=== PATIENT | male | born 1960 | race Caucasian/White ===

== ENCOUNTER → 2016-09-23 | Outpatient (CLI) | payer BC ==
[~2016-09-23] MED LIST: ATOR-26 PO; MULTTAB58 PO; TPRSR/50 PO; WARF-246 PO
[2016-09-23 09:32] LABS: BASO % 0.2 %; BASO ABS # 0.02 K/uL (0-0.2); COMPLETE YES; EOS % 1.5 %; HEMATOCRIT 44.9 % (42-52); IG% 0.1 %; LYMPH % 29.1 %; LYMPH ABS # 2.67 K/uL (1.2-3.4); MEAN CELL VOLUME 90.9 fL (80-100); MEAN CORPUSCULAR HEMOGLOBIN 31.6 pg (25-34); MEAN CORPUSCULAR HGB CONC 34.7 g/dl (32-36); MEAN PLATELET VOLUME 12.5 fL (7.4-10.4); MONO % 5.3 %; NEUT % 63.8 %; PLATELET COUNT 195 K/uL (130-400); RED BLOOD COUNT 4.94 M/uL (4.7-6.1); WHITE BLOOD COUNT 9.17 K/uL (4.8-10.8)
[2016-09-23 09:48] LABS: INR 1.2 (0.9-1.1); PROTHROMBIN TIME (PATIENT) 13.2 SECONDS (9.0-12.0)
== END | disposition home or self-care (01) ==
LOC: C.LAB 07:04
PROVIDERS: ATTEND Internal Medicine Cardiovascular Disease
DX: N40.1 Benign prostatic hyperplasia with lower urinary tract symptoms (principal); I35.9 Nonrheumatic aortic valve disorder, unspecified; I25.10 Atherosclerotic heart disease of native coronary artery without angina pectoris

== ENCOUNTER → 2016-10-04 | Outpatient (CLI) | payer BC ==
[2016-10-04 09:40] LABS: INR 2.5 (0.9-1.1); PROTHROMBIN TIME (PATIENT) 27.8 SECONDS (9.0-12.0)
== END | disposition home or self-care (01) ==
LOC: C.LAB 07:15
PROVIDERS: ATTEND Internal Medicine Cardiovascular Disease
DX: I35.9 Nonrheumatic aortic valve disorder, unspecified (principal)

== ENCOUNTER → 2017-07-03 | Outpatient (CLI) | payer BC | END | disposition home or self-care (01) | LOC: C.LAB 08:50 | PROVIDERS: ATTEND Physician Assistant | DX: E78.5 Hyperlipidemia, unspecified (principal) ==

== ENCOUNTER 2017-12-16 14:09 | Inpatient (IN) | payer BC ==
[2017-12-16] VITALS (9 sets, daily range): BP systolic 131–165; BP diastolic 79–180; PULSE 79–90; TEMP 36.3–36.8; O2SAT 16–98; Ht 177.8 cm; Wt 93.5 kg
[~2017-12-16] VITALS: Ht 177.8 cm; Wt 93.5 kg
[~2017-12-16 14:09] MED LIST changes: -ATOR-26 PO; -WARF-246 PO
[2017-12-16] MEDS ORDERED: SODIUM CHLORIDE 0.9% 1000ML 1,000 ML IV STA (14:14)
[2017-12-16] MEDS ORDERED: ONDANSETRON INJ 2 MG/ML 2 ML VIAL IV STA (14:14)
[2017-12-16] MEDS ORDERED: OPTIRAY 320 IV PRN (14:45)
[2017-12-16] MEDS ORDERED: PROMETHAZINE HCL INJ 12.5 MG in SODIUM CHLORIDE 0.9% 50ML 50 ML IV STA (14:48)
[2017-12-16] MEDS ORDERED: PROMETHAZINE HCL INJ 25 MG/ML 1 ML VIAL ONE (14:58)
--- NOTE | 2017-12-16 14:58 | EMERGENCY ROOM VISIT NOTE ---
History Report prepared by Alondra: Ashlyn Zuniga Under the Supervision of: Dr. Keo Capellan D.O. First contact with patient: 14:10 Stated Complaint: ILLNESS History of Present Illness The patient is a 57 year old male who presents to the Emergency Room with complaints of an episode of an illness starting 30 minutes ago. 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 He states that he went over to [place] for lunch with his coworkers. He states that 20 minutes after returning to work he started to feel nauseous. He reports he then had abdominal pain, diaphoresis, and vomiting. He states that none of his coworkers became sick, but he thinks it is food poisoning. The patient states that he felt like on the way here he was going to lose control of his bowels. The patient notes that he has not drank anything all day. The patient notes that she takes Warfarin and Metoprolol. The patient denies chest pain, shortness of breath, current abdominal pain, headache, fever , chills, confusion, ever having this happen before, working with chemicals today, a history of abdominal surgeries, a history of cancer, and a history of diabetes. Source of History: patient Onset: 30 minutes ago Position: abdomen Quality: other (illness) Timing: other (episode) Associated Symptoms: + diaphoresis, + nausea, + vomiting, No fevers, No chills, No headache, No chest pain, No SOB, No abdominal pain Note: The patient complains of feeling like he is going to lose his bowels. The patient denies confusion. Review of Systems See HPI for pertinent positives & negatives. A total of 10 systems reviewed and were otherwise negative. Past Medical & Surgical Medical Problems: (1) AORTOCORONARY BYPASS (2) ATRIAL FIBRILLATION (3) CALCULUS OF URETER (4) CORON ATHEROSCLER NOS TYPE VESSEL, [place] OR GRAFT (5) DEPRESSIVE DISORDER NEC (6) ENDOCARDITIS NOS (7) HYPERTENSION NOS (8) PURE HYPERCHOLESTEROLEM Surgical Problems: (1) H/O aortic valve replacement Family History Cancer Heart disease Hypertension Kidney disease or stones Social History Smoking Status: Never Smoker Alcohol Use: none Drug Use: none Marital Status: Housing Status: lives with significant other Occupation Status: retired Current/Historical Medications Scheduled Atorvastatin (Lipitor), 80 MG PO QAM Metoprolol Succinate (Toprol Xl), 50 MG PO DAILY Multiple Vitamin (Multivitamin), 1 TAB PO DAILY Warfarin Sodium (Warfarin Sodium), 15 MG PO 5XWK Warfarin Sodium (Warfarin Sodium), 10 MG PO 2XWK Allergies Coded Allergies: Itraconazole (Verified Allergy, Unknown, headache, 11/05/13) pt Sertraline (Verified Allergy, Unknown, feels nutty, 11/05/13) pt Physical Exam Vital Signs Date Time Temp Pulse Resp B/P (MAP) Pulse Ox O2 Delivery O2 Flow Rate FiO2 12/16/17 18:20 74 12 153/80 95 Room Air 12/16/17 18:05 74 16 162/82 94 Room Air 12/16/17 18:00 77 12 154/78 95 Room Air 12/16/17 17:47 80 20 168/87 99 Room Air 12/16/17 17:30 70 12 186/96 94 Room Air 12/16/17 17:16 70 22 179/99 97 Room Air 12/16/17 17:10 72 23 185/92 97 Room Air 12/16/17 17:02 70 14 181/97 98 Room Air 12/16/17 16:40 69 14 151/83 98 Room Air 12/16/17 15:53 74 18 145/77 93 Room Air 12/16/17 14:40 99 Room Air 12/16/17 14:39 69 18 146/74 100 Room Air 12/16/17 14:27 78 12/16/17 14:15 36.7 69 18 138/74 99 Room Air Physical Exam GENERAL: Patient is listless and slow to respond to questions. Very diaphoretic. EYES: The conjunctivae are clear. The pupils are round and reactive. EARS, NOSE, MOUTH AND THROAT: The nose is without any evidence of any deformity. Mucous membranes are dry. Tongue is midline NECK: The neck is nontender and supple. RESPIRATORY: Normal respiratory effort is noted. There is no evidence of wheezing rhonchi or rales to auscultation. CARDIOVASCULAR: Regular rate and rhythm. There was a metallic click noted. GASTROINTESTINAL: The abdomen is mildly distended, but soft. No tenderness, guarding, or rigidity. Bowel sounds are present in all quadrants. MUSCULOSKELETAL/EXTREMITIES: There is no evidence of gross deformity. Full range of motion is noted in the hips and shoulders. SKIN: Trace pedal edema bilaterally. Skin is cool and diaphoretic. There is no obvious evidence of any rash. There are no petechiae, pallor or cyanosis noted. NEUROLOGIC: Patient is oriented x3. Strength is symmetric. No facial droop or drift appreciated. Pressured speech, but understandable. Medical Decision & Procedures ER Provider Diagnostic Interpretation: Radiology results as stated below per my review and radiologist interpretation: CHEST ONE VIEW PORTABLE HISTORY: 57 years-old Male EVALUATE ALTERED MENTAL STATUS/WEAKNESS acute weakness with altered mental status COMPARISON: Chest radiograph 07/08/2012 TECHNIQUE: Portable AP view of the chest FINDINGS: Cardiac silhouette is enlarged, increased in size from comparison. Prior median sternotomy with cardiac valvular prosthesis. Surgical clips project over the left heart border. Prominence of the mediastinum. No pneumothorax, pleural effusion, focal airspace consolidation or overt pulmonary edema. The bones of the chest appear grossly intact. IMPRESSION: Cardiomegaly without acute process. The above report was generated using voice recognition software. It may contain grammatical, syntax or spelling errors. Electronically signed by: Juan Bhatia M.D. 12/16/2017 3:54 PM Dictated Date/Time: 12/16/2017 3:53 PM HEAD WITHOUT CONTRAST (CT) CLINICAL HISTORY: 57 years-old Male with vomiting, letargic. Acute vomiting with dizziness and weakness TECHNIQUE: Multiple axial CT images of the head were obtained without contrast. A dose lowering technique was utilized adhering to the principles of ALARA. CT DOSE: 614.27 mGy.cm COMPARISON: None. FINDINGS: No acute intracranial hemorrhage, midline shift, intracranial mass, hydrocephalus, territorial ischemia or abnormal extra-axial collection. 2.1 x 1.3 cm area of low-attenuation involving the peripheral aspect of the mid right cerebellar hemisphere suggests encephalomalacia from remote infarction. There is an area of ill-defined low-attenuation involving the right occipital lobe on image 13 series 2 with possible blurring of the espinal-white interface within this distribution. Cerebral vascular calcifications are noted. The calvarium is intact. The paranasal sinuses, mastoid air cells, and middle ear cavities are clear. IMPRESSION: 1. No acute intracranial hemorrhage, midline shift or territorial infarct. 2. Ill-defined area of low-attenuation involving the right occipital lobe may reflect an area of developing acute ischemic infarction within the appropriate clinical setting or alternatively may reflect sulcal averaging with adjacent encephalomalacia. These findings could be correlated with MRI of the brain if clinically indicated. 3. Encephalomalacia of the right cerebellar hemisphere from remote infarct. The above report was generated using voice recognition software. It may contain grammatical, syntax or spelling errors. Electronically signed by: Juan Bhatia M.D. 12/16/2017 3:23 PM Dictated Date/Time: 12/16/2017 3:16 PM ABDOMEN AND PELVIS CT WITH IV CONTRAST CT DOSE: 509.26 mGy.cm HISTORY: Acute vomiting vomiting TECHNIQUE: Multiaxial CT images of the abdomen and pelvis were performed following the use of intravenous contrast. A dose lowering technique was utilized adhering to the principles of ALARA. COMPARISON STUDY: CT abdomen and pelvis 03/31/2015. FINDINGS: Bibasilar groundglass densities suggest atelectasis. No pneumatosis or pneumoperitoneum identified. Imaged inferior cardiac chambers are mildly enlarged with coronary arterial calcifications noted. Gallbladder, liver, spleen, pancreas and adrenal glands are unremarkable. 3 mm nonobstructing calculus of the interpolar right kidney with nonobstructing calculi of the inferior pole left kidney also noted measuring up to 3 mm. No ureteral calculi or obstructive uropathy identified. The ureters appear unremarkable. Prostamegaly. Bladder is partially decompressed. Moderate mixed plaquing of the aorta without aneurysm. IVC appears unremarkable. No pathologically enlarged lymph nodes identified. Small sliding-type hiatal hernia. No bowel obstruction. Moderate stool volume about the sigmoid colon and rectum with stool ball within the rectal vault. Colonic diverticulosis without definite CT evidence of acute diverticulitis. Mild wall thickening about the mid sigmoid colon suggests hypertrophy from chronic diverticular disease. The terminal ileum and appendix appear unremarkable. No ascites or mesenteric inflammatory changes. The soft tissues are within normal limits. Degenerative changes of the hips and spine are noted. IMPRESSION: 1. Probable mild constipation without bowel obstruction or focal bowel wall thickening. 2. Colonic diverticulosis without diverticulitis. 3. Bilateral nephrolithiasis without ureteral calculi or obstructive uropathy. 4. Prostamegaly. 5. Small sliding-type hiatal hernia. Electronically signed by: Juan Bhatia M.D. 12/16/2017 3:28 PM Dictated Date/Time: 12/16/2017 3:21 PM Laboratory Results 12/16/17 14:15 Red Blood Count 5.07, Mean Corpuscular Volume 89.2, Mean Corpuscular Hemoglobin 31.6, Mean Corpuscular Hemoglobin Concent 35.4, Mean Platelet Volume 12.1, Neutrophils (%) (Auto) 58.8, Lymphocytes (%) (Auto) 33.2, Monocytes (%) (Auto) 7.2, Eosinophils (%) (Auto) 0.4, Basophils (%) (Auto) 0.2, Neutrophils # (Auto) 7.51, Lymphocytes # (Auto) 4.24, Monocytes # (Auto) 0.92, Eosinophils # (Auto) 0.05, Basophils # (Auto) 0.02 12/16/17 14:15 Test 12/16/17 14:15 12/16/17 15:09 12/16/17 15:43 White Blood Count 12.77 K/uL (4.8-10.8) Red Blood Count 5.07 M/uL (4.7-6.1) Hemoglobin 16.0 g/dL (14.0-18.0) Hematocrit 45.2 % (42-52) Mean Corpuscular Volume 89.2 fL (80-100) Mean Corpuscular Hemoglobin 31.6 pg (25-34) Mean Corpuscular Hemoglobin Concent 35.4 g/dl (32-36) Platelet Count 199 K/uL (130-400) Mean Platelet Volume 12.1 fL (7.4-10.4) Neutrophils (%) (Auto) 58.8 % Lymphocytes (%) (Auto) 33.2 % Monocytes (%) (Auto) 7.2 % Eosinophils (%) (Auto) 0.4 % Basophils (%) (Auto) 0.2 % Neutrophils # (Auto) 7.51 K/uL (1.4-6.5) Lymphocytes # (Auto) 4.24 K/uL (1.2-3.4) Monocytes # (Auto) 0.92 K/uL (0.11-0.59) Eosinophils # (Auto) 0.05 K/uL (0-0.5) Basophils # (Auto) 0.02 K/uL (0-0.2) RDW Standard Deviation 42.5 fL (36.4-46.3) RDW Coefficient of Variation 13.1 % (11.5-14.5) Immature Granulocyte % (Auto) 0.2 % Immature Granulocyte # (Auto) 0.03 K/uL (0.00-0.02) Prothrombin Time 12.7 SECONDS (9.0-12.0) Prothromb Time International Ratio 1.2 (0.9-1.1) Activated Partial Thromboplast Time 24.0 SECONDS (21.0-31.0) Partial Thromboplastin Ratio 0.9 Est Creatinine Clear Calc Drug Dose 94.2 ml/min Estimated GFR () 93.0 Estimated GFR (Non- 80.3 BUN/Creatinine Ratio 21.6 (10-20) Calcium Level 9.5 mg/dl (8.5-10.1) Magnesium Level 2.4 mg/dl (1.8-2.4) Total Bilirubin 1.0 mg/dl (0.2-1) Direct Bilirubin 0.2 mg/dl (0-0.2) Aspartate Amino Transf (AST/SGOT) 23 U/L (15-37) Alanine Aminotransferase (ALT/SGPT) 28 U/L (12-78) Alkaline Phosphatase 81 U/L (45-117) Total Creatine Kinase 247 U/L (39-308) Creatine Kinase MB 2.6 ng/ml (0.5-3.6) Creatine Kinase MB Ratio 1.1 (0-3.0) Troponin I < 0.015 ng/ml (0-0.045) Total Protein 8.1 gm/dl (6.4-8.2) Albumin 4.6 gm/dl (3.4-5.0) Lipase 129 U/L (73-393) Thyroid Stimulating Hormone (TSH) 1.990 uIu/ml (0.300-4.500) Bedside Hemoglobin 14.3 g/dl (14.0-18.0) Bedside Hematocrit 42 % (42-52) Bedside Sodium 144 mEq/L (135-144) Bedside Potassium 3.6 mEq/L (3.3-5.0) Bedside Chloride 108 mEq/L (101-112) Bedside Total CO2 23 mEq/l (24-31) Anion Gap 17.0 mmol/L (16-25) Bedside Blood Urea Nitrogen 24 mg/dl (7-18) Bedside Creatinine 0.8 mg/dl (0.6-1.3) Bedside Glucose (other) 153 mg/dl (70-99) Bedside Ionized Calcium (Karyn) 1.09 mmol/l (1.12-1.32) Urine Color YELLOW Urine Appearance CLEAR (CLEAR) Urine pH 7.5 (4.5-7.5) Urine Specific [place] 1.042 (1.000-1.030) Urine Protein NEG (NEG) Urine Glucose (UA) NEG (NEG) Urine Ketones 1+ (NEG) Urine Occult Blood NEG (NEG) Urine Nitrite NEG (NEG) Urine Bilirubin NEG (NEG) Urine Urobilinogen NEG (NEG) Urine Leukocyte Esterase TRACE (NEG) Urine WBC (Auto) 1-5 /hpf (0-5) Urine RBC (Auto) 0-4 /hpf (0-4) Urine Hyaline Casts (Auto) 1-5 /lpf (0-5) Urine Epithelial Cells (Auto) 5-10 /lpf (0-5) Urine Bacteria (Auto) NEG (NEG) Laboratory results per my review. Medications Administered Medications (Trade) Dose Ordered Sig/Jesus Route Start Time Stop Time Status Last Admin Dose Admin Ondansetron HCl (Zofran Inj) 4 mg NOW STAT IV 12/16/17 14:14 12/16/17 14:16 DC 12/16/17 14:32 4 MG Sodium Chloride 1,000 ml @ 999 mls/hr Q1H1M STAT IV 12/16/17 14:14 12/16/17 15:14 DC 12/16/17 14:14 999 MLS/HR Promethazine HCl 12.5 mg/Sodium Chloride 50.5 ml @ 204 mls/hr NOW STAT IV 12/16/17 14:48 12/16/17 15:02 DC 12/16/17 15:01 204 MLS/HR Alteplase, Recombinant 81 mg/ Empty Bag 81 ml @ 81 mls/hr TODAY@1706 IV 12/16/17 17:06 12/16/17 18:05 DC 12/16/17 17:06 81 MLS/HR Alteplase, Recombinant 9 mg/ Syringe 9 ml @ 9 mls/min TODAY@1705 IV 12/16/17 17:05 12/16/17 17:06 DC 12/16/17 17:05 9 MLS/MIN ECG Per My Interpretation Indication: abdominal pain Rate (beats per minute): 61 Rhythm: sinus rhythm Findings: 1st degree AV block, Q waves (Anterior), other (LVH noted by voltage criteria) Comparison ECG Date: 11/05/2013 Change: no significant change ED Course 1411: The patient was evaluated in room C6. A complete history and physical examination were performed. 1414: Ordered NSS 1000 ml @ 999 mls/hr IV, Zofran Inj 4 mg IV. 1448: Ordered Promethazine HCL 12.5 mg/Sodium Chloride 50.5 ml @ 204 mls/hr IV. 1511: I reevaluated the patient and he is not looking well. He is still vomiting. 1537: I reevaluated the patient and I asked that they perform a stroke score on the patient. 1546: The patient had a stroke score of 5 according the nursing staff. A stroke alert was called at this time. 1610: I discussed the patient with Dr. Perico Lynch. They will evaluate the patient through the tele-stroke. 1642: Dr. Remi Lynch called me back and recommended discussing the CT with the radiologist. She recommends TPA if the stroke is confirmed that it is very early on and is less than 1/3 of the territory. 1645: I spoke to our radiologist here. They report that it is very small and is definitely smaller than 1/3 of the territory. They state that it is believed to be acute as well. 1652: I discussed the patient's case and what the radiologist said with Dr. Remi Lynch. It is agreed that the patient should receive TPA. 1653: I reevaluated the patient at this time and discussed the risks and benefits of TPA with him. He states that he would like the medication. 1705: Ordered Alteplase Recombinant 9 mg/Syringe 9 ml @ 9 mls/min IV. 1706: Ordered Alteplase Recombinant 81 mg/Empty Bag 81 ml @ 81 mls/hr Protocol IV. 1707: [facility]'s [facility]. The patient will be evaluated for further management. Medical Decision Differential diagnosis: Etiologies such as gastroenteritis, food borne illness, infections, appendicitis , diverticulitis, inflammatory bowel disease, obstruction, GI bleed, biliary pathology, as well as others were entertained. Nursing notes reviewed. Additional history was obtained from the prehospital personnel. The patient is a 57-year-old male who presented to the emergency department for an evaluation of nausea and vomiting. The patient's condition was rather complicated at first. His only complaint was nausea vomiting. He denies any headache. He did not have any facial droop or unilateral weakness. The patient 's speech was understandable but somewhat pressured. He does have a history of aortic valve replacement with Coumadin use but his INR was found to be subtherapeutic. The patient was reevaluated multiple times. CT the abdomen and pelvis did not reveal any acute intra-abdominal pathology. CT the head showed an area of previous infarct as well as a possible early infarct. The patient was then made a stroke alert and I discussed his case with the [facility] stroke neurologist. They recommended that we consider using TPA and the patient given his age and comorbidities. I discussed this with the patient and he was agreeable to TPA. The patient was given TPA in the emergency department. He was reevaluated multiple times. I discussed his case with the on-call [facility] hospitalist. It is possible that the patient's overall condition could be consistent with a posterior circulation stroke. The patient was admitted to the hospital by the [facility] hospitalist group. Further workup is still pending. Medication Reconcilliation Current Medication List: was personally reviewed by me Blood Pressure Screening Patient's blood pressure: Elevated blood pressure Will be further monitored by the hospitalist. Consults Time Called: 1559 Consulting Physician: Dr. Perico Lynch Returned Call: 1610 I discussed the patient with Dr. Perico Lynch. They will evaluate the patient through the tele-stroke. Additional Consults: Time Called: 1648 Consulted Physician: Dr. Remi [facility] Returned Call: 1652 Additional Comments: I discussed the patient's case and what the radiologist said with Dr. Remi Lynch. It is agreed that the patient should receive TPA. Time Called: 1703 Consulted Physician: Dr. Arechiga Hospitalist Returned Call: 1704 Additional Comments: I notified Dr. Arechiga Hospitalist of the patient's case. The patient will be evaluated for further management. Impression Primary Impression: Intractable vomiting Additional Impressions: CVA (cerebral vascular accident) Vertebral-basilar artery occlusive syndrome Critical Care I have personally spent greater than 60 minutes of critical care time in the direct management of this patient. This includes bedside care, interpretation of diagnostic studies, and testing, discussion with consultants, patient, and family members, and other required patient management activities. This 60 minutes is in excess of all separately billable procedures. Scribe Attestation The scribe's documentation has been prepared under my direction and personally reviewed by me in its entirety. I confirm that the note above accurately reflects all work, treatment, procedures, and medical decision making performed by me. Departure Information Dispostion Being Evaluated By Hospitalist Referrals No Doctor, Assigned (PCP) Stroke History Time Last Known Well 1340 Stroke t-PA Criteria Reviewed Meets criteria for t-PA Reason t-PA Not Given Treatment provided - N/A Problem Qualifiers Primary Impression: Intractable vomiting Vomiting type: unspecified Nausea presence: with nausea Qualified Codes: R11.2 - Nausea with vomiting, unspecified Additional Impressions: CVA (cerebral vascular accident) CVA mechanism: unspecified Qualified Codes: I63.9 - Cerebral infarction, unspecified
[2017-12-16 15:05] LABS: BASO % 0.2 %; BASO ABS # 0.02 K/uL (0-0.2); EOS % 0.4 %; EOS ABS # 0.05 K/uL (0-0.5); HEMATOCRIT 45.2 % (42-52); IG# 0.03 K/uL (0.00-0.02); LYMPH % 33.2 %; LYMPH ABS # 4.24 K/uL (1.2-3.4); MEAN CELL VOLUME 89.2 fL (80-100); MEAN CORPUSCULAR HEMOGLOBIN 31.6 pg (25-34); MEAN CORPUSCULAR HGB CONC 35.4 g/dl (32-36); MEAN PLATELET VOLUME 12.1 fL (7.4-10.4); MONO % 7.2 %; MONO ABS # 0.92 K/uL (0.11-0.59); NEUT % 58.8 %; NEUT ABS # 7.51 K/uL (1.4-6.5); PLATELET COUNT 199 K/uL (130-400); RED CELL DISTRIBUTION WIDTH CV 13.1 % (11.5-14.5); RED CELL DISTRIBUTION WIDTH SD 42.5 fL (36.4-46.3); WHITE BLOOD COUNT 12.77 K/uL (4.8-10.8)
[2017-12-16 15:15] LABS: INR 1.2 (0.9-1.1)
[2017-12-16 15:18] LABS: ISTAT CREATININE 0.8 mg/dl (0.6-1.3); ISTAT IONIZED CALCIUM 1.09 mmol/l (1.12-1.32); ISTAT POTASSIUM 3.6 mEq/L (3.3-5.0)
--- NOTE | 2017-12-16 15:24 | DIAGNOSTIC IMAGING REPORT ---
HEAD WITHOUT CONTRAST (CT) CLINICAL HISTORY: 57 years-old Male with vomiting, letargic. Acute vomiting with dizziness and weakness TECHNIQUE: Multiple axial CT images of the head were obtained without contrast. A dose lowering technique was utilized adhering to the principles of ALARA. CT DOSE: 614.27 mGy.cm COMPARISON: None. FINDINGS: No acute intracranial hemorrhage, midline shift, intracranial mass, hydrocephalus, territorial ischemia or abnormal extra-axial collection. 2.1 x 1.3 cm area of low-attenuation involving the peripheral aspect of the mid right cerebellar hemisphere suggests encephalomalacia from remote infarction. There is an area of ill-defined low-attenuation involving the right occipital lobe on image 13 series 2 with possible blurring of the espinal-white interface within this distribution. Cerebral vascular calcifications are noted. The calvarium is intact. The paranasal sinuses, mastoid air cells, and middle ear cavities are clear. IMPRESSION: 1. No acute intracranial hemorrhage, midline shift or territorial infarct. 2. Ill-defined area of low-attenuation involving the right occipital lobe may reflect an area of developing acute ischemic infarction within the appropriate clinical setting or alternatively may reflect sulcal averaging with adjacent encephalomalacia. These findings could be correlated with MRI of the brain if clinically indicated. 3. Encephalomalacia of the right cerebellar hemisphere from remote infarct. The above report was generated using voice recognition software. It may contain grammatical, syntax or spelling errors. Electronically signed by: Juan Bhatia M.D. 12/16/2017 3:23 PM Dictated Date/Time: 12/16/2017 3:16 PM
--- NOTE | 2017-12-16 15:29 | DIAGNOSTIC IMAGING REPORT ---
ABDOMEN AND PELVIS CT WITH IV CONTRAST CT DOSE: 509.26 mGy.cm HISTORY: Acute vomiting vomiting TECHNIQUE: Multiaxial CT images of the abdomen and pelvis were performed following the use of intravenous contrast. A dose lowering technique was utilized adhering to the principles of ALARA. COMPARISON STUDY: CT abdomen and pelvis 03/31/2015. FINDINGS: Bibasilar groundglass densities suggest atelectasis. No pneumatosis or pneumoperitoneum identified. Imaged inferior cardiac chambers are mildly enlarged with coronary arterial calcifications noted. Gallbladder, liver, spleen, pancreas and adrenal glands are unremarkable. 3 mm nonobstructing calculus of the interpolar right kidney with nonobstructing calculi of the inferior pole left kidney also noted measuring up to 3 mm. No ureteral calculi or obstructive uropathy identified. The ureters appear unremarkable. Prostamegaly. Bladder is partially decompressed. Moderate mixed plaquing of the aorta without aneurysm. IVC appears unremarkable. No pathologically enlarged lymph nodes identified. Small sliding-type hiatal hernia. No bowel obstruction. Moderate stool volume about the sigmoid colon and rectum with stool ball within the rectal vault. Colonic diverticulosis without definite CT evidence of acute diverticulitis. Mild wall thickening about the mid sigmoid colon suggests hypertrophy from chronic diverticular disease. The terminal ileum and appendix appear unremarkable. No ascites or mesenteric inflammatory changes. The soft tissues are within normal limits. Degenerative changes of the hips and spine are noted. IMPRESSION: 1. Probable mild constipation without bowel obstruction or focal bowel wall thickening. 2. Colonic diverticulosis without diverticulitis. 3. Bilateral nephrolithiasis without ureteral calculi or obstructive uropathy. 4. Prostamegaly. 5. Small sliding-type hiatal hernia. Electronically signed by: Juan Bhatia M.D. 12/16/2017 3:28 PM Dictated Date/Time: 12/16/2017 3:21 PM
[2017-12-16 15:32] LABS: ALBUMIN 4.6 gm/dl (3.4-5.0); ALKALINE PHOSPHATASE 81 U/L (45-117); ALT/SGPT 28 U/L (12-78); AST/SGOT 23 U/L (15-37); BLOOD UREA NITROGEN 22 mg/dl (7-18); CALCIUM 9.5 mg/dl (8.5-10.1); CARBON DIOXIDE 22 mmol/L (21-32); CKMB 2.6 ng/ml (0.5-3.6); CREATININE 1.03 mg/dl (0.60-1.40); GLUCOSE 148 mg/dl (70-99); LIPASE 129 U/L (73-393); POTASSIUM 3.5 mmol/L (3.5-5.1); SODIUM 142 mmol/L (136-145); TOTAL PROTEIN 8.1 gm/dl (6.4-8.2)
--- NOTE | 2017-12-16 15:55 | DIAGNOSTIC IMAGING REPORT ---
CHEST ONE VIEW PORTABLE HISTORY: 57 years-old Male EVALUATE ALTERED MENTAL STATUS/WEAKNESS acute weakness with altered mental status COMPARISON: Chest radiograph 07/08/2012 TECHNIQUE: Portable AP view of the chest FINDINGS: Cardiac silhouette is enlarged, increased in size from comparison. Prior median sternotomy with cardiac valvular prosthesis. Surgical clips project over the left heart border. Prominence of the mediastinum. No pneumothorax, pleural effusion, focal airspace consolidation or overt pulmonary edema. The bones of the chest appear grossly intact. IMPRESSION: Cardiomegaly without acute process. The above report was generated using voice recognition software. It may contain grammatical, syntax or spelling errors. Electronically signed by: Juan Bhatia M.D. 12/16/2017 3:54 PM Dictated Date/Time: 12/16/2017 3:53 PM
[2017-12-16] MEDS ORDERED: METO-217 PO (16:17)
[2017-12-16] MEDS ORDERED: ATOR-26 PO (16:43)
[2017-12-16] MEDS ORDERED: ALTEPLASE, RECOMBINANT INJ 9 MG in SYRINGE 0 ML IV SCH (17:05)
[2017-12-16] MEDS ORDERED: SET 2260-0500 IV ONE (17:06)
[2017-12-16] MEDS ORDERED: ALTEPLASE, RECOMBINANT INJ 81 MG in EMPTY BAG 0 ML IV SCH (17:06)
[2017-12-16] MEDS ORDERED: ICU PROTOCOL FOR HYPERGLYCEMIA PRN (18:00)
[2017-12-16] MEDS ORDERED: ACETAMINOPHEN 325 MG TAB PO PRN (18:00)
[2017-12-16] MEDS ORDERED: PHARMACIST DISCHARGE MED REC CONSULT PRN ×3 (18:00→23:00)
--- NOTE | 2017-12-16 18:31 | History and Physical ---
History & Physical Date & Time of Service: Dec 16, 2017 at 17:26 Chief Complaint: Illness Primary Care Physician: No Doctor, Assigned History of Present Illness Source: patient, clinic records Mr. Ríos was at work today when he began to feel a strange feeling in his left arm as well as lack of balance. However, he began vomiting and upon arriving to the ED that initially appeared to be his main problem as he was not communicating his symptoms. He was sent for a CT and an acute infarct was found in the right occiput. His NIHSS was initially 5 - he had slurred speech, left arm drift, not oriented to date. At this time he continues to have slurred speech but per nursing his other symptoms have resolved. He was a stroke alert and TPA was initiated at 1705. He does take Coumadin for a prosthetic aortic valve however he was not therapeutic, INR was 1.2, when asked if he was taking it he states that he was, but might have missed a few doses. ROS Constitutional: no chills, aches, sweats or fever Respiratory: no sob,cough, sputum, or wheezing Cardiac: no chest pain, palpitations, edema, orthopnea or lightheadedness GI: no abdominal pain, nausea, vomiting, diarrhea or constipation : no dysuria or hesitancy Extremities: see HPI Skin: no rash All other systems reviewed and negative Past Medical/Surgical History Medical Problems: (1) AORTOCORONARY BYPASS (2) ATRIAL FIBRILLATION (3) CALCULUS OF URETER (4) CORON ATHEROSCLER NOS TYPE VESSEL, SHISHMAREF IRA OR GRAFT (5) DEPRESSIVE DISORDER NEC (6) Diverticulitis (7) ENDOCARDITIS NOS (8) HYPERTENSION NOS (9) Laceration of finger of left hand (10) Neck pain (11) PURE HYPERCHOLESTEROLEM (12) Sigmoid diverticulitis Surgical Problems: (1) H/O aortic valve replacement Family History Cancer Heart disease Hypertension Kidney disease or stones Father in his sleep, unsure of any other history Mother has had strokes, still living Social History Smoking Status: Never Smoker Smokeless Tobacco Use: No Alcohol Use: occasionally Drug Use: none Marital Status: single Housing status: lives alone Occupational Status: employed Immunizations History of Influenza Vaccine: No History of Tetanus Vaccine?: Yes History of Pneumococcal: No History of Hepatitis B Vaccine: No Allergies Coded Allergies: Itraconazole (Verified Allergy, Unknown, headache, 11/05/13) pt Sertraline (Verified Allergy, Unknown, feels nutty, 11/05/13) pt Home Medications Scheduled Atorvastatin (Lipitor), 80 MG PO QAM Metoprolol Succinate (Toprol Xl), 50 MG PO DAILY Multiple Vitamin (Multivitamin), 1 TAB PO DAILY Warfarin Sodium (Warfarin Sodium), 15 MG PO 5XWK Warfarin Sodium (Warfarin Sodium), 10 MG PO 2XWK Physical Exam Vital Signs Date Time Temp Pulse Resp B/P (MAP) Pulse Ox O2 Delivery O2 Flow Rate FiO2 12/16/17 17:16 70 22 179/99 97 Room Air 12/16/17 17:10 72 23 185/92 97 Room Air 12/16/17 17:02 70 14 181/97 98 Room Air 12/16/17 16:40 69 14 151/83 98 Room Air 12/16/17 15:53 74 18 145/77 93 Room Air 12/16/17 14:40 99 Room Air 12/16/17 14:39 69 18 146/74 100 Room Air 12/16/17 14:27 78 12/16/17 14:15 36.7 69 18 138/74 99 Room Air General: no distress Eyes: normal inspection, PERLL Respiratory: chest non tender, clear to auscultation, normal breath sounds, no respiratory distress, no accessory muscle use Cardiac: regular rate and rhythm, no rub or gallop, no murmur, no edema, no jvd GI/: active bowel sounds, no abd pain or tenderness, soft, non distended Extremities: normal range of motion, normal strength, non tender Neuro/Psych: drowsy and oriented x 3, speech is slurred, mild aphasia, mild right pronator drift. Skin: normal color, dry Diagnostics Laboratory Results Results Past 24 Hours Test 12/16/17 14:15 12/16/17 15:09 12/16/17 15:43 Range/Units White Blood Count 12.77 4.8-10.8 K/uL Red Blood Count 5.07 4.7-6.1 M/uL Hemoglobin 16.0 14.0-18.0 g/dL Hematocrit 45.2 42-52 % Mean Corpuscular Volume 89.2 80-100 fL Mean Corpuscular Hemoglobin 31.6 25-34 pg Mean Corpuscular Hemoglobin Concent 35.4 32-36 g/dl Platelet Count 199 130-400 K/uL Mean Platelet Volume 12.1 7.4-10.4 fL Neutrophils (%) (Auto) 58.8 % Lymphocytes (%) (Auto) 33.2 % Monocytes (%) (Auto) 7.2 % Eosinophils (%) (Auto) 0.4 % Basophils (%) (Auto) 0.2 % Neutrophils # (Auto) 7.51 1.4-6.5 K/uL Lymphocytes # (Auto) 4.24 1.2-3.4 K/uL Monocytes # (Auto) 0.92 0.11-0.59 K/uL Eosinophils # (Auto) 0.05 0-0.5 K/uL Basophils # (Auto) 0.02 0-0.2 K/uL RDW Standard Deviation 42.5 36.4-46.3 fL RDW Coefficient of Variation 13.1 11.5-14.5 % Immature Granulocyte % (Auto) 0.2 % Immature Granulocyte # (Auto) 0.03 0.00-0.02 K/uL Prothrombin Time 12.7 9.0-12.0 SECONDS Prothromb Time International Ratio 1.2 0.9-1.1 Activated Partial Thromboplast Time 24.0 21.0-31.0 SECONDS Partial Thromboplastin Ratio 0.9 Sodium Level 142 136-145 mmol/L Potassium Level 3.5 3.5-5.1 mmol/L Chloride Level 108 98-107 mmol/L Carbon Dioxide Level 22 21-32 mmol/L Anion Gap 12.0 17.0 16-25 mmol/L Blood Urea Nitrogen 22 7-18 mg/dl Creatinine 1.03 0.60-1.40 mg/dl Est Creatinine Clear Calc Drug Dose 94.2 ml/min Estimated GFR () 93.0 Estimated GFR (Non- 80.3 BUN/Creatinine Ratio 21.6 10-20 Random Glucose 148 70-99 mg/dl Calcium Level 9.5 8.5-10.1 mg/dl Magnesium Level 2.4 1.8-2.4 mg/dl Total Bilirubin 1.0 0.2-1 mg/dl Direct Bilirubin 0.2 0-0.2 mg/dl Aspartate Amino Transf (AST/SGOT) 23 15-37 U/L Alanine Aminotransferase (ALT/SGPT) 28 12-78 U/L Alkaline Phosphatase 81 45-117 U/L Total Creatine Kinase 247 39-308 U/L Creatine Kinase MB 2.6 0.5-3.6 ng/ml Creatine Kinase MB Ratio 1.1 0-3.0 Troponin I < 0.015 0-0.045 ng/ml Total Protein 8.1 6.4-8.2 gm/dl Albumin 4.6 3.4-5.0 gm/dl Lipase 129 73-393 U/L Thyroid Stimulating Hormone (TSH) 1.990 0.300-4.500 uIu/ml Bedside Hemoglobin 14.3 14.0-18.0 g/dl Bedside Hematocrit 42 42-52 % Bedside Sodium 144 135-144 mEq/L Bedside Potassium 3.6 3.3-5.0 mEq/L Bedside Chloride 108 101-112 mEq/L Bedside Total CO2 23 24-31 mEq/l Bedside Blood Urea Nitrogen 24 7-18 mg/dl Bedside Creatinine 0.8 0.6-1.3 mg/dl Bedside Glucose (other) 153 70-99 mg/dl Bedside Ionized Calcium (Karyn) 1.09 1.12-1.32 mmol/l Urine Color YELLOW Urine Appearance CLEAR CLEAR Urine pH 7.5 4.5-7.5 Urine Specific [place] 1.042 1.000-1.030 Urine Protein NEG NEG Urine Glucose (UA) NEG NEG Urine Ketones 1+ NEG Urine Occult Blood NEG NEG Urine Nitrite NEG NEG Urine Bilirubin NEG NEG Urine Urobilinogen NEG NEG Urine Leukocyte Esterase TRACE NEG Urine WBC (Auto) 1-5 0-5 /hpf Urine RBC (Auto) 0-4 0-4 /hpf Urine Hyaline Casts (Auto) 1-5 0-5 /lpf Urine Epithelial Cells (Auto) 5-10 0-5 /lpf Urine Bacteria (Auto) NEG NEG Diagnostic Radiology ABDOMEN AND PELVIS CT WITH IV CONTRAST CT DOSE: 509.26 mGy.cm HISTORY: Acute vomiting vomiting TECHNIQUE: Multiaxial CT images of the abdomen and pelvis were performed following the use of intravenous contrast. A dose lowering technique was utilized adhering to the principles of ALARA. COMPARISON STUDY: CT abdomen and pelvis 03/31/2015. FINDINGS: Bibasilar groundglass densities suggest atelectasis. No pneumatosis or pneumoperitoneum identified. Imaged inferior cardiac chambers are mildly enlarged with coronary arterial calcifications noted. Gallbladder, liver, spleen, pancreas and adrenal glands are unremarkable. 3 mm nonobstructing calculus of the interpolar right kidney with nonobstructing calculi of the inferior pole left kidney also noted measuring up to 3 mm. No ureteral calculi or obstructive uropathy identified. The ureters appear unremarkable. Prostamegaly. Bladder is partially decompressed. Moderate mixed plaquing of the aorta without aneurysm. IVC appears unremarkable. No pathologically enlarged lymph nodes identified. Small sliding-type hiatal hernia. No bowel obstruction. Moderate stool volume about the sigmoid colon and rectum with stool ball within the rectal vault. Colonic diverticulosis without definite CT evidence of acute diverticulitis. Mild wall thickening about the mid sigmoid colon suggests hypertrophy from chronic diverticular disease. The terminal ileum and appendix appear unremarkable. No ascites or mesenteric inflammatory changes. The soft tissues are within normal limits. Degenerative changes of the hips and spine are noted. IMPRESSION: 1. Probable mild constipation without bowel obstruction or focal bowel wall thickening. 2. Colonic diverticulosis without diverticulitis. 3. Bilateral nephrolithiasis without ureteral calculi or obstructive uropathy. 4. Prostamegaly. 5. Small sliding-type hiatal hernia. Electronically signed by: Juan Bhatia M.D. 12/16/2017 3:28 PM HEAD WITHOUT CONTRAST (CT) CLINICAL HISTORY: 57 years-old Male with vomiting, letargic. Acute vomiting with dizziness and weakness TECHNIQUE: Multiple axial CT images of the head were obtained without contrast. A dose lowering technique was utilized adhering to the principles of ALARA. CT DOSE: 614.27 mGy.cm COMPARISON: None. FINDINGS: No acute intracranial hemorrhage, midline shift, intracranial mass, hydrocephalus, territorial ischemia or abnormal extra-axial collection. 2.1 x 1.3 cm area of low-attenuation involving the peripheral aspect of the mid right cerebellar hemisphere suggests encephalomalacia from remote infarction. There is an area of ill-defined low-attenuation involving the right occipital lobe on image 13 series 2 with possible blurring of the espinal-white interface within this distribution. Cerebral vascular calcifications are noted. The calvarium is intact. The paranasal sinuses, mastoid air cells, and middle ear cavities are clear. IMPRESSION: 1. No acute intracranial hemorrhage, midline shift or territorial infarct. 2. Ill-defined area of low-attenuation involving the right occipital lobe may reflect an area of developing acute ischemic infarction within the appropriate clinical setting or alternatively may reflect sulcal averaging with adjacent encephalomalacia. These findings could be correlated with MRI of the brain if clinically indicated. 3. Encephalomalacia of the right cerebellar hemisphere from remote infarct. CHEST ONE VIEW PORTABLE HISTORY: 57 years-old Male EVALUATE ALTERED MENTAL STATUS/WEAKNESS acute weakness with altered mental status COMPARISON: Chest radiograph 07/08/2012 TECHNIQUE: Portable AP view of the chest FINDINGS: Cardiac silhouette is enlarged, increased in size from comparison. Prior median sternotomy with cardiac valvular prosthesis. Surgical clips project over the left heart border. Prominence of the mediastinum. No pneumothorax, pleural effusion, focal airspace consolidation or overt pulmonary edema. The bones of the chest appear grossly intact. IMPRESSION: Cardiomegaly without acute process. Electronically signed by: Juan Bhatia M.D. 12/16/2017 3:54 PM EKG Sinus rhythm with 1st degree A-V block Possible Left atrial enlargement Left axis deviation Left ventricular hypertrophy with QRS widening and repolarization abnormality Abnormal ECG When compared with ECG of 05-NOV-2013 12:33, QRS duration has increased Confirmed by JUANCARLOS STEVENS ([id number]) on 12/16/2017 4:19:23 PM Impression Assessment and Plan Mr. Ríos is a 57 year old man here for CVA CVA requiring TPA - admit ICU, consult pharmacy specialist - Tpa protocol - CT head showed evolving stroke in the right occiput - MRI, MRA head, carotid ultrasound - continue home 80 mg atorvastatin - start asa tomorrow after 24 hour period - PT/OT/speech - NPO for now, complete bedrest until 24 hour tPA period is over - consult neurology - EKG with prolonged QT - permissive htn - reduced home metoprolol to 25 from 50 mg for tomorrow - Echo - NIHSS qS and per tPA protocol Afib, mechanical aortic valve, CAD, dyslipidemia - hold coumadin for now - can restart tomorrow after 24 hours, INR subtherapeutic at 1.2 on admission - continue metoprolol as above, statin - consult cardiology, patient sees Dr. Valles Full code No DVT prophylaxis until tPA 24 hour period is over, SCDs [employer] Physician Supervision Note: I interviewed and examined the patient. Discussed with Angela Pinzon NP and agree with findings and plan as documented in the note. Any exceptions or clarifications are listed here: None 57-year-old male with a mechanical aortic valve who presents with likely embolic CVA and a subtherapeutic INR. Initially patient presented with gastrointestinal symptoms of nausea and vomiting a CT scan however did reveal a subacute infarct he did have some speech issues and some mild right arm weakness. He was able to communicate when I evaluated him and relate to me a person of contact that he wished to be notified. I was able to reach this person and informed him of Mr. Ríos his condition and he voiced understanding and willingness to come in the hospital to visit In the ER his vital signs are relatively stable his cardiac exam is heard a typical mechanical valve heart sound his lungs were clear his abdomen was normal active bowel sounds and soft his extremities without edema he did have some dysmetria to his arm movements I did not visibly see any gross facial drooping but he did have some word finding issues Patient did qualify for TPA administration will be admitted to the intensive care unit on day 1 of TPA allowing permissive hypertension by reducing his metoprolol holding and anticoagulation for 24 hours and then resuming full anticoagulation for his mechanical aortic valve Documented By: Emmanuel Alicia Advanced Directives Existing Advance Directive: No Existing Living Will: No Existing Power of Hand Paint Mixer: No Existing Health Care Proxy: No Resuscitation Status full code VTE Prophylaxis Will order VTE Prophylaxis: Yes
[2017-12-16] MEDS ORDERED: ONDANSETRON INJ 2 MG/ML 2 ML VIAL ONE (19:26)
[2017-12-16] MEDS ORDERED: ONDANSETRON INJ 6 MG in DEXTROSE 5% 50ML 50 ML IV PRN (19:30)
--- NOTE | 2017-12-16 19:57 | Critical Care Consultation ---
Critical Care Consultation Date of Consultation: Dec 16, 2017. Attending Physician: Emmanuel Alicia M.D. Reason for Consultation: 57-year-old male with acute onset of slurred speech with focal findings appreciated in the emergency department and associated RIGHT occipital CVA noted on CT. Patient underwent administration of of TPA. Currently requiring close hemodynamic monitoring, multiple neurological checks, and adherence to strict protocol status post TPA administration. History of Present Illness Patient is a 57-year-old male with a significant past medical history of atrial fibrillation he was anticoagulated on Coumadin as well as coronary atherosclerosis status post bypass grafting as well as LEFT-sided CEA. The patient was working in [employer] today and had lunch at a local [employer] restaurant. Shortly after his meal, he reports that he felt overcome with nausea as well as a flushed sensation and lightheadedness. He was adamant that his symptoms were related to his meal. He reports having severe nausea and vomiting as well. He subsequently presented to the emergency department where he underwent evaluation. He initially was treated with IV fluids as well as Zofran and Phenergan. CT of the abdomen and pelvis was obtained which was otherwise unremarkable. He had a slight leukocytosis which is likely related to the stress of vomiting. He is not anemic. His INR was subtherapeutic at 1.2. He had no significant electrolyte abnormalities. At some point during his stay, the patient had appeared generally worse and was now having slurred speech. Stroke scale was performed and the patient was subsequently sent for CT scan of the brain which was concerning for an acute RIGHT sided occipital infarct. In consultation with [facility] tele-stroke, it was agreed that the patient would benefit from TPA administration. The patient received TPA at 1705. The patient was subsequently directed to the ICU for continued monitoring. Upon arrival in the ICU, the patient had multiple episodes of emesis after transferring from the letter to the bed. Per nursing signout, the patient had been vomiting profusely throughout his entire stay in the emergency department. Patient was noted to have pinkish colored vomit in his emesis basin. After vomiting subsided, the patient complains of lightheadedness and vomiting with changes of position of his head as well as with opening his eyes. He denies any current headaches, double vision, facial droop, tinnitus, unilateral weakness/numbness, chest pain, palpitations, shortness of breath, pleuritic pain , hematuria, or dysuria. Patient does complain of some mild abdominal discomfort which he attributes to persistent vomiting. Past Medical/Surgical History Medical Problems: (1) AORTOCORONARY BYPASS (2) ATRIAL FIBRILLATION (3) CALCULUS OF URETER (4) CORON ATHEROSCLER NOS TYPE VESSEL, SITKA OR GRAFT (5) DEPRESSIVE DISORDER NEC (6) ENDOCARDITIS NOS (7) HYPERTENSION NOS (8) PURE HYPERCHOLESTEROLEM Surgical Problems: (1) H/O aortic valve replacement Family History Cancer Heart disease Hypertension Kidney disease or stones Social History Smoking Status: Never Smoker Smokeless Tobacco Use: No Alcohol Use: occasionally Drug Use: none Marital Status: single Housing Status: lives with significant other Occupation Status: employed Allergies Coded Allergies: Itraconazole (Verified Allergy, Unknown, headache, 11/05/13) pt Sertraline (Verified Allergy, Unknown, feels nutty, 11/05/13) pt Home Medications Scheduled Atorvastatin (Lipitor), 80 MG PO QAM Metoprolol Succinate (Toprol Xl), 50 MG PO DAILY Multiple Vitamin (Multivitamin), 1 TAB PO DAILY Warfarin Sodium (Warfarin Sodium), 15 MG PO [id number] Warfarin Sodium (Warfarin Sodium), 10 MG PO 2XWK Current Inpatient Medications Current Inpatient Medications Medications (Trade) Dose Ordered Sig/Jesus Route Start Time Stop Time Status Last Admin Dose Admin Ioversol (Optiray 320) 100 ml UD PRN IV 12/16/17 14:45 12/20/17 14:44 Miscellaneous Information (Pharmacist Discharge Med Rec Consult) 1 ea UD PRN N/A 12/16/17 18:00 01/15/18 17:59 Miscellaneous Information (Icu Protocol For Hyperglycemia) 1 ea PRN PRN N/A 12/16/17 18:00 12/18/17 17:59 Atorvastatin Calcium (Lipitor Tab) 80 mg QAM PO 12/17/17 09:00 01/16/18 08:59 Multivitamins (Multivitamin Tab) 1 tab DAILY PO 12/17/17 09:00 01/16/18 08:59 Metoprolol Succinate (Toprol Xl Tab) 25 mg DAILY PO 12/17/17 09:00 01/16/18 08:59 Pantoprazole Sodium 40 mg/ Syringe 10 ml @ 5 mls/min DAILY IV 12/17/17 09:00 12/20/17 09:01 Acetaminophen 650 mg/Empty Bag 65 ml @ 260 mls/hr Q6H PRN IV 12/16/17 19:30 01/15/18 19:29 Ondansetron HCl 6 mg/Dextrose 53 ml @ 200 mls/hr Q6H PRN IV 12/16/17 19:30 01/15/18 19:29 Metoclopramide HCl (Reglan Inj) 10 mg Q6H IV. 12/16/17 20:00 01/15/18 19:59 Review of Systems A complete 10-point Review of Systems was discussed with the patient, with pertinent positives and negatives listed in the History of Present Illness. All remaining Review of Systems questions can be considered negative unless otherwise specified. Physical Exam Date Time Temp Pulse Resp B/P (MAP) Pulse Ox O2 Delivery O2 Flow Rate FiO2 12/16/17 19:05 76 12 150/87 96 Room Air 12/16/17 18:50 73 18 178/84 94 Room Air 12/16/17 18:35 80 16 153/87 97 Room Air 12/16/17 18:20 74 12 153/80 95 Room Air 12/16/17 18:05 74 16 162/82 94 Room Air 12/16/17 18:00 77 12 154/78 95 Room Air 12/16/17 17:47 80 20 168/87 99 Room Air 12/16/17 17:30 70 12 186/96 94 Room Air 12/16/17 17:16 70 22 179/99 97 Room Air 12/16/17 17:10 72 23 185/92 97 Room Air 12/16/17 17:02 70 14 181/97 98 Room Air 12/16/17 16:40 69 14 151/83 98 Room Air 12/16/17 15:53 74 18 145/77 93 Room Air 12/16/17 14:40 99 Room Air 12/16/17 14:39 69 18 146/74 100 Room Air 12/16/17 14:27 78 12/16/17 14:15 36.7 69 18 138/74 99 Room Air VITAL SIGNS - Vital signs and nursing notes were reviewed. GENERAL - 57-year-old male appearing his stated age who is in no acute distress. Communicates well with provider and answers questions appropriately. Appears drowsy. SKIN - Without rashes. HEAD - NC/AT. EYES - PERRL with EOMI bilaterally. Sclera anicteric. Palpebral conjunctiva pink and moist with no injection noted. No nystagmus. Nausea with ROM of the eyes. EARS - No deformities of external structures noted on gross examination bilaterally. No pain elicited with palpation of the tragus bilaterally. External auditory canals without discharge or otorrhea. Tympanic membranes pearly espinal without retraction or bulging. NOSE - Midline and without cyanosis. No epistaxis or purulent drainage noted. MOUTH/OROPHARYNX - Without perioral cyanosis. Buccal mucosa pink and moist and without leukoplakia. Tongue midline with equal elevation of palate bilaterally. No tonsillar hypertrophy, erythema, or exudates noted. Good dentition noted. No blood noted in the oropharynx. NECK - Neck with FROM. Supple to palpation. No lymphadenopathy noted. No nuchal rigidity. LUNGS - Chest wall symmetric without accessory muscle use, intercostals retractions, or central cyanosis. Normal vesicular breath sounds CTA B/L. No wheezes, rales, or rhonchi appreciated. CARDIAC - RRR with S1/S2. No murmur, rubs, or gallops appreciated. ABDOMEN - Abdominal contour flat without pulsations or visible masses. BS normoactive all four quadrants. No tenderness, palpable masses, hepatosplenomegaly, or ascites noted. EXTREMITIES - No clubbing or peripheral cyanosis. No pretibial edema present. +3 /5 radial and dorsalis pedis pulses palpated throughout. +5/5 strength noted in UE/LE bilaterally. NEUROLOGIC - Cranial nerves II through XII grossly intact. Sensory intact to light touch throughout. Patellar reflexes +2/4. Negative Pronator Drift bilaterally. PSYCH - A&Ox4 and cooperates fully with examiner. Drowsy. Pt is very pleasant and interacts well with examiner. Laboratory Results Last 24 Hours Test 12/16/17 14:15 12/16/17 15:09 12/16/17 15:43 12/16/17 19:46 White Blood Count 12.77 K/uL Red Blood Count 5.07 M/uL Hemoglobin 16.0 g/dL Hematocrit 45.2 % Mean Corpuscular Volume 89.2 fL Mean Corpuscular Hemoglobin 31.6 pg Mean Corpuscular Hemoglobin Concent 35.4 g/dl Platelet Count 199 K/uL Mean Platelet Volume 12.1 fL Neutrophils (%) (Auto) 58.8 % Lymphocytes (%) (Auto) 33.2 % Monocytes (%) (Auto) 7.2 % Eosinophils (%) (Auto) 0.4 % Basophils (%) (Auto) 0.2 % Neutrophils # (Auto) 7.51 K/uL Lymphocytes # (Auto) 4.24 K/uL Monocytes # (Auto) 0.92 K/uL Eosinophils # (Auto) 0.05 K/uL Basophils # (Auto) 0.02 K/uL RDW Standard Deviation 42.5 fL RDW Coefficient of Variation 13.1 % Immature Granulocyte % (Auto) 0.2 % Immature Granulocyte # (Auto) 0.03 K/uL Prothrombin Time 12.7 SECONDS Prothromb Time International Ratio 1.2 Activated Partial Thromboplast Time 24.0 SECONDS Partial Thromboplastin Ratio 0.9 Sodium Level 142 mmol/L Potassium Level 3.5 mmol/L Chloride Level 108 mmol/L Carbon Dioxide Level 22 mmol/L Anion Gap 12.0 mmol/L 17.0 mmol/L Blood Urea Nitrogen 22 mg/dl Creatinine 1.03 mg/dl Est Creatinine Clear Calc Drug Dose 94.2 ml/min Estimated GFR () 93.0 Estimated GFR (Non- 80.3 BUN/Creatinine Ratio 21.6 Random Glucose 148 mg/dl Calcium Level 9.5 mg/dl Magnesium Level 2.4 mg/dl Total Bilirubin 1.0 mg/dl Direct Bilirubin 0.2 mg/dl Aspartate Amino Transf (AST/SGOT) 23 U/L Alanine Aminotransferase (ALT/SGPT) 28 U/L Alkaline Phosphatase 81 U/L Total Creatine Kinase 247 U/L Creatine Kinase MB 2.6 ng/ml Creatine Kinase MB Ratio 1.1 Troponin I < 0.015 ng/ml Total Protein 8.1 gm/dl Albumin 4.6 gm/dl Lipase 129 U/L Thyroid Stimulating Hormone (TSH) 1.990 uIu/ml Bedside Hemoglobin 14.3 g/dl Bedside Hematocrit 42 % Bedside Sodium 144 mEq/L Bedside Potassium 3.6 mEq/L Bedside Chloride 108 mEq/L Bedside Total CO2 23 mEq/l Bedside Blood Urea Nitrogen 24 mg/dl Bedside Creatinine 0.8 mg/dl Bedside Glucose (other) 153 mg/dl Bedside Ionized Calcium (Karyn) 1.09 mmol/l Urine Color YELLOW Urine Appearance CLEAR Urine pH 7.5 Urine Specific Miles 1.042 Urine Protein NEG Urine Glucose (UA) NEG Urine Ketones 1+ Urine Occult Blood NEG Urine Nitrite NEG Urine Bilirubin NEG Urine Urobilinogen NEG Urine Leukocyte Esterase TRACE Urine WBC (Auto) 1-5 /hpf Urine RBC (Auto) 0-4 /hpf Urine Hyaline Casts (Auto) 1-5 /lpf Urine Epithelial Cells (Auto) 5-10 /lpf Urine Bacteria (Auto) NEG Diagnostic Results Radiological imaging and reports were reviewed by myself. Radiologist's Interpretation as follows: CHEST ONE VIEW PORTABLE HISTORY: 57 years-old Male EVALUATE ALTERED MENTAL STATUS/WEAKNESS acute weakness with altered mental status COMPARISON: Chest radiograph 07/08/2012 TECHNIQUE: Portable AP view of the chest FINDINGS: Cardiac silhouette is enlarged, increased in size from comparison. Prior median sternotomy with cardiac valvular prosthesis. Surgical clips project over the left heart border. Prominence of the mediastinum. No pneumothorax, pleural effusion, focal airspace consolidation or overt pulmonary edema. The bones of the chest appear grossly intact. IMPRESSION: Cardiomegaly without acute process. HEAD WITHOUT CONTRAST (CT) CLINICAL HISTORY: 57 years-old Male with vomiting, letargic. Acute vomiting with dizziness and weakness TECHNIQUE: Multiple axial CT images of the head were obtained without contrast. A dose lowering technique was utilized adhering to the principles of ALARA. CT DOSE: 614.27 mGy.cm COMPARISON: None. FINDINGS: No acute intracranial hemorrhage, midline shift, intracranial mass, hydrocephalus, territorial ischemia or abnormal extra-axial collection. 2.1 x 1.3 cm area of low-attenuation involving the peripheral aspect of the mid right cerebellar hemisphere suggests encephalomalacia from remote infarction. There is an area of ill-defined low-attenuation involving the right occipital lobe on image 13 series 2 with possible blurring of the espinal-white interface within this distribution. Cerebral vascular calcifications are noted. The calvarium is intact. The paranasal sinuses, mastoid air cells, and middle ear cavities are clear. IMPRESSION: 1. No acute intracranial hemorrhage, midline shift or territorial infarct. 2. Ill-defined area of low-attenuation involving the right occipital lobe may reflect an area of developing acute ischemic infarction within the appropriate clinical setting or alternatively may reflect sulcal averaging with adjacent encephalomalacia. These findings could be correlated with MRI of the brain if clinically indicated. 3. Encephalomalacia of the right cerebellar hemisphere from remote infarct. ABDOMEN AND PELVIS CT WITH IV CONTRAST CT DOSE: 509.26 mGy.cm HISTORY: Acute vomiting vomiting TECHNIQUE: Multiaxial CT images of the abdomen and pelvis were performed following the use of intravenous contrast. A dose lowering technique was utilized adhering to the principles of ALARA. COMPARISON STUDY: CT abdomen and pelvis 03/31/2015. FINDINGS: Bibasilar groundglass densities suggest atelectasis. No pneumatosis or pneumoperitoneum identified. Imaged inferior cardiac chambers are mildly enlarged with coronary arterial calcifications noted. Gallbladder, liver, spleen, pancreas and adrenal glands are unremarkable. 3 mm nonobstructing calculus of the interpolar right kidney with nonobstructing calculi of the inferior pole left kidney also noted measuring up to 3 mm. No ureteral calculi or obstructive uropathy identified. The ureters appear unremarkable. Prostamegaly. Bladder is partially decompressed. Moderate mixed plaquing of the aorta without aneurysm. IVC appears unremarkable. No pathologically enlarged lymph nodes identified. Small sliding-type hiatal hernia. No bowel obstruction. Moderate stool volume about the sigmoid colon and rectum with stool ball within the rectal vault. Colonic diverticulosis without definite CT evidence of acute diverticulitis. Mild wall thickening about the mid sigmoid colon suggests hypertrophy from chronic diverticular disease. The terminal ileum and appendix appear unremarkable. No ascites or mesenteric inflammatory changes. The soft tissues are within normal limits. Degenerative changes of the hips and spine are noted. IMPRESSION: 1. Probable mild constipation without bowel obstruction or focal bowel wall thickening. 2. Colonic diverticulosis without diverticulitis. 3. Bilateral nephrolithiasis without ureteral calculi or obstructive uropathy. 4. Prostamegaly. 5. Small sliding-type hiatal hernia. Assessment & Plan (1) Received intravenous tissue plasminogen activator (tPA) in emergency department (2) CVA (cerebral vascular accident) (3) Intractable vomiting (4) ATRIAL FIBRILLATION (5) CORON ATHEROSCLER NOS TYPE VESSEL, SITKA OR GRAFT (6) HYPERTENSION NOS (7) PURE HYPERCHOLESTEROLEM (8) AORTOCORONARY BYPASS Reason Critically Ill: 57-year-old male with acute onset of slurred speech with focal findings appreciated in the emergency department and associated RIGHT occipital CVA noted on CT. Patient underwent administration of of TPA. Currently requiring close hemodynamic monitoring, multiple neurological checks, and adherence to strict protocol status post TPA administration. Neuro - * CAM ICU: NEGATIVE * CVA s/p TPA administration: * CT Head w/o hemorrhage. Concerns for acute ischemia in the RIGHT occipital lobe. * Location could explain the patient's ongoing vertiginous-like symptoms. * MRI/MRA ordered per primary service. * Strict adherence to post-TPA guidelines. * Neuro checks per protocol. * CT for any acute changes. * AM Echo/Carotid US * Appreciate Neuro consultation. Cardiac - * HTN/CAD/A-fib/HLD: * Continue with home Rx as tolerated. * Monitor on telemetry. * EKG for any c/o CP. * Will allow for permissive HTN in the setting of ischemic event. * Patient takes Metoprolol daily. Will continue with dosing unless something were to profoundly change. * AM Echo Ordered * EKG: SR w/ 1' AV @ 61bpm, no acute ST/T-wave changes. QTc 527ms,. * QTc Prolongation - will continue to monitor. * Avoid any further QTc Prolonging medications. Respiratory - * No h/o Pulmonary Disease. * Continuous Pulse Ox * NC O2 PRN GI - * Intractable Nausea and Vomiting: * Received Zofran/Phenergan in the ED. * Persistent N/V upon arrival in the ICU. Received Zofran. * Contents of emesis bag sent for Gastroccult testing. * Positive Gastroccult noted. * Likely small mucosal tear 2/2 retching. Will monitor for changes in consistency in the setting of recent TPA administration. * Will place the patient on Protonix BID dosing for now. * Will add Reglan PRN N/V in the setting of prolonged QTc. * CT of the abdomen/pelvis w/o acute findings. N/V likely more CVA related. * Will make the patient NPO except meds at this point. RENAL/LYTES - * No acute electrolyte disturbances. * Will monitor. * Will add maintenance fluids while NPO. Anticipate this can be d/c once able to eat/drink. * IVF: NSS@80mL/hr - * Prostatomegaly noted on CT. * No acute issues at this time. * Voiding w/o issue at this point. * Would avoid catheterization at this point s/p TPA. ENDO - * No h/o DM or Thyroid Dz * BSGs per protocol w/ ISS/gtt as needed. HEME - * Status post TPA administration: * Monitor closely for any s/s of bleeding. * Subtherapeutic INR on Coumadin for A-fib. * Recheck in the AM. * These numbers can lag based on daily dosing regime. ID - * No c/o infection at this time. * Monitor fever curve. LINES/IV ACCESS - * PIVs x2 * Avoid blood draws for the first 24 hours s/p TPA. DVT PROPHYLAXIS - * Hold on chemoprophylaxis s/p TPA administration. * SCDs. I have personally spent 45 minutes of critical care time in the direct management of this patient. This is a life/limb threatening event. This includes time spent evaluating patient, direct bedside care, chart review, placing orders, interpretation of diagnostic studies, discussion with consultants, patient, and family members, as well as other required patient management activities. This time is exclusive of all separately billable procedures, and teaching time and separate from and in addition to any other critical care service time. Thank you for allowing us to participate in the care of this patient. Please refer to my attending physician's documentation for any further recommendations. Addendum At 2340, was approached by nursing staff that patient was now complaining of a RIGHT-sided posterior headache. On evaluation, the patient clinically appears well when compared to earlier assessment. He has no focal neurological findings noted on brief neuro assessment. Patient complaining of 4/10 "pressure" to the RIGHT sided posterior occiput. He localized the pain this area. At this point, a repeat CT of the head without contrast was ordered to evaluate for possible hemorrhagic conversion. Did speak directly to CT. Patient sent immediately to CT for evaluation. Patient provided with IV acetaminophen upon return from CT. Radiological imaging and reports were reviewed by myself. Radiologist's Interpretation per [facility] as follows: CT HEAD: Impression: No intracranial hemorrhage. Right cerebellar hemisphere infarction without evidence of hemorrhagic transformation. Ventricles are normal in size and configuration. No mass lesion or mass effect. Skull base and calvarium appear normal. I have personally spent 30 minutes of critical care time in the direct management of this patient. This is a life/limb threatening event. This includes time spent evaluating patient, direct bedside care, chart review, placing orders, interpretation of diagnostic studies, discussion with consultants, patient, and family members, as well as other required patient management activities. This time is exclusive of all separately billable procedures, and teaching time and separate from and in addition to any other critical care service time. Attending addendum, The patient was seen, examined independently, agree with assessment and plan of my colleague Joshua Figueroa. The patient was admitted to the hospital with right cerebellar infarct which resulted in persistent nystagmus, vertigo, nausea. He did not have any motor or sensory deficit in the periphery. The patient had the TPA started at 5 PM on 12/16/2017 to complete first day of post TPA treatment at 5 PM 12/17/2017. The patient denies any headache at the moment. His blood pressure has been well maintained. No neurologic progression deficit noted. His physical exam revealed minimal nystagmus that was noted, the patient has photophobia, his cranial nerves appeared intact. Motor sensory is 5/5 bilaterally and he has no sensory deficit. Babinski is bilateral downgoing toes. The rest of his exam showed S1-S2 with metallic S2. Distant breath sounds bilaterally, abdomen is benign, no edema in the periphery. Imaging has been reviewed with the team and personally. Appreciate the assessment and plan of Dr. Lowry from neurology. The patient will continue to be monitored with NIH score in the ICU. After completion of 24 hours and due to the presence of metallic aortic valve, we will start the heparin without a bolus. I discussed the issue with Dr. Lowry and appreciate his input, he is in agreement. Cardiology consult also was obtained. It was noted that the patient was subtherapeutic on INR as he was supposed to be on Coumadin. It raises a question of compliance. We have added Compazine as well as Reglan for nausea and comfort only. The patient nystagmus appear to be settled as well. His medications has been reviewed and reconciled. Case discussed with the staff on rounds and details, critical care time spent with the patient was 60 minutes. Problem Qualifiers (1) CVA (cerebral vascular accident): CVA mechanism: unspecified Qualified Codes: I63.9 - Cerebral infarction, unspecified (2) Intractable vomiting: Vomiting type: unspecified Nausea presence: with nausea Qualified Codes: R11.2 - Nausea with vomiting, unspecified
[2017-12-16] MEDS ORDERED: METOCLOPRAMIDE HCL INJ 5 MG/ML 2 ML VIAL IV. SCH (20:00)
[2017-12-16] MEDS ORDERED: METOCLOPRAMIDE HCL INJ 5 MG/ML 2 ML VIAL IV. PRN (21:00)
[2017-12-16] MEDS ORDERED: GADAVIST IV PRN (22:10)
[2017-12-16] MEDS ORDERED: WARF-246 PO ×2 (22:27)
[2017-12-16] MEDS: PANTOprazole INJ 40 MG in SYRINGE 0 ML IV SCH (22:37)
[2017-12-16] MEDS: SODIUM CHLORIDE 0.9% 1000ML 1,000 ML IV SCH (22:45)
--- NOTE | 2017-12-16 22:52 | DIAGNOSTIC IMAGING REPORT ---
MRI OF THE BRAIN COMBO CLINICAL HISTORY: Strokelike symptoms. COMPARISON STUDY: CT of the brain dated 12/16/2017. TECHNIQUE: MRI of the brain was performed utilizing various T1 and T2-weighted sequences in the axial, sagittal, and coronal planes. Contrast-enhanced sequences were acquired following the administration of 10 cc of Gadavist. FINDINGS: Brain parenchyma: There is a large region of restricted diffusion identified within the right cerebellar hemisphere consistent with acute to subacute ischemia. No additional foci of acute ischemia are identified. There is no hemorrhage or mass effect. A chronic lacunar infarct is also identified in the right cerebellar hemisphere. A small focus of right occipital encephalomalacia is consistent with a remote infarct. There is minimal periventricular microangiopathic disease. No enhancing mass lesion is identified on the postcontrast images. Carmona-white matter differentiation is preserved. No extra-axial fluid collection is seen. The cerebellar tonsils are normal in configuration. Ventricles, sulci, and cisterns: Normal in configuration. Pituitary and sella: Unremarkable. Intracranial vasculature: Normal flow voids are maintained at the skull base. Orbits: The bony orbits are grossly intact. Orbital contents are normal in appearance. Sinuses and mastoids: Clear. Calvarium: Unremarkable. Cervical cord: Partially visualized cervical spinal cord is normal in morphology and signal intensity. IMPRESSION: 1. There is a large acute to subacute infarct involving the right cerebellar hemisphere. 2. No additional foci of acute ischemia are identified. There is no hemorrhage or mass effect. 3. Additional chronic infarcts are seen in the right cerebellar hemisphere and the right occipital lobe. Electronically signed by: Neo Thomas M.D. 12/16/2017 10:50 PM Dictated Date/Time: 12/16/2017 10:45 PM
--- NOTE | 2017-12-16 22:54 | DIAGNOSTIC IMAGING REPORT ---
MR ANGIOGRAM OF THE BRAIN CLINICAL HISTORY: Stroke. COMPARISON STUDY: MRI of the brain performed concurrently on 12/16/2017. TECHNIQUE: 3-D [id number] MR angiography of the intracranial circulation is performed. 3-D tumble views are created and assessed. IV contrast was not administered for this examination. FINDINGS: There is a left posterior communicating artery. The internal carotid arteries are widely patent bilaterally, as are the anterior and middle cerebral arteries. The vertebrobasilar system and posterior cerebral arteries are widely patent. The vertebral arteries are codominant. There is no aneurysm, high-grade stenosis, or focal vessel cutoff seen throughout the intracranial circulation. IMPRESSION: Unremarkable MR angiogram of the brain. Electronically signed by: Neo Thomas M.D. 12/16/2017 10:53 PM Dictated Date/Time: 12/16/2017 10:51 PM
[2017-12-17] VITALS (25 sets, daily range): BP systolic 111–164; BP diastolic 49–93; PULSE 77–97; TEMP 36.1–37.4; O2SAT 93–97
[2017-12-17] MEDS: ACETAMINOPHEN IV 650 MG in EMPTY BAG 0 ML IV PRN (00:02)
[2017-12-17] MEDS ORDERED: ONDANSETRON INJ 2 MG/ML 2 ML VIAL IV. PRN (02:30)
[2017-12-17 05:04] LABS: INR 1.3 (0.9-1.1); PTT PATIENT 26.9 SECONDS (21.0-31.0)
[2017-12-17 05:26] LABS: BASO ABS # 0.01 K/uL (0-0.2); HEMATOCRIT 42.5 % (42-52); HEMOGLOBIN 14.9 g/dL (14.0-18.0); IG# 0.07 K/uL (0.00-0.02); LYMPH % 3.1 %; LYMPH ABS # 0.64 K/uL (1.2-3.4); MEAN CELL VOLUME 89.5 fL (80-100); MEAN CORPUSCULAR HEMOGLOBIN 31.4 pg (25-34); MEAN CORPUSCULAR HGB CONC 35.1 g/dl (32-36); MEAN PLATELET VOLUME 12.1 fL (7.4-10.4); MONO % 3.8 %; MONO ABS # 0.78 K/uL (0.11-0.59); NEUT % 92.8 %; NEUT ABS # 19.22 K/uL (1.4-6.5); PLATELET COUNT 168 K/uL (130-400); RED CELL DISTRIBUTION WIDTH CV 13.1 % (11.5-14.5); RED CELL DISTRIBUTION WIDTH SD 43.2 fL (36.4-46.3); WHITE BLOOD COUNT 20.72 K/uL (4.8-10.8)
[2017-12-17 05:28] LABS: ALBUMIN 4.1 gm/dl (3.4-5.0); CALCIUM 8.2 mg/dl (8.5-10.1); CREATININE 0.75 mg/dl (0.60-1.40); PHOSPHORUS 3.1 mg/dl (2.5-4.9); POTASSIUM 3.3 mmol/L (3.5-5.1); TOTAL PROTEIN 7.4 gm/dl (6.4-8.2)
--- NOTE | 2017-12-17 06:22 | DIAGNOSTIC IMAGING REPORT ---
HEAD WITHOUT CONTRAST (CT) CT DOSE: 614.27 mGy.cm HISTORY: Infarct. Stroke. RIGHT posterior SERRANO w/ new CVA s/p TPA @1705 TECHNIQUE: Multiaxial CT images of the head were performed without the use of intravenous contrast. A dose lowering technique was utilized adhering to the principles of ALARA. Comparison: 12/16/2017 Findings: The paranasal sinuses and mastoid air cells are clear. Evidence for a developing infarct involving the bulk of the mid to superior right cerebellar hemisphere. Very slight midline shift to the left. No evidence for acute intracranial hemorrhage. The right occipital infarct again appears to be suboptimally identified. Impression: 1. Progression and/or interval development of a relatively large geographic right cerebellar infarct. 2. Small pre-existing right occipital infarct. 3. No acute intracranial hemorrhage. The above report was generated using voice recognition software. It may contain grammatical, syntax or spelling errors. Electronically signed by: Enrique Bhandari M.D. 12/17/2017 6:21 AM Dictated Date/Time: 12/17/2017 6:13 AM
[2017-12-17 06:27] LABS: HEMOGLOBIN A1C 5.4 % (4.5-5.6)
--- NOTE | 2017-12-17 06:45 | DIAGNOSTIC IMAGING REPORT ---
CAROTID DOPPLER NECK ART HISTORY: Mental status change Stroke COMPARISON: None. TECHNIQUE: Real-time, grayscale, and color Doppler sonography of the carotid arteries was performed. Imaging reviewed in the transverse and longitudinal planes. All measurements were calculated based on NASCET criteria. FINDINGS: Antegrade flow is seen in the bilateral vertebral arteries. The brachial pressures are hemodynamically similar. Mild plaque formation bilaterally The peak systolic velocity within the right ICA is 46. The right systolic ratio is 0.7. The peak systolic velocity within the left ICA is 54. The left systolic ratio is 0.7. IMPRESSION: No hemodynamically significant stenosis seen within the carotid arteries. Minimal plaque formation bilaterally The above report was generated using voice recognition software. It may contain grammatical, syntax or spelling errors. Electronically signed by: Enrique Bhandari M.D. 12/17/2017 6:44 AM Dictated Date/Time: 12/17/2017 6:39 AM
--- NOTE | 2017-12-17 07:13 | DIAGNOSTIC IMAGING REPORT ---
CHEST ONE VIEW PORTABLE HISTORY: 57 years-old Male Stroke acute strokelike symptoms COMPARISON: Chest radiograph 12/16/2017 TECHNIQUE: Portable AP view of the chest FINDINGS: Cardiac silhouette is enlarged. Prior median sternotomy. Surgical clips project of the left heart border signifying probable post CABG changes. No pneumothorax, pleural effusion, focal airspace consolidation or overt pulmonary edema. The bones of the chest appear grossly intact. Degenerative changes of the shoulders and spine are noted. IMPRESSION: No acute process. The above report was generated using voice recognition software. It may contain grammatical, syntax or spelling errors. Electronically signed by: Juan Bhatia M.D. 12/17/2017 7:12 AM Dictated Date/Time: 12/17/2017 7:11 AM
[2017-12-17] MEDS: MULTIVITAMIN TAB PO SCH (09:00)
[2017-12-17] MEDS ORDERED: PANTOprazole INJ 40 MG in SYRINGE 0 ML IV SCH (09:00)
[2017-12-17] MEDS ORDERED: PROCHLORPERAZINE INJ 5 MG in SYRINGE 4 ML IV PRN ×2 (09:00→10:45)
[2017-12-17] MEDS ORDERED: METOPROLOL SUCC 25MG EXT REL TAB PO SCH (09:00)
[2017-12-17] MEDS ORDERED: METOPROLOL SUCC 50MG EXT REL TAB PO SCH (09:00)
--- NOTE | 2017-12-17 09:06 | ECHOCARDIOGRAM REPORT ---
*NOTICE TO RECEIVING CONSTITUTION PARTY AGENCY This information is strictly Confidential and protected under [place] law. [place] law prohibits you from making any further disclosure of this information unless further disclosure is expressly permitted by the written consent of the person to whom it pertains or is authorized by law. A general authorization for the release of medical or other information is not sufficient for this purpose. Hospital accepts no responsibility if the information is made available to any other person, INCLUDING THE PATIENT. Interpretation Summary * Name: JENNA HERMAN Study Date: 12/17/2017 06:21 AM BP: 137/74 mmHg * Patient Location: .[facility]\S\E108\S\1 HR: 95 * : 1960 (M/d/yyyy) Gender: Male Height: 70 in * Age: 57 yrs Ethnicity: CA Weight: 222 lb * Ordering Physician: Angela Pinzon * Referring Physician: Self, Referred * Performed By: Krissy Brown RDCS * * Reason For Study: Cerebral Ischemia/Embolus * BSA: 2.2 m2 * -- Conclusions -- * 1. Mildly dilated left ventricle with moderately to severely reduced systolic function. Estimated EF 30-35%. Akinesis of the distal septum, distal anterior wall, distal inferior wall, and apical segments. There is hypokinesis to akinesis involving the basal inferior and mid inferolateral wall segments. Otherwise, global hypokinesis. Mild concentric left ventricular hypertrophy. * 2. The left atrium is mildly dilated. * 3. Mechanical aortic valve with acceptable transvalvular gradient/velocity. * 4. There is mild mitral regurgitation. * 5. Top-normal right ventricular systolic pressure; 36mmHg. * 6. Compared to prior study on 09/07/2007, LV systolic function is now reduced with wall motion abnormalities as described. Mechanical aortic valve is now present. Procedure Details * A complete two-dimensional transthoracic echocardiogram was performed (2D, M-mode, Doppler and color flow Doppler). * A saline contrast injection was performed to assess for cardiac shunting. * The injection was performed through an intravenous line in the left arm. * The attending nurse who injected the saline contrast was Fabiana Blackwood RN. * A total of 20 cc of agitated saline was given. * A contrast injection of Definity was performed to improve assessment of LV function. * A contrast injection of Definity was performed to improve assessment for apical thrombus. * Contrast was injected into an intravenous site in the left arm. * One vial of Definity ultrasound contrast was diluted in normal saline to a total volume of 10 ml. A total of '2' ml of solution was administered during imaging. * Lot # [id number] of Definity utilized for procedure. * Expiration date 1May19. * The attending nurse who injected the contrast agent was Fabiana Blackwood RN. Left Ventricle * Mildly dilated left ventricle with moderately to severely reduced systolic function. Estimated EF 30-35%. Akinesis of the distal septum, distal anterior wall, distal inferior wall, and apical segments. There is hypokinesis to akinesis involving the basal inferior and mid inferolateral wall segments. Otherwise, global hypokinesis. Mild concentric left ventricular hypertrophy. Right Ventricle * The right ventricle is normal in size and function. * The right ventricular systolic function is normal as assessed by tricuspid annular plane systolic excursion (TAPSE) (normal >1.5 cm). Atria * The left atrium is mildly dilated. * Right atrial size is normal. * There is no obvious right to left inter atrial shunt following agitated saline injection, however image quality was suboptimal. Mitral Valve * There is mild mitral annular calcification. * There is no mitral valve stenosis. * Elevated transvalvular gradient however valve leaflets appear to have appropriate excursion. * There is mild mitral regurgitation. Tricuspid Valve * The tricuspid valve is not well visualized, but is grossly normal. * There is no tricuspid stenosis. * There is trace tricuspid regurgitation. Aortic Valve * Mechanical aortic valve with acceptable transvalvular gradient/velocity. * There is no significant aortic regurgitation. Pulmonic Valve * The pulmonary valve is inadequately visualized, but the Doppler data is adequate for interpretation. * There is no pulmonic valvular stenosis. * There is no significant pulmonary regurgitation. Great Vessels * Aortic arch of normal dimension. * The aortic root is normal size. Pericardium/Pleural * There is no pericardial effusion. Great Vessels * Mildly dilated IVC with reduced inspiratory collapse. MMode 2D Measurements and Calculations IVSd 1.2 cm IVSs 1.2 cm LVIDd 5.5 cm LVIDs 4.8 cm LVPWd 1.2 cm LVPWs 1.8 cm IVS/LVPW 0.98 FS 13.5 % EDV(Teich) 149.5 ml ESV(Teich) 106.8 ml EF(Teich) 28.6 % EDV(cubed) 169.4 ml ESV(cubed) 109.6 ml EF(cubed) 35.3 % % IVS thick 5.6 % % LVPW thick 51.7 % LV mass(C)d 271.0 grams LV mass(C)dI 124.2 grams/m\S\2 LV mass(C)s 311.4 grams LV mass(C)sI 142.7 grams/m\S\2 SV(Teich) 42.7 ml SI(Teich) 19.6 ml/m\S\2 SV(cubed) 59.8 ml SI(cubed) 27.4 ml/m\S\2 EPSS 2.8 cm Ao root diam 4.0 cm Ao root area 12.5 cm\S\2 ACS 2.1 cm LA dimension 3.3 cm LA/Ao 0.83 LVAd ap4 54.3 cm\S\2 LVLd ap4 10.8 cm EDV(MOD-sp4) 225.6 ml EDV(sp4-el) 231.8 ml LVAs ap4 40.3 cm\S\2 LVLs ap4 9.9 cm ESV(MOD-sp4) 136.9 ml ESV(sp4-el) 139.1 ml EF(MOD-sp4) 39.3 % EF(sp4-el) 40.0 % LVAd ap2 53.2 cm\S\2 LVLd ap2 10.9 cm EDV(MOD-sp2) 220.7 ml EDV(sp2-el) 221.6 ml LVAs ap2 43.8 cm\S\2 LVLs ap2 10.3 cm ESV(MOD-sp2) 154.1 ml ESV(sp2-el) 157.6 ml EF(MOD-sp2) 30.2 % EF(sp2-el) 28.9 % LVLd %diff 3.1 % EDV(MOD-bp) 261.7 ml LVLs %diff 3.9 % ESV(MOD-bp) 147.9 ml EF(MOD-bp) 43.5 % SV(MOD-sp4) 88.7 ml SI(MOD-sp4) 40.6 ml/m\S\2 SV(MOD-sp2) 66.6 ml SI(MOD-sp2) 30.5 ml/m\S\2 SV(MOD-bp) 113.8 ml SI(MOD-bp) 52.1 ml/m\S\2 SV(sp4-el) 92.7 ml SI(sp4-el) 42.5 ml/m\S\2 SV(sp2-el) 64.0 ml SI(sp2-el) 29.3 ml/m\S\2 Doppler Measurements and Calculations MV E max karena 154.3 cm/sec MV V2 max 207.1 cm/sec MV max PG 17.2 mmHg MV V2 mean 118.9 cm/sec MV mean PG 6.7 mmHg MV V2 VTI 36.9 cm MV P1/2t max karena 206.2 cm/sec MV P1/2t 77.1 msec MVA(P1/2t) 2.9 cm\S\2 MV dec slope 783.8 cm/sec\S\2 MV dec time 0.18 sec Ao V2 max 255.0 cm/sec Ao max PG 26.2 mmHg Ao max PG (full) 18.0 mmHg Ao V2 mean 171.2 cm/sec Ao mean PG 14.0 mmHg Ao mean PG (full) 10.5 mmHg Ao V2 VTI 42.8 cm LV V1 max PG 8.2 mmHg LV V1 mean PG 3.6 mmHg LV V1 max 143.5 cm/sec LV V1 mean 84.5 cm/sec LV V1 VTI 24.6 cm SV(Ao) 534.3 ml SI(Ao) 244.9 ml/m\S\2 PA V2 max 111.7 cm/sec PA max PG 5.0 mmHg TR max karena 226.9 cm/sec RVSP(TR) 35.6 mmHg RAP systole 15.0 mmHg
[2017-12-17] MEDS: ATORVASTATIN 40 MG TAB PO SCH (09:34)
--- NOTE | 2017-12-17 10:09 | Neurology Consultation ---
Neurology Consultation Date of Consultation: Dec 17, 2017. Attending Physician: Emmanuel Alicia M.D. Primary Care Physician: No Doctor, Assigned Reason for Consultation: Patient is a 57-year-old was asked to see the request of FABIÁN Moise, for neurologic consultation regarding stroke History of Present Illness Source: patient, caregiver, clinic records, hospital records Patient has a history of coronary artery disease and severe aortic stenosis resulting in coronary artery bypass graft procedure and aortic valve replacement ([place] mechanical valve) in 2007. He was known to have atrial fibrillation at that time as well. Patient tells me he goes "in and out" of atrial fibrillation since. He has been on Coumadin ever since and has had a fluctuating INR over time because of compliance problems. About 3 years ago, the patient had an episode of blurry vision, nausea, vomiting , and balance problems and thinks he may have had a stroke then, but there was no testing done at that time a head no stroke was identified or proven. He has a history of hypertension and dyslipidemia but no diabetes. In November of this year his INR was 2.[address] Valles for follow-up who felt he was stable. 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 On the morning of December 16, he was feeling well and went to work as usual. He was warm that morning and was not apparently drinking much in the way of liquids. He had lunch around noon time at [facility]. Around 130 in the afternoon, about 20-30 minutes after he had finished lunch, he had the sudden onset of nausea and vomiting, abdominal pain, diaphoresis, speech problems, balance issues, and a swimming feeling in his head. He arrived to the emergency room December 16 at 1415 hours with a temperature of 36.7, pulse is 69, respiratory rate 18, blood pressure 130/74, and O2 saturation of 99 percent. In the ER he was described as listless and slow to respond with some pressured speech and diaphoresis. They did not notice any focal findings initially. After being in the emergency room for some time, it was noted that the patient was having slurred speech and right upper extremity control problems with some orientation issues. A stroke alert was called at 1546 hours and NIH stroke scale was 5 INR was 1.2 (the patient admits to missing some doses). CT scan of the head showed a probable new right cerebellar stroke. There was an old right cerebellar stroke as well. There was no hemorrhage. Chest x-ray showed cardiomegaly CT of the abdomen and pelvis showed diverticulosis, nephrolithiasis, and prostate medically. There was a small hiatal hernia. MRI of the brain showed a large right cerebellar stroke. There was old right occipital/cerebellar stroke as well. MR angiography of the head was unremarkable. Carotid ultrasound was unremarkable. White count was 20 this morning Glucose was in the 140-150 range and hemoglobin A1c was 5.4. Cholesterol this morning was 122. Chem profile was otherwise unremarkable except for a mildly low calcium and potassium. Echocardiogram is pending. Patient has no new events overnight. A repeat CT scan last night showed no hemorrhage. This morning, the patient has some nausea but it is less than yesterday. He still has a swimming feeling in his head particular when he opens his eyes and feels better with his head still and eyes closed. He is a little bit sleepy and has a few hiccups. His right arm feels clumsy. 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 He only rarely has a drink of alcohol. 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 Smoking Status: Never smoker Smokeless Tobacco Use: No Alcohol Use: socially Drug Use: none Marital Status: single Housing Status: lives with significant other Occupation Status: employed Allergies Coded Allergies: Itraconazole (Verified Allergy, Unknown, headache, 11/05/13) pt Sertraline (Verified Allergy, Unknown, feels nutty, 11/05/13) pt Current Inpatient Medications Current Inpatient Medications Medications (Trade) Dose Ordered Sig/Jesus Route Start Time Stop Time Status Last Admin Dose Admin Ioversol (Optiray 320) 100 ml UD PRN IV 12/16/17 14:45 12/20/17 14:44 Miscellaneous Information (Pharmacist Discharge Med Rec Consult) 1 ea UD PRN N/A 12/16/17 18:00 01/15/18 17:59 Miscellaneous Information (Icu Protocol For Hyperglycemia) 1 ea PRN PRN N/A 12/16/17 18:00 12/18/17 17:59 Atorvastatin Calcium (Lipitor Tab) 80 mg QAM PO 12/17/17 09:00 01/16/18 08:59 Multivitamins (Multivitamin Tab) 1 tab DAILY PO 12/17/17 09:00 01/16/18 08:59 Metoprolol Succinate (Toprol Xl Tab) 25 mg DAILY PO 12/17/17 09:00 01/16/18 08:59 Acetaminophen 650 mg/Empty Bag 65 ml @ 260 mls/hr Q6H PRN IV 12/16/17 19:30 01/15/18 19:29 12/17/17 00:02 260 MLS/HR Pantoprazole Sodium 40 mg/ Syringe 10 ml @ 5 mls/min DAILY@,21 IV 12/16/17 21:00 01/15/18 20:59 12/16/17 22:37 5 MLS/MIN Sodium Chloride 1,000 ml @ 80 mls/hr [id number] IV 12/16/17 22:45 01/15/18 22:44 12/16/17 22:45 80 MLS/HR Gadobutrol (Gadavist) 10 mmol UD PRN IV 12/16/17 22:10 12/20/17 22:09 Ondansetron HCl (Zofran Inj) 4 mg Q6H PRN IV. 12/17/17 02:30 01/16/18 02:29 Metoclopramide HCl (Reglan Tab) 10 mg ACHS PO 12/17/17 11:00 01/16/18 10:59 UNV Prochlorperazine Edisylate 5 mg/ Syringe 5 ml @ 5 mls/min Q6 PRN IV 12/17/17 09:00 01/16/18 08:59 UNV Aspirin (Aspirin Chew) 81 mg DAILY PO 12/17/17 18:00 01/16/18 17:59 UNV Review of Systems Constitutional: + weakness, + fatigue Eyes: + worsening of vision, No diplopia ENT: No hearing loss, No tinnitus, No trouble swallowing Respiratory: No cough, No shortness of breath Cardiovascular: + palpitations, No chest pain Abdomen: + nausea, + vomiting, No pain Musculoskeletal: No joint pain, No muscle pain Genitourinary - Male: No dysuria, No urinary incontinence Neurologic: + weakness, + vertigo, + balance problems, No memory loss, No numbness/tingling Psychiatric: No depression symptoms, No anxiety Endocrine: + fatigue Hematologic / Lymphatic: No abnormal bleeding/bruising Integumentary: No rash Allergic / Immunologic: No hives Physical Exam Vital Signs (Past 24 Hrs): Date Time Temp Pulse Resp B/P (MAP) Pulse Ox O2 Delivery O2 Flow Rate FiO2 12/17/17 08:00 36.6 90 24 148/82 (104) 95 Room Air 12/17/17 07:00 36.8 91 23 143/76 (98) 94 Room Air 12/17/17 06:00 36.4 91 26 138/77 (97) 95 Room Air 12/17/17 05:00 36.5 95 21 137/74 (95) 95 Room Air 12/17/17 04:00 36.7 88 18 146/80 (102) 95 Room Air 12/17/17 03:00 36.5 86 14 142/87 (105) 95 Room Air 12/17/17 02:00 36.1 92 16 164/87 (112) 95 Room Air 12/17/17 01:00 36.4 96 15 155/93 (113) 96 Room Air 12/17/17 00:30 36.4 90 18 144/80 (101) 95 Room Air 12/17/17 00:01 Room Air 12/17/17 00:00 36.1 93 15 153/76 (101) 93 Room Air 12/16/17 23:30 36.3 90 17 134/94 (107) 98 Room Air 12/16/17 23:00 36.5 87 23 141/98 (112) 96 Room Air 12/16/17 22:56 Room Air 12/16/17 22:30 36.8 89 17 150/80 (103) 93 Room Air 12/16/17 22:00 83 135/89 (104) 16 Room Air 12/16/17 21:30 86 16 161/91 (114) 97 Room Air 12/16/17 21:00 36.5 85 14 145/85 (105) 97 Room Air 12/16/17 20:30 36.6 82 21 131/79 (96) 98 Room Air 12/16/17 20:30 36.6 82 21 131/79 (96) 98 Room Air 12/16/17 20:00 36.4 83 23 142/87 (105) 97 Room Air 12/16/17 19:30 36.6 79 15 165/94 (117) 98 Room Air 12/16/17 19:05 76 12 150/87 96 Room Air 12/16/17 18:50 73 18 178/84 94 Room Air 12/16/17 18:35 80 16 153/87 97 Room Air 12/16/17 18:20 74 12 153/80 95 Room Air 12/16/17 18:05 74 16 162/82 94 Room Air 12/16/17 18:00 77 12 154/78 95 Room Air 12/16/17 17:47 80 20 168/87 99 Room Air 12/16/17 17:30 70 12 186/96 94 Room Air 12/16/17 17:16 70 22 179/99 97 Room Air 12/16/17 17:10 72 23 185/92 97 Room Air 12/16/17 17:02 70 14 181/97 98 Room Air 12/16/17 16:40 69 14 151/83 98 Room Air 12/16/17 15:53 74 18 145/77 93 Room Air 12/16/17 14:40 99 Room Air 12/16/17 14:39 69 18 146/74 100 Room Air 12/16/17 14:27 78 12/16/17 14:15 36.7 69 18 138/74 99 Room Air Patient is right-handed. The patient is awake and alert. Speech has no receptive or expressive aphasia. He does have mild dysarthria. Mentation and thought processes are intact with full orientation and normal fund of knowledge. Mood and affect are normal and appropriate. Appearance and grooming are normal. Long and short-term memory are intact. The discs are sharp with positive venous pulsations. There are no exudates, hemorrhages, or blood vessel changes seen. Pupils are 4mm bilaterally and reactive to light. Extraocular eye muscles are intact however there is significant nystagmus horizontal gaze greater than vertical gaze in all directions, with fast component in the direction of gaze. Visual acuity otherwise seems reasonable. There are no visual field defects to confrontation. There are no deficits to sensation of the face bilaterally. Corneal reflexes are positive bilaterally. Facial strength and symmetry is normal bilaterally. Hearing seems intact grossly to voice and finger rub. Palate moves well without asymmetry. There is normal sternocleidomastoid and trapezius strength bilaterally. Tongue is midline with good strength bilaterally. Neck is with full range of motion without discomfort. There are no cervical bruits. There are no cranial or ocular bruits. Heart is without murmur. Cervical, thoracic, and lumbar spine are nontender to palpation. Gait is not tested but he has trouble sitting up and feels very vertiginous With outstretched arms there is no drift. There are no resting, postural, or action tremors. There is mild ataxia with [id number] testing on the right but not the left. There is mild ataxia with [id number] testing on the right but not the left. There is decreased rapid alternating movements in the right hand compared to the left which is normal. There are no abnormal involuntary movements noted. Motor strength is 5/5 diffusely in the arms bilaterally including deltoids, biceps, brachioradialis, wrist flexors and extensors, miner, and intrinsic hand muscles. Motor strength is 5/5 diffusely in the legs bilaterally including hip flexors, quadriceps, hamstring, gastrocnemius, tibialis anterior, tibialis posterior, and peroneii muscles bilaterally. Toe extensors are normal and there is good bulk in the extensor digitorum brevis muscle bilaterally. The limbs have good tone without rigidity or spasticity, and there is no atrophy noted. Muscle bulk is normal, there is no tenderness, no myotonia noted to percussion, and no fasciculations seen. Sensory examination is intact to pin and touch throughout all four limbs. Reflexes are 1/4 in the biceps, triceps, brachioradialis, quadriceps, and Achilles tendons bilaterally. Toes are downgoing with plantar stimulation bilaterally. Peripheral pulses are present and of normal quality distally in all four limbs. There is no peripheral edema noted. Laboratory Results Past 24 Hours: 12/17/17 04:29 Red Blood Count 4.75, Mean Corpuscular Volume 89.5, Mean Corpuscular Hemoglobin 31.4, Mean Corpuscular Hemoglobin Concent 35.1, Mean Platelet Volume 12.1, Neutrophils (%) (Auto) 92.8, Lymphocytes (%) (Auto) 3.1, Monocytes (%) (Auto) 3.8, Eosinophils (%) (Auto) 0.0, Basophils (%) (Auto) 0.0, Neutrophils # (Auto) 19.22, Lymphocytes # (Auto) 0.64, Monocytes # (Auto) 0.78, Eosinophils # (Auto) 0.00, Basophils # (Auto) 0.01 12/17/17 04:29 Test 12/16/17 14:15 12/16/17 15:09 12/16/17 15:43 12/16/17 19:46 Estimated Average Glucose 108 mg/dl Hemoglobin A1c 5.4 % (4.5-5.6) Total Creatine Kinase 247 U/L (39-308) Creatine Kinase MB 2.6 ng/ml (0.5-3.6) Creatine Kinase MB Ratio 1.1 (0-3.0) Troponin I < 0.015 ng/ml (0-0.045) Lipase 129 U/L (73-393) Thyroid Stimulating Hormone (TSH) 1.990 uIu/ml (0.300-4.500) Bedside Hemoglobin 14.3 g/dl (14.0-18.0) Bedside Hematocrit 42 % (42-52) Bedside Sodium 144 mEq/L (135-144) Bedside Potassium 3.6 mEq/L (3.3-5.0) Bedside Chloride 108 mEq/L (101-112) Bedside Total CO2 23 mEq/l (24-31) Bedside Blood Urea Nitrogen 24 mg/dl (7-18) Bedside Creatinine 0.8 mg/dl (0.6-1.3) Bedside Glucose (other) 153 mg/dl (70-99) Bedside Ionized Calcium (Karyn) 1.09 mmol/l (1.12-1.32) Urine Color YELLOW Urine Appearance CLEAR (CLEAR) Urine pH 7.5 (4.5-7.5) Urine Specific [place] 1.042 (1.000-1.030) Urine Protein NEG (NEG) Urine Glucose (UA) NEG (NEG) Urine Ketones 1+ (NEG) Urine Occult Blood NEG (NEG) Urine Nitrite NEG (NEG) Urine Bilirubin NEG (NEG) Urine Urobilinogen NEG (NEG) Urine Leukocyte Esterase TRACE (NEG) Urine WBC (Auto) 1-5 /hpf (0-5) Urine RBC (Auto) 0-4 /hpf (0-4) Urine Hyaline Casts (Auto) 1-5 /lpf (0-5) Urine Epithelial Cells (Auto) 5-10 /lpf (0-5) Urine Bacteria (Auto) NEG (NEG) Gastric Fluid pH 5-7 Gastric Fluid Occult Blood POS (NEG) Test 12/17/17 04:29 12/17/17 04:37 White Blood Count 20.72 K/uL (4.8-10.8) Red Blood Count 4.75 M/uL (4.7-6.1) Hemoglobin 14.9 g/dL (14.0-18.0) Hematocrit 42.5 % (42-52) Mean Corpuscular Volume 89.5 fL (80-100) Mean Corpuscular Hemoglobin 31.4 pg (25-34) Mean Corpuscular Hemoglobin Concent 35.1 g/dl (32-36) Platelet Count 168 K/uL (130-400) Mean Platelet Volume 12.1 fL (7.4-10.4) Neutrophils (%) (Auto) 92.8 % Lymphocytes (%) (Auto) 3.1 % Monocytes (%) (Auto) 3.8 % Eosinophils (%) (Auto) 0.0 % Basophils (%) (Auto) 0.0 % Neutrophils # (Auto) 19.22 K/uL (1.4-6.5) Lymphocytes # (Auto) 0.64 K/uL (1.2-3.4) Monocytes # (Auto) 0.78 K/uL (0.11-0.59) Eosinophils # (Auto) 0.00 K/uL (0-0.5) Basophils # (Auto) 0.01 K/uL (0-0.2) RDW Standard Deviation 43.2 fL (36.4-46.3) RDW Coefficient of Variation 13.1 % (11.5-14.5) Immature Granulocyte % (Auto) 0.3 % Immature Granulocyte # (Auto) 0.07 K/uL (0.00-0.02) Platelet Estimate NORMAL Red Blood Cell Morphology Unremarkable Prothrombin Time 13.7 SECONDS (9.0-12.0) Prothromb Time International Ratio 1.3 (0.9-1.1) Activated Partial Thromboplast Time 26.9 SECONDS (21.0-31.0) Partial Thromboplastin Ratio 1.0 Anion Gap 8.0 mmol/L (3-11) Est Creatinine Clear Calc Drug Dose 126.5 ml/min Estimated GFR () 118.0 Estimated GFR (Non- 101.8 BUN/Creatinine Ratio 23.5 (10-20) Calcium Level 8.2 mg/dl (8.5-10.1) Phosphorus Level 3.1 mg/dl (2.5-4.9) Magnesium Level 2.3 mg/dl (1.8-2.4) Total Bilirubin 0.9 mg/dl (0.2-1) Direct Bilirubin 0.2 mg/dl (0-0.2) Aspartate Amino Transf (AST/SGOT) 22 U/L (15-37) Alanine Aminotransferase (ALT/SGPT) 26 U/L (12-78) Alkaline Phosphatase 74 U/L (45-117) Total Protein 7.4 gm/dl (6.4-8.2) Albumin 4.1 gm/dl (3.4-5.0) Triglycerides Level 33 mg/dl (0-150) Cholesterol Level 122 mg/dl (0-200) HDL Cholesterol 45 mg/dl LDL Cholesterol, Calculated 70 mg/dl VLDL Cholesterol, Calculated 7 mg/dl Cholesterol/HDL Ratio 2.7 Bedside Glucose 148 mg/dl (70-99) Date/Time Source Procedure Growth Status 12/16/17 19:46 Nasal MRSA DNA Surveillance Screen - Final Specimen Negative for MRSA by DNA Probe Complete Imaging MRI OF THE BRAIN COMBO CLINICAL HISTORY: Strokelike symptoms. COMPARISON STUDY: CT of the brain dated 12/16/2017. TECHNIQUE: MRI of the brain was performed utilizing various T1 and T2-weighted sequences in the axial, sagittal, and coronal planes. Contrast-enhanced sequences were acquired following the administration of 10 cc of Gadavist. FINDINGS: Brain parenchyma: There is a large region of restricted diffusion identified within the right cerebellar hemisphere consistent with acute to subacute ischemia. No additional foci of acute ischemia are identified. There is no hemorrhage or mass effect. A chronic lacunar infarct is also identified in the right cerebellar hemisphere. A small focus of right occipital encephalomalacia is consistent with a remote infarct. There is minimal periventricular microangiopathic disease. No enhancing mass lesion is identified on the postcontrast images. [place]-white matter differentiation is preserved. No extra-axial fluid collection is seen. The cerebellar tonsils are normal in configuration. Ventricles, sulci, and cisterns: Normal in configuration. Pituitary and sella: Unremarkable. Intracranial vasculature: Normal flow voids are maintained at the skull base. Orbits: The bony orbits are grossly intact. Orbital contents are normal in appearance. Sinuses and mastoids: Clear. Calvarium: Unremarkable. Cervical cord: Partially visualized cervical spinal cord is normal in morphology and signal intensity. IMPRESSION: 1. There is a large acute to subacute infarct involving the right cerebellar hemisphere. 2. No additional foci of acute ischemia are identified. There is no hemorrhage or mass effect. 3. Additional chronic infarcts are seen in the right cerebellar hemisphere and the right occipital lobe. Electronically signed by: Neo Thomas M.D. 12/16/2017 10:50 PM Impression 1. Acute right cerebellar stroke December 16, post tPA Currently, the patient has an NIH stroke scale of 3 (dysarthria, right arm ataxia, right leg ataxia). He does not have any significant weakness or sensory changes. He does not have neglect, confusion, or aphasia (expressive or receptive). He has no visual field cuts but he has blurry vision from significant nystagmus and vertiginous symptoms. This was likely embolic from the heart although an ischemic event cannot entirely be excluded. MR angiography of the [place] was unremarkable with no posterior fossa vessel clots. Carotid ultrasound showed no significant stenoses either. Atrial fibrillation is his biggest risk factor for stroke. The patient had a low INR of 1.2 on admission, likely from noncompliance. This put him at great risk for stroke, with his atrial fibrillation, particularly if he is going in and out of atrial fibrillation. The patient has other risk factors for stroke including hypertension and dyslipidemia. He does not have diabetes or tobacco smoking risk factors. 2. History of aortic valve replacement on anticoagulation with subtherapeutic INR. He should be heparinized when able and the ProTime can be brought up slowly until he reaches full/proper anticoagulation. Unfortunately, since we have given tPA, he should not be given any anticoagulants for 24 hours post infusion. Because of the size of his stroke and risk of hemorrhagic conversion, when we are able to heparinize him, I would not give him a bolus but would just start a drip and adjust accordingly. 3. Elevated white count I cannot exclude infection or sepsis, but he is afebrile and there is no obvious source so far. Plan 1. Following acute stroke, post tPA protocol for now. Use the post tPA day 2 order set starting tonight into tomorrow. 2. Heparinize when able (24 hours post tPA). Starting heparin prior to 24 hour protocol post tPA would clearly put him at higher risk for intercerebral bleed at the site of the stroke. Also, avoid a heparin bolus for the same reasons (he is at high risk given his large size stroke for a posterior fossa hemorrhage). Rather, select a proper weight based dose and start the drip, adjusting, per protocol, from there. 3. Restart Coumadin after heparin drip initiated. 4. Physical, occupational, and speech therapy consult. 5. Treating nausea with Zofran. 6. The vertiginous symptoms may respond better to Antivert. If this does not help we could consider small doses of benzodiazepines for his vertigo. 7. Awaiting echocardiogram results. 8. Evaluate for infection given elevated white count. 9. Control blood pressure as you are doing, trying for a mean arterial pressure of approximately 100. 10. Glucose control is reasonable for now. Hemoglobin A1c was 5.4 11. Continue Lipitor for now. His cholesterol is 122 and this in conjunction with his entire case, he is not necessarily a high-dose statin candidate. I will follow Overall, I spent a total of 140 minutes with this case including records review and review of MRI and CT films, direct evaluation the patient at bedside, discussion of the case with Dr. Alicia, Angela Pinzon, Dr. Guillen, clinical staff on the case and the patient himself at bedside including differential diagnosis and treatment options.
[2017-12-17] MEDS: PANTOprazole INJ 40 MG in SYRINGE 0 ML IV SCH ×2 (10:14→22:20)
[2017-12-17] MEDS: POTASSIUM CHLR 10 MEQ / WTR 100 ML IV SCH ×4 (11:20→14:00)
[2017-12-17] MEDS: SODIUM CHLORIDE 0.9% 1000ML 1,000 ML IV SCH ×2 (11:22→23:29)
[2017-12-17] MEDS: METOCLOPRAMIDE HCL 10 MG TAB PO SCH ×3 (11:33→22:20)
--- NOTE | 2017-12-17 12:46 | CARDIOLOGY CONSULTATION REPORT ---
DATE OF CONSULTATION: 12/17/2017 REASON FOR CONSULTATION: CVA. HISTORY OF PRESENT ILLNESS: Mr. Ríos is a 57-year-old white male with a history of Bicuspid Aortic Valve with Severe Aortic Stenosis s/p St. Robert 27 mm mechanical aortic valve replacement, 09/29/2007, CAD s/p CABG x 2 Vessels 09/29/2007 (QUINN to LAD, SVG to PDA), Dyslipidemia, Paroxysmal Atrial Fibrillation, Depression, PTSD, and a history of Medical Noncompliance -- who presented acutely to [facility] Room yesterday afternoon complaining of profound nausea, vomiting, flushing sensation, and dizziness. He developed these symptoms after eating a lunch at a local [employer] restaurant. In the Emergency Room, he underwent evaluation including CT scan of abdomen and pelvis showed bilateral nephrolithiasis but no evidence of ureteral or urinary obstruction and no acute processes occurring in the abdomen or pelvis. He had an elevated white blood cell count - likely demarginalization of white cells secondary to vomiting. He was noted to have an INR that was subtherapeutic at 1.2 but admits to missing doses of Coumadin last week. During his stay in the ER, the patient had worsening of his condition overall and developed slurred speech. He underwent CT scan of the brain, which was suggestive of an acute right sided occipital infarct. Subsequent MRI of the brain confirmed that diagnosis. A stroke alert was called, and the patient underwent tPA administration at 1706 which he tolerated that without complications. The patient was subsequently admitted to the ICU. The patient is currently being seen in room 108. He continues to complain of nausea and dizziness (described more as a vertigo than lightheadedness), and he continues to have slurred speech. He is able to move his arms and legs at will, but he has not tried walking. The patient does admit to intermittent palpitations from time to time, but he did not have any yesterday prior to the onset of his symptoms. On telemetry monitoring, he is noted to have brief episodes of atrial fibrillation and atrial tachycardia. He denies any recent angina pectoris and specifically denies any exertional chest pain, heaviness, tightness, or pressure. The patient denies any recent shortness of breath, unusual dyspnea on exertion, or any recent changes in his exertional tolerance. He denies any orthopnea or PND. He has not had any syncopal episodes. The patient missed several doses of Coumadin recently, although he does not give any specific reason for missing these doses. The patient offers no other complaints or concerns. MEDICATIONS: 1. Toprol-XL 25 mg daily. 2. Aspirin 81 mg daily. 3. Reglan 10 mg p.o. before meal and at bedtime. 4. Lipitor 80 mg daily. 5. Multivitamin daily. 6. Prochlorperazine 5 mg IV q.6 h. p.r.n. for nausea. 7. Zofran 4 mg IV q.6 h. p.r.n. for nausea or vomiting. 8. Normal saline at 80 mL/h. 9. Protonix 40 mg IV b.i.d. 10. Acetaminophen 650 mg IV q.6 h. p.r.n. for pain or fever. 11. He did receive alteplase yesterday beginning at 1706. ALLERGIES: 1. SERTRALINE. 2. ITRACONAZOLE. PAST MEDICAL HISTORY: 1. History of bicuspid aortic valve with severe aortic stenosis, status post St. Robert 27 mm mechanical AVR, 09/29/2007. 2. CAD, status post CABG x2 vessels, 09/29/2007, including QUINN to LAD, SVG to PDA. 3. Dyslipidemia. 4. PTSD. 5. Depression. 6. History of diverticulosis with diverticulitis. 7. History of nephrolithiasis. 8. BPH. 9. History of spermatocele. 10. Osteoarthritis. 11. Status post ankle surgery. 12. History of knee arthroplasty. 13. Paroxysmal atrial fibrillation. 14. Newly diagnosed cardiomyopathy with current LVEF of 30%-35%. SOCIAL HISTORY: The patient is a nonsmoker. He does not drink alcohol. FAMILY HISTORY: Significant for CAD, diabetes mellitus, and nephrolithiasis. PHYSICAL EXAMINATION: VITAL SIGNS: Temperature is 36.6 degrees Celsius, pulse is 94 and regular, respiratory rate is 22 and unlabored, blood pressure is 145/76, SpO2 is 95% on room air. GENERAL: The patient is in no acute distress. HEENT: Head is atraumatic and normocephalic. EOMs intact. Sclerae are anicteric. Face is symmetric. No perioral cyanosis. NECK: Without JVD. Carotid upstroke is +2 bilaterally, without obvious bruits. JVP is not elevated. RESPIRATORY: Chest and lungs are clear to auscultation throughout all lung mcadams. No wheezes, rales, or rhonchi. CARDIOVASCULAR SYSTEM: S1 and S2 are regular, with occasional ectopy, crisp aortic valve closure sound. There is a grade 1/6 basal systolic murmur, which radiates to the upper chest. No diastolic murmur is appreciated. No obvious gallops or rubs. PMI is nondisplaced. No lifts, heaves, or thrills. No abdominal, aortic, or renal bruits. ABDOMEN: Bowel sounds present. No masses, organomegaly, or tenderness. EXTREMITIES: Without clubbing, cyanosis, or edema. NEUROLOGIC: The patient is awake and interactive. Answers questions appropriately, but his speech is very thick, slurred speech at times. Able to move arms and legs at will. Gait pattern not assessed. Telemetry monitoring reveals predominantly normal sinus rhythm with occasional PVCs/PACs, brief runs of paroxysmal atrial fibrillation, and brief runs of atrial tachycardia. Echocardiogram performed on 12/17/2017 shows the following: - Mildly dilated LV with moderately to severely reduced LV systolic function. - LVEF 30%-35%, with regional wall motion abnormalities as specified below. - Akinesis of distal septum, distal anterior wall, distal inferior wall, and apex. - Hypokinesis to akinesis involving the basal inferior and mid inferior lateral wall. - Otherwise global hypokinesis. - Mild concentric LVH. - Mildly dilated left atrium. - Mechanical aortic valve with acceptable transvalvular gradient and velocity. - Mild MR. - Top normal RVSP at 36 mmHg. LABORATORY DATA: White blood cell count 20.72, hemoglobin 14.9 g/dL, hematocrit 42.5%, platelet count 168,000. INR is subtherapeutic on admission at 1.2. Current INR is 1.3. Sodium 139 mmol/L, potassium 3.3 mmol/L, BUN is 18 mg/dL, with creatinine of 0.75 mg/dL, random glucose 148 mg/dL. Serum magnesium level is 2.3 mg/dL. Total CK 247 units/L, with a CK-MB of 2.6 ng/mL. Troponin I level less than 0.015 ng/mL. Total cholesterol is 122, with an HDL cholesterol of 45, and an LDL cholesterol of 70 mg/dL. TSH is normal at 1.990 uIUs/mL. IMAGING: MRA of the brain unremarkable. MRI of the brain shows large acute/subacute infarct involving the right cerebellar hemisphere. No hemorrhage or mass effect. Additional chronic infarcts are seen in the right cerebellar hemisphere and the right occipital lobe. ASSESSMENT: 1. Acute right cerebellar CVA in a patient with a mechanical aortic valve, cardiomyopathy, paroxysmal atrial fibrillation, and a subtherapeutic INR. 2. CAD s/p CABG x 2 Vessels in 2007. 3. Cardiomyopathy, possibly ischemic, currently compensated. 4. History of bicuspid aortic valve with severe s/p St. Robert mechanical AVR in 2007. 5. Paroxysmal Atrial Fibrillation. 6. Dyslipidemia. 7. History of Medication Noncompliance. 8. Diagnoses as mentioned above. PLAN: 1. The patient was in the ER yesterday when he developed acute CVA symptoms and MRI of the brain confirmed that. He subsequently underwent thrombolytic therapy with alteplase. His INR was and remains subtherapeutic at this time. 2. He is at very high risk for embolic CVA considering that he has a mechanical aortic valve, paroxysmal atrial fibrillation, newly diagnosed cardiomyopathy, and has been noncompliant with Coumadin. 3. I discussed at length the importance of being anticoagulated to reduce the risk of stroke and other embolic phenomenon in the future. 4. The patient will need to be restarted on anticoagulation when appropriate after receiving thrombolytics. Recommend beginning heparin and restarting Coumadin when he meets criteria to restart anticoagulation. Goal INR is 2.5 to 3.5. 5. As he is still having brief episodes of atrial fibrillation and atrial tachycardia, recommend titrating Toprol XL to 50 mg daily. 6. Continue Aspirin 81 mg daily. 7. Continue high dose Lipitor 80 mg daily. 8. Recommend physical therapy, occupational therapy, and speech therapy evaluations during this hospitalization. 9. Remained on telemetry monitoring in the meantime to further evaluate atrial fibrillation burden. 10. We will continue to follow closely while hospitalized. At some point, he will need further evaluation of his cardiomyopathy and its cause. Attending note: Agree with above. Howie OLVERA
--- NOTE | 2017-12-17 15:01 | DIAGNOSTIC IMAGING REPORT ---
CT SCAN OF THE BRAIN WITHOUT IV CONTRAST CLINICAL HISTORY: Follow-up stroke. COMPARISON STUDY: CT an MRI of the brain dated 12/16/2017. TECHNIQUE: Unenhanced axial CT scan of the brain is performed from the vertex to the skull base. A dose lowering technique was utilized adhering to the principles of ALARA. CT DOSE: 729.78 mGycm FINDINGS: Brain parenchyma: There is a large evolving infarct identified in the right cerebellar hemisphere. No hemorrhage is clearly identified. There is increasing edema as compared to yesterday's examinations with mild effacement of the fourth ventricle. There is also crowding of the cerebellar tonsils at the foramen magnum. A small chronic right occipital infarct is unchanged. There is no midline shift. No extra-axial fluid collection is seen. Ventricles, sulci, cisterns: See above. Intracranial vasculature: There is atherosclerotic calcification of the cavernous carotid and vertebral arteries. Calvarium: Unremarkable. Sinuses and mastoids: The visualized paranasal sinuses are clear. The mastoid air cells are well pneumatized. Orbits: The bony orbits are grossly intact. IMPRESSION: 1. There is a large evolving right cerebellar infarct as above. There is increasing edema in the posterior fossa as compared to yesterday with mild effacement of the fourth ventricle and crowding of the cerebellar tonsils at the foramen magnum. 2. There is no hydrocephalus. 3. No hemorrhage is identified. Electronically signed by: Neo Thomas M.D. 12/17/2017 3:00 PM Dictated Date/Time: 12/17/2017 2:54 PM
--- NOTE | 2017-12-17 16:28 | Hospitalist Progress Note ---
Hospitalist Progress Note Date of Service Dec 17, 2017. (Angela Pinzon CRNP) Subjective Pt evaluation today including: conversation w/ patient, physical exam, chart review, lab review, review of studies, conversation w/ e business consultant, review of inpatient medication list Voiding: no voiding problems Mr. Ríos continues to be nauseas with vertigo especially when eyes are open. He denies any pain. ROS Constitutional: no chills, aches, sweats or fever Respiratory: no sob,cough, sputum, or wheezing Cardiac: no chest pain, palpitations, edema, orthopnea or lightheadedness GI: no abdominal pain, diarrhea or constipation : no dysuria or hesitancy Extremities: no joint pain or weakness Skin: no rash All other systems reviewed and negative (Angela Pinzon CRNP) Medications Medications Administered Medications (Trade) Dose Ordered Sig/Jesus Route Start Time Stop Time Status Last Admin Dose Admin Ondansetron HCl (Zofran Inj) 4 mg NOW STAT IV 12/16/17 14:14 12/16/17 14:16 DC 12/16/17 14:32 4 MG Sodium Chloride 1,000 ml @ 999 mls/hr Q1H1M STAT IV 12/16/17 14:14 12/16/17 15:14 DC 12/16/17 14:14 999 MLS/HR Promethazine HCl 12.5 mg/Sodium Chloride 50.5 ml @ 204 mls/hr NOW STAT IV 12/16/17 14:48 12/16/17 15:02 DC 12/16/17 15:01 204 MLS/HR Alteplase, Recombinant 81 mg/ Empty Bag 81 ml @ 81 mls/hr TODAY@1706 IV 12/16/17 17:06 12/16/17 18:05 DC 12/16/17 17:06 81 MLS/HR Alteplase, Recombinant 9 mg/ Syringe 9 ml @ 9 mls/min TODAY@1705 IV 12/16/17 17:05 12/16/17 17:06 DC 12/16/17 17:05 9 MLS/MIN Atorvastatin Calcium (Lipitor Tab) 80 mg QAM PO 12/17/17 09:00 01/16/18 08:59 12/17/17 09:34 80 MG Metoprolol Succinate (Toprol Xl Tab) 25 mg DAILY PO 12/17/17 09:00 12/17/17 10:04 DC 12/17/17 09:33 25 MG Ondansetron HCl (Zofran Inj) 4 mg STK-MED ONCE .ROUTE 12/16/17 19:26 12/16/17 19:27 DC 12/16/17 19:56 4 MG Acetaminophen 650 mg/Empty Bag 65 ml @ 260 mls/hr Q6H PRN IV 12/16/17 19:30 01/15/18 19:29 12/17/17 00:02 260 MLS/HR Ondansetron HCl 6 mg/Dextrose 53 ml @ 200 mls/hr Q6H PRN IV 12/16/17 19:30 12/17/17 02:31 DC 12/17/17 01:34 200 MLS/HR Pantoprazole Sodium 40 mg/ Syringe 10 ml @ 5 mls/min DAILY@09,21 IV 12/16/17 21:00 01/15/18 20:59 12/17/17 10:14 5 MLS/MIN Metoclopramide HCl (Reglan Inj) 10 mg Q6H PRN IV. 12/16/17 21:00 12/17/17 08:57 DC 12/16/17 21:05 10 MG Sodium Chloride 1,000 ml @ 80 mls/hr [id number] IV 12/16/17 22:45 01/15/18 22:44 12/17/17 11:22 80 MLS/HR Metoclopramide HCl (Reglan Tab) 10 mg ACHS PO 12/17/17 11:00 01/16/18 10:59 12/17/17 11:33 10 MG Prochlorperazine Edisylate 5 mg/ Syringe 5 ml @ 5 mls/min Q6 PRN IV 12/17/17 09:00 01/16/18 08:59 12/17/17 10:14 5 MLS/MIN Potassium Chloride 100 ml @ 100 mls/hr TODAY@1100,1200,1300,1400 IV 12/17/17 11:00 12/17/17 14:59 DC 12/17/17 14:00 100 MLS/HR (Angela Pinzon, FABIÁN) Objective Vital Signs Date Time Temp Pulse Resp B/P (MAP) Pulse Ox O2 Delivery O2 Flow Rate FiO2 12/17/17 15:00 36.7 96 21 133/59 (83) 94 Room Air 12/17/17 14:00 36.7 97 23 139/68 (91) 94 Room Air 12/17/17 13:00 36.9 89 17 127/49 (75) 94 Room Air 12/17/17 12:00 36.9 90 17 133/60 (84) 94 Room Air 12/17/17 11:00 36.6 88 24 141/74 (96) 96 Room Air 12/17/17 10:00 36.6 94 22 127/77 (94) 95 Room Air 12/17/17 09:00 36.7 90 24 145/76 (99) 95 Room Air 12/17/17 08:00 Room Air 12/17/17 08:00 36.6 90 24 148/82 (104) 95 Room Air 12/17/17 08:00 95 Room Air 12/17/17 07:00 36.8 91 23 143/76 (98) 94 Room Air 12/17/17 06:00 36.4 91 26 138/77 (97) 95 Room Air 12/17/17 05:00 36.5 95 21 137/74 (95) 95 Room Air 12/17/17 04:00 36.7 88 18 146/80 (102) 95 Room Air 12/17/17 03:00 36.5 86 14 142/87 (105) 95 Room Air 12/17/17 02:00 36.1 92 16 164/87 (112) 95 Room Air 12/17/17 01:00 36.4 96 15 155/93 (113) 96 Room Air 12/17/17 00:30 36.4 90 18 144/80 (101) 95 Room Air 12/17/17 00:01 Room Air 12/17/17 00:00 36.1 93 15 153/76 (101) 93 Room Air 12/16/17 23:30 36.3 90 17 134/94 (107) 98 Room Air 12/16/17 23:00 36.5 87 23 141/98 (112) 96 Room Air 12/16/17 22:56 Room Air 12/16/17 22:30 36.8 89 17 150/80 (103) 93 Room Air 12/16/17 22:00 83 135/89 (104) 16 Room Air 12/16/17 21:30 86 16 161/91 (114) 97 Room Air 12/16/17 21:00 36.5 85 14 145/85 (105) 97 Room Air 12/16/17 20:30 36.6 82 21 131/79 (96) 98 Room Air 12/16/17 20:30 36.6 82 21 131/79 (96) 98 Room Air 12/16/17 20:00 36.4 83 23 142/87 (105) 97 Room Air 12/16/17 19:30 36.6 79 15 165/94 (117) 98 Room Air 12/16/17 19:05 76 12 150/87 96 Room Air 12/16/17 18:50 73 18 178/84 94 Room Air 12/16/17 18:35 80 16 153/87 97 Room Air 12/16/17 18:20 74 12 153/80 95 Room Air 12/16/17 18:05 74 16 162/82 94 Room Air 12/16/17 18:00 77 12 154/78 95 Room Air 12/16/17 17:47 80 20 168/87 99 Room Air 12/16/17 17:30 70 12 186/96 94 Room Air 12/16/17 17:16 70 22 179/99 97 Room Air 12/16/17 17:10 72 23 185/92 97 Room Air 12/16/17 17:02 70 14 181/97 98 Room Air 12/16/17 16:40 69 14 151/83 98 Room Air 12/16/17 15:53 74 18 145/77 93 Room Air (Angela Pinzon CRNP) Physical Exam Notes: General: no distress Eyes: normal inspection, PERLL Respiratory: chest non tender, clear to auscultation, normal breath sounds, no respiratory distress, no accessory muscle use Cardiac: regular rate and rhythm, no rub or gallop, systolic murmur, no edema, no jvd GI/: active bowel sounds, no abd pain or tenderness, soft, non distended Extremities: normal range of motion, normal strength, non tender Neuro/Psych: alert and oriented x 3, mild aphasia and dysarthria, no drift, bilateral lateral nystagmus and difficulty tracking, legal intern otherwise intact Skin: normal color, dry (Angela Pinzon CRNP) Laboratory Results Last 24 Hours Test 12/16/17 19:46 12/17/17 04:29 12/17/17 04:37 Gastric Fluid pH 5-7 Gastric Fluid Occult Blood POS White Blood Count 20.72 K/uL Red Blood Count 4.75 M/uL Hemoglobin 14.9 g/dL Hematocrit 42.5 % Mean Corpuscular Volume 89.5 fL Mean Corpuscular Hemoglobin 31.4 pg Mean Corpuscular Hemoglobin Concent 35.1 g/dl Platelet Count 168 K/uL Mean Platelet Volume 12.1 fL Neutrophils (%) (Auto) 92.8 % Lymphocytes (%) (Auto) 3.1 % Monocytes (%) (Auto) 3.8 % Eosinophils (%) (Auto) 0.0 % Basophils (%) (Auto) 0.0 % Neutrophils # (Auto) 19.22 K/uL Lymphocytes # (Auto) 0.64 K/uL Monocytes # (Auto) 0.78 K/uL Eosinophils # (Auto) 0.00 K/uL Basophils # (Auto) 0.01 K/uL RDW Standard Deviation 43.2 fL RDW Coefficient of Variation 13.1 % Immature Granulocyte % (Auto) 0.3 % Immature Granulocyte # (Auto) 0.07 K/uL Platelet Estimate NORMAL Red Blood Cell Morphology Unremarkable Prothrombin Time 13.7 SECONDS Prothromb Time International Ratio 1.3 Activated Partial Thromboplast Time 26.9 SECONDS Partial Thromboplastin Ratio 1.0 Sodium Level 139 mmol/L Potassium Level 3.3 mmol/L Chloride Level 108 mmol/L Carbon Dioxide Level 23 mmol/L Anion Gap 8.0 mmol/L Blood Urea Nitrogen 18 mg/dl Creatinine 0.75 mg/dl Est Creatinine Clear Calc Drug Dose 126.5 ml/min Estimated GFR () 118.0 Estimated GFR (Non- 101.8 BUN/Creatinine Ratio 23.5 Random Glucose 153 mg/dl Calcium Level 8.2 mg/dl Phosphorus Level 3.1 mg/dl Magnesium Level 2.3 mg/dl Total Bilirubin 0.9 mg/dl Direct Bilirubin 0.2 mg/dl Aspartate Amino Transf (AST/SGOT) 22 U/L Alanine Aminotransferase (ALT/SGPT) 26 U/L Alkaline Phosphatase 74 U/L Total Protein 7.4 gm/dl Albumin 4.1 gm/dl Triglycerides Level 33 mg/dl Cholesterol Level 122 mg/dl HDL Cholesterol 45 mg/dl LDL Cholesterol, Calculated 70 mg/dl VLDL Cholesterol, Calculated 7 mg/dl Cholesterol/HDL Ratio 2.7 Procalcitonin < 0.05 ng/ml Hepatitis C Antibody Screen NEG Bedside Glucose 148 mg/dl (Angela Pinzon CRNP) Assessment and Plan Mr. Ríos is a 57 year old man here for CVA CVA requiring TPA - consult dining car conductor, continue ICU monitoring - Tpa protocol - day 2 tPA orders placed - CT head showed evolving stroke in the right occiput, repeat CT head today showing large evolving right cerebellar infarct as above. There is increasing edema in the posterior fossa as compared to yesterday with mild effacement of the fourth ventricle and crowding of the cerebellar tonsils at the foramen magnum. No apparent bleed - MRI supports diagnosis of cerebellar infarct, MRA head and carotid ultrasound unremarkable - continue home 80 mg atorvastatin - ASA initiated today per ICU - PT/OT/speech - consult neurology - EKG with prolonged QT - permissive htn - metoprolol increased from 25 back to home dose of 50 mg to help control A.fib which was rapid at times - NIHSS qS and per tPA protocol Afib, mechanical aortic valve, CAD, dyslipidemia, new onset cardiomyopathy - hold coumadin for now - can restart after 24 hours, INR subtherapeutic at 1.2 on admission - continue metoprolol as above, statin - consult cardiology, patient sees Dr. Valles - Echo showing reduced EF 30%, WMA and hypokinesis - Patient at risk for thrombus with A.fib, mechanical valve and cardiomyopathy - anticoagulation discussed with neuro, dining car conductor, and cardiology. tPA protocol requires waiting 24 hours to initiate anticoagulation due to risk of hemorrhage. Neuro and ICU providers discussed and heparin will be started after 24 hour period per dining car conductor Full code No DVT prophylaxis until tPA 24 hour period is over, SCDs Prolonged visit of more than 60 minutes including assessing patient and discussing plan of care with specialist providers (Angela Pinzon CRNP) [employer] SYSTEM[employer] ARCHITECT Physician Supervision Note: I interviewed and examined the patient. Discussed with Angela Pinzon [employer] ARCHITECT and agree with findings and plan as documented in the note. Any exceptions or clarifications are listed here: None Patient is having difficulty with nystagmus he was somnolent he had a mild headache at the time I evaluated him he was sent out for repeat CT scan. Plans of starting anticoagulation 24 hours after initial TPA to mitigate his risk of further embolic stroke from his atrial fibrillation mechanical heart valve are undertaken otherwise he has been stable but will need rehab Documented By: Emmanuel Alicia (Emmanuel Alicia M.D.)
[2017-12-17] MEDS ORDERED: ASPIRIN 81 MG CHEW PO SCH (18:00)
[2017-12-17] MEDS: HEPARIN 25,000 UNIT/500ML D5W 500 ML IV SCH (18:48)
[2017-12-18] VITALS (19 sets, daily range): BP systolic 118–153; BP diastolic 63–86; PULSE 64–84; TEMP 36.6–37.1; O2SAT 92–98
[2017-12-18 01:32] LABS: PTT PATIENT 45.9 SECONDS (21.0-31.0)
[2017-12-18] MEDS ORDERED: HEPARIN IV BOLUS 3,000 UNIT in SYRINGE 0 ML IV ONE (02:00)
--- NOTE | 2017-12-18 07:02 | DIAGNOSTIC IMAGING REPORT ---
CHEST ONE VIEW PORTABLE CLINICAL HISTORY: Stroke mental status change COMPARISON STUDY: 12/17/2017 FINDINGS: Mild cardia megaly. Prior median sternotomy. Mild increase in pulmonary vasculature compared to the prior study. IMPRESSION: Mild congestive heart failure. The above report was generated using voice recognition software. It may contain grammatical, syntax or spelling errors. Electronically signed by: Enrique Bhandari M.D. 12/18/2017 7:00 AM Dictated Date/Time: 12/18/2017 6:59 AM
[2017-12-18] MEDS: METOCLOPRAMIDE HCL 10 MG TAB PO SCH ×3 (07:23→16:20)
[2017-12-18 07:48] LABS: BASO ABS # 0.01 K/uL (0-0.2); HEMATOCRIT 42.6 % (42-52); HEMOGLOBIN 14.7 g/dL (14.0-18.0); IG# 0.06 K/uL (0.00-0.02); LYMPH % 6.9 %; LYMPH ABS # 1.49 K/uL (1.2-3.4); MEAN CELL VOLUME 90.6 fL (80-100); MEAN CORPUSCULAR HEMOGLOBIN 31.3 pg (25-34); MEAN CORPUSCULAR HGB CONC 34.5 g/dl (32-36); MEAN PLATELET VOLUME 11.8 fL (7.4-10.4); MONO ABS # 1.29 K/uL (0.11-0.59); NEUT % 86.8 %; NEUT ABS # 18.64 K/uL (1.4-6.5); PLATELET COUNT 147 K/uL (130-400); RED CELL DISTRIBUTION WIDTH CV 13.4 % (11.5-14.5); RED CELL DISTRIBUTION WIDTH SD 44.9 fL (36.4-46.3); WHITE BLOOD COUNT 21.49 K/uL (4.8-10.8)
[2017-12-18] MEDS: ACETAMINOPHEN IV 650 MG in EMPTY BAG 0 ML IV PRN (07:49)
[2017-12-18 08:10] LABS: ALBUMIN 3.6 gm/dl (3.4-5.0); CALCIUM 8.2 mg/dl (8.5-10.1); CREATININE 0.73 mg/dl (0.60-1.40); PHOSPHORUS 2.1 mg/dl (2.5-4.9); POTASSIUM 3.2 mmol/L (3.5-5.1); TOTAL PROTEIN 6.7 gm/dl (6.4-8.2)
[2017-12-18] MEDS ORDERED: POTASSIUM PHOS 3 MMOL/1 ML INFUSION IV STA (08:25)
[2017-12-18] MEDS ORDERED: POTASSIUM CHLORIDE 10 MEQ TABCR PO ONE (08:30)
[2017-12-18 08:31] LABS: PTT PATIENT 156.4 SECONDS (21.0-31.0)
[2017-12-18] MEDS ORDERED: POTASSIUM PHOSPHATE INJ 30 MMOL in SODIUM CHLORIDE 0.9% 500ML 500 ML IV ONE (08:45)
[2017-12-18] MEDS ORDERED: PANTOprazole SOD 40 MG TAB PO SCH (09:00)
[2017-12-18] MEDS ORDERED: ASPIRIN 81 MG ECTAB PO SCH (09:00)
[2017-12-18] MEDS ORDERED: METOPROLOL SUCC 50MG EXT REL TAB PO SCH (09:00)
[2017-12-18 09:30] LABS: PTT PATIENT 154.3 SECONDS (21.0-31.0)
[2017-12-18] MEDS: ATORVASTATIN 40 MG TAB PO SCH (10:08)
[2017-12-18] MEDS: MULTIVITAMIN TAB PO SCH (10:08)
[2017-12-18 10:45] LABS: PTT PATIENT 74.9 SECONDS (21.0-31.0)
--- NOTE | 2017-12-18 10:48 | DIAGNOSTIC IMAGING REPORT ---
HEAD WITHOUT CONTRAST (CT) CT DOSE: 729.78 mGycm HISTORY: Mental status change stroke TECHNIQUE: Multiaxial CT images of the head were performed without the use of intravenous contrast. A dose lowering technique was utilized adhering to the principles of ALARA. Comparison: 12/17/2017 Findings: The paranasal sinuses and mastoid air cells are clear. The right cerebellar infarct is again noted. Transaxial image 9 suggests the possibility of minimal T healed type hemorrhagic component although a large hemorrhagic component is not seen. There continues to be mild mass effect upon the fourth ventricle with mild displacement of the left. This is unchanged and stable. The ventricular system is midline. No additional new or interval findings are present. Impression: 1. Large geographic right cerebellar infarct. This appears unchanged in terms of size compared to the prior exam. 2. Small band of slightly increased density transaxial image 9. 3. This potentially represents a minimal petechial hemorrhagic component although a significant or large hematoma is not appreciated. 4. Mild left lateral midline shift of the fourth ventricle unchanged from the prior study. The above report was generated using voice recognition software. It may contain grammatical, syntax or spelling errors. Electronically signed by: Enrique Bhandari M.D. 12/18/2017 10:47 AM Dictated Date/Time: 12/18/2017 10:43 AM
[2017-12-18] MEDS: HEPARIN 25,000 UNIT/500ML D5W 500 ML IV SCH (11:51)
[2017-12-18] MEDS: SODIUM CHLORIDE 0.9% 1000ML 1,000 ML IV SCH (11:54)
--- NOTE | 2017-12-18 12:10 | Hospitalist Progress Note ---
Hospitalist Progress Note Date of Service Dec 18, 2017. Subjective Pt evaluation today including: conversation w/ patient, physical exam, chart review, lab review, review of inpatient medication list Voiding: no voiding problems Mr. Ríos is frustrated with his slurred speech. He continues to have vertigo, less nauseas today. He denies any pain. ROS Constitutional: no chills, aches, sweats or fever Respiratory: no sob,cough, sputum, or wheezing Cardiac: no chest pain, palpitations, edema, orthopnea or lightheadedness GI: no abdominal pain, nausea, vomiting, diarrhea or constipation : no dysuria or hesitancy Extremities: no joint pain or weakness Skin: no rash All other systems reviewed and negative Medications Medications Administered Medications (Trade) Dose Ordered Sig/Jesus Route Start Time Stop Time Status Last Admin Dose Admin Ondansetron HCl (Zofran Inj) 4 mg NOW STAT IV 12/16/17 14:14 12/16/17 14:16 DC 12/16/17 14:32 4 MG Sodium Chloride 1,000 ml @ 999 mls/hr Q1H1M STAT IV 12/16/17 14:14 12/16/17 15:14 DC 12/16/17 14:14 999 MLS/HR Promethazine HCl 12.5 mg/Sodium Chloride 50.5 ml @ 204 mls/hr NOW STAT IV 12/16/17 14:48 12/16/17 15:02 DC 12/16/17 15:01 204 MLS/HR Alteplase, Recombinant 81 mg/ Empty Bag 81 ml @ 81 mls/hr TODAY@1706 IV 12/16/17 17:06 12/16/17 18:05 DC 12/16/17 17:06 81 MLS/HR Alteplase, Recombinant 9 mg/ Syringe 9 ml @ 9 mls/min TODAY@1705 IV 12/16/17 17:05 12/16/17 17:06 DC 12/16/17 17:05 9 MLS/MIN Atorvastatin Calcium (Lipitor Tab) 80 mg QAM PO 12/17/17 09:00 01/16/18 08:59 12/18/17 10:08 80 MG Multivitamins (Multivitamin Tab) 1 tab DAILY PO 12/17/17 09:00 01/16/18 08:59 12/18/17 10:08 1 TAB Metoprolol Succinate (Toprol Xl Tab) 25 mg DAILY PO 12/17/17 09:00 12/17/17 10:04 DC 12/17/17 09:33 25 MG Ondansetron HCl (Zofran Inj) 4 mg STK-MED ONCE .ROUTE 12/16/17 19:26 12/16/17 19:27 DC 12/16/17 19:56 4 MG Acetaminophen 650 mg/Empty Bag 65 ml @ 260 mls/hr Q6H PRN IV 12/16/17 19:30 01/15/18 19:29 12/18/17 07:49 260 MLS/HR Ondansetron HCl 6 mg/Dextrose 53 ml @ 200 mls/hr Q6H PRN IV 12/16/17 19:30 12/17/17 02:31 DC 12/17/17 01:34 200 MLS/HR Pantoprazole Sodium 40 mg/ Syringe 10 ml @ 5 mls/min DAILY@09,21 IV 12/16/17 21:00 12/18/17 08:34 DC 12/17/17 22:20 5 MLS/MIN Metoclopramide HCl (Reglan Inj) 10 mg Q6H PRN IV. 12/16/17 21:00 12/17/17 08:57 DC 12/16/17 21:05 10 MG Sodium Chloride 1,000 ml @ 80 mls/hr [id number] IV 12/16/17 22:45 01/15/18 22:44 12/17/17 23:29 80 MLS/HR Metoclopramide HCl (Reglan Tab) 10 mg ACHS PO 12/17/17 11:00 01/16/18 10:59 12/18/17 11:49 10 MG Prochlorperazine Edisylate 5 mg/ Syringe 5 ml @ 5 mls/min Q6 PRN IV 12/17/17 09:00 01/16/18 08:59 12/17/17 10:14 5 MLS/MIN Aspirin (Aspirin Chew) 81 mg DAILY PO 12/17/17 18:00 12/18/17 08:32 DC 12/17/17 18:10 81 MG Metoprolol Succinate (Toprol Xl Tab) 50 mg DAILY PO 12/18/17 09:00 01/16/18 08:59 12/18/17 10:08 50 MG Potassium Chloride 100 ml @ 100 mls/hr TODAY@1100,1200,1300,1400 IV 12/17/17 11:00 12/17/17 14:59 DC 12/17/17 14:00 100 MLS/HR Heparin Sodium/ Dextrose 500 ml @ 27 mls/hr [id number] IV 12/17/17 18:45 01/16/18 18:44 12/18/17 11:51 27 MLS/HR Heparin Sodium (Porcine) 3000 unit/Syringe 3 ml @ 10 mls/min NOW ONCE IV 12/18/17 02:00 12/18/17 02:01 DC 12/18/17 02:00 10 MLS/MIN Potassium Phosphate 30 mmol/ Sodium Chloride 510 ml @ 88 mls/hr ONE ONCE IV 12/18/17 08:45 12/18/17 14:32 12/18/17 10:07 88 MLS/HR Aspirin (Ecotrin Tab) 81 mg DAILY PO 12/18/17 09:00 01/17/18 08:59 12/18/17 10:07 81 MG Pantoprazole Sodium (Protonix Tab) 40 mg QAM PO 12/18/17 09:00 12/21/17 09:01 12/18/17 10:08 40 MG Objective Vital Signs Date Time Temp Pulse Resp B/P (MAP) Pulse Ox O2 Delivery O2 Flow Rate FiO2 12/18/17 11:00 70 26 145/81 (102) 98 Room Air 12/18/17 10:00 64 18 144/86 (105) 97 Room Air 12/18/17 09:00 70 19 142/78 (99) 97 Room Air 12/18/17 08:00 Room Air 12/18/17 08:00 36.8 64 20 144/80 (101) 95 Room Air 12/18/17 07:00 68 18 127/74 (91) 95 Room Air 12/18/17 06:00 73 18 119/68 (85) 95 Room Air 12/18/17 05:00 36.9 75 14 118/72 (87) 97 Room Air 12/18/17 04:00 36.9 70 16 119/70 (86) 95 Room Air 12/18/17 03:00 84 18 138/82 (100) 96 Room Air 12/18/17 02:00 81 18 130/66 (87) 94 Room Air 12/18/17 01:00 78 16 129/63 (85) 93 Room Air 12/18/17 00:01 37.1 75 18 126/63 (84) 96 Room Air 12/17/17 23:00 83 14 119/62 (81) 96 Room Air 12/17/17 22:00 87 14 112/64 (80) 96 Room Air 12/17/17 21:00 78 12 122/64 (83) 97 Room Air 12/17/17 20:00 93 Room Air 12/17/17 20:00 37.4 80 18 124/65 (84) 93 Room Air 12/17/17 19:00 80 16 111/74 (86) 96 Room Air 12/17/17 18:00 88 24 118/62 (80) 97 Room Air 12/17/17 17:00 36.7 77 18 117/60 (79) 94 Room Air 12/17/17 16:00 36.8 85 22 126/68 (87) 95 Room Air 12/17/17 15:00 36.7 96 21 133/59 (83) 94 Room Air 12/17/17 14:00 36.7 97 23 139/68 (91) 94 Room Air 12/17/17 13:00 36.9 89 17 127/49 (75) 94 Room Air 12/17/17 12:00 36.9 90 17 133/60 (84) 94 Room Air Physical Exam Notes: General: no distress Eyes: normal inspection, PERLL Respiratory: chest non tender, clear to auscultation, normal breath sounds, no respiratory distress, no accessory muscle use Cardiac: regular rate and rhythm, no rub or gallop, no murmur, no edema, no jvd GI/: active bowel sounds, no abd pain or tenderness, soft, non distended Extremities: normal range of motion, normal strength, non tender Neuro/Psych: alert and oriented x 3, normal mood and affect, nystagmus bilaterally, mild dysarthria, mild aphasia, 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 Skin: normal color, dry Laboratory Results Last 24 Hours Test 12/18/17 00:58 12/18/17 07:35 12/18/17 08:48 12/18/17 10:16 Activated Partial Thromboplast Time 45.9 SECONDS 156.4 SECONDS 154.3 SECONDS 74.9 SECONDS Partial Thromboplastin Ratio 1.8 6.0 5.9 2.9 White Blood Count 21.49 K/uL Red Blood Count 4.70 M/uL Hemoglobin 14.7 g/dL Hematocrit 42.6 % Mean Corpuscular Volume 90.6 fL Mean Corpuscular Hemoglobin 31.3 pg Mean Corpuscular Hemoglobin Concent 34.5 g/dl Platelet Count 147 K/uL Mean Platelet Volume 11.8 fL Neutrophils (%) (Auto) 86.8 % Lymphocytes (%) (Auto) 6.9 % Monocytes (%) (Auto) 6.0 % Eosinophils (%) (Auto) 0.0 % Basophils (%) (Auto) 0.0 % Neutrophils # (Auto) 18.64 K/uL Lymphocytes # (Auto) 1.49 K/uL Monocytes # (Auto) 1.29 K/uL Eosinophils # (Auto) 0.00 K/uL Basophils # (Auto) 0.01 K/uL RDW Standard Deviation 44.9 fL RDW Coefficient of Variation 13.4 % Immature Granulocyte % (Auto) 0.3 % Immature Granulocyte # (Auto) 0.06 K/uL Prothrombin Time 21.2 SECONDS 20.9 SECONDS Prothromb Time International Ratio 2.0 2.0 Sodium Level 141 mmol/L Potassium Level 3.2 mmol/L Chloride Level 109 mmol/L Carbon Dioxide Level 24 mmol/L Anion Gap 8.0 mmol/L Blood Urea Nitrogen 18 mg/dl Creatinine 0.73 mg/dl Est Creatinine Clear Calc Drug Dose 128.2 ml/min Estimated GFR () 119.3 Estimated GFR (Non- 103.0 BUN/Creatinine Ratio 24.5 Random Glucose 117 mg/dl Calcium Level 8.2 mg/dl Phosphorus Level 2.1 mg/dl Magnesium Level 2.3 mg/dl Total Bilirubin 0.9 mg/dl Direct Bilirubin 0.3 mg/dl Aspartate Amino Transf (AST/SGOT) 24 U/L Alanine Aminotransferase (ALT/SGPT) 21 U/L Alkaline Phosphatase 64 U/L Total Protein 6.7 gm/dl Albumin 3.6 gm/dl Assessment and Plan Mr. Ríos is a 57 year old man here for CVA CVA requiring TPA - consult prevention rn, continue ICU monitoring - Tpa protocol - CT head showed large evolving right cerebellar infarct as above. Today there is possible petechial hemorrhage on CT, will defer to prevention rn for any intervention - MRI supports diagnosis of cerebellar infarct, MRA head and carotid ultrasound unremarkable - continue home 80 mg atorvastatin - ASA initiated today per ICU - PT/OT/speech - consult neurology - EKG with prolonged QT - resolved - permissive htn - metoprolol increased from 25 back to home dose of 50 mg to help control A.fib which was rapid at times - NIHSS qS and per tPA protocol Afib, mechanical aortic valve, CAD, dyslipidemia, new onset cardiomyopathy - will defer to prevention rn and neurology on timing of coumadin restart - continue metoprolol as above, statin - consult cardiology, patient sees Dr. Valles - Echo showing reduced EF 30%, WMA and hypokinesis - Patient at risk for thrombus with A.fib, mechanical valve and cardiomyopathy - continue heparin gtt Hypokalemia - K 3.2 today - replaced Full code heparin gtt, SCDs
--- NOTE | 2017-12-18 13:12 | Neurology Progress Notes ---
Neurology Progress Note Date of Service Dec 18, 2017. Subjective Follow-up for stroke The patient is a 57-year-old male who was admitted to the hospital in December 16 with a large right cerebellar infarct. He has a history of mechanical aortic valve and is prescribed warfarin although his INR was subtherapeutic. A tele Stroke consultation was obtained and treatment with tPA was recommended. The patient has been neurologically stable although continues to exhibit dysarthria and right segun ataxia. He also has been complaining of some diplopia and has nystagmus on examination. A repeat CT of the head was completed this morning at around 8 a.m.. This study reveals the of all thing large right cerebellar infarct with some subtle mass effect upon the 4th ventricle as well as an area probable petechial hemorrhage. Currently, the patient denies headache or any significant change in his neurologic symptoms as described above. Objective Date Time Temp Pulse Resp B/P (MAP) Pulse Ox O2 Delivery O2 Flow Rate FiO2 12/18/17 12:00 36.7 73 20 147/78 (101) 97 Room Air 12/18/17 11:00 70 26 145/81 (102) 98 Room Air 12/18/17 10:00 64 18 144/86 (105) 97 Room Air 12/18/17 09:00 70 19 142/78 (99) 97 Room Air 12/18/17 08:00 Room Air 12/18/17 08:00 36.8 64 20 144/80 (101) 95 Room Air 12/18/17 07:00 68 18 127/74 (91) 95 Room Air 12/18/17 06:00 73 18 119/68 (85) 95 Room Air 12/18/17 05:00 36.9 75 14 118/72 (87) 97 Room Air 12/18/17 04:00 36.9 70 16 119/70 (86) 95 Room Air 12/18/17 03:00 84 18 138/82 (100) 96 Room Air 12/18/17 02:00 81 18 130/66 (87) 94 Room Air 12/18/17 01:00 78 16 129/63 (85) 93 Room Air 12/18/17 00:01 37.1 75 18 126/63 (84) 96 Room Air 12/17/17 23:00 83 14 119/62 (81) 96 Room Air 7/11/18 22:00 87 14 112/64 (80) 96 Room Air 12/17/17 21:00 78 12 122/64 (83) 97 Room Air 12/17/17 20:00 93 Room Air 12/17/17 20:00 37.4 80 18 124/65 (84) 93 Room Air 12/17/17 19:00 80 16 111/74 (86) 96 Room Air 12/17/17 18:00 88 24 118/62 (80) 97 Room Air 12/17/17 17:00 36.7 77 18 117/60 (79) 94 Room Air 12/17/17 16:00 36.8 85 22 126/68 (87) 95 Room Air 12/17/17 15:00 36.7 96 21 133/59 (83) 94 Room Air 12/17/17 14:00 36.7 97 23 139/68 (91) 94 Room Air 12/17/17 13:00 36.9 89 17 127/49 (75) 94 Room Air Last 24 Hours Test 12/18/17 00:58 12/18/17 07:35 12/18/17 08:48 12/18/17 10:16 Activated Partial Thromboplast Time 45.9 SECONDS 156.4 SECONDS 154.3 SECONDS 74.9 SECONDS Partial Thromboplastin Ratio 1.8 6.0 5.9 2.9 White Blood Count 21.49 K/uL Red Blood Count 4.70 M/uL Hemoglobin 14.7 g/dL Hematocrit 42.6 % Mean Corpuscular Volume 90.6 fL Mean Corpuscular Hemoglobin 31.3 pg Mean Corpuscular Hemoglobin Concent 34.5 g/dl Platelet Count 147 K/uL Mean Platelet Volume 11.8 fL Neutrophils (%) (Auto) 86.8 % Lymphocytes (%) (Auto) 6.9 % Monocytes (%) (Auto) 6.0 % Eosinophils (%) (Auto) 0.0 % Basophils (%) (Auto) 0.0 % Neutrophils # (Auto) 18.64 K/uL Lymphocytes # (Auto) 1.49 K/uL Monocytes # (Auto) 1.29 K/uL Eosinophils # (Auto) 0.00 K/uL Basophils # (Auto) 0.01 K/uL RDW Standard Deviation 44.9 fL RDW Coefficient of Variation 13.4 % Immature Granulocyte % (Auto) 0.3 % Immature Granulocyte # (Auto) 0.06 K/uL Prothrombin Time 21.2 SECONDS 20.9 SECONDS Prothromb Time International Ratio 2.0 2.0 Sodium Level 141 mmol/L Potassium Level 3.2 mmol/L Chloride Level 109 mmol/L Carbon Dioxide Level 24 mmol/L Anion Gap 8.0 mmol/L Blood Urea Nitrogen 18 mg/dl Creatinine 0.73 mg/dl Est Creatinine Clear Calc Drug Dose 128.2 ml/min Estimated GFR () 119.3 Estimated GFR (Non- 103.0 BUN/Creatinine Ratio 24.5 Random Glucose 117 mg/dl Calcium Level 8.2 mg/dl Phosphorus Level 2.1 mg/dl Magnesium Level 2.3 mg/dl Total Bilirubin 0.9 mg/dl Direct Bilirubin 0.3 mg/dl Aspartate Amino Transf (AST/SGOT) 24 U/L Alanine Aminotransferase (ALT/SGPT) 21 U/L Alkaline Phosphatase 64 U/L Total Protein 6.7 gm/dl Albumin 3.6 gm/dl Test 12/18/17 11:45 Bedside Glucose 101 mg/dl Exam: The patient is alert and fully oriented. Speech is dysarthric. He is able to name objects and exhibits intact language comprehension. Visual mcadams full to confrontation. Pupils equal round reactive to light and accommodation. Eye movements are grossly intact although patient does exhibit gaze evoked nystagmus , right greater than left. There is no facial droop. Palate elevates midline. Tongue protrudes midline. Shoulder shrug intact. There is no pronator drift with outstretched arms. However, patient exhibits dysmetria with finger to nose and heel to dunham on the right. Strength is grossly intact. Current Inpatient Medications Medications (Trade) Dose Ordered Sig/Jesus Route Start Time Stop Time Status Last Admin Dose Admin Ioversol (Optiray 320) 100 ml UD PRN IV 12/16/17 14:45 12/20/17 14:44 Miscellaneous Information (Pharmacist Discharge Med Rec Consult) 1 ea UD PRN N/A 12/16/17 18:00 01/15/18 17:59 Miscellaneous Information (Icu Protocol For Hyperglycemia) 1 ea PRN PRN N/A 12/16/17 18:00 12/18/17 17:59 Atorvastatin Calcium (Lipitor Tab) 80 mg QAM PO 12/17/17 09:00 01/16/18 08:59 12/18/17 10:08 80 MG Multivitamins (Multivitamin Tab) 1 tab DAILY PO 12/17/17 09:00 01/16/18 08:59 12/18/17 10:08 1 TAB Acetaminophen 650 mg/Empty Bag 65 ml @ 260 mls/hr Q6H PRN IV 12/16/17 19:30 01/15/18 19:29 12/18/17 07:49 260 MLS/HR Sodium Chloride 1,000 ml @ 80 mls/hr [id number] IV 12/16/17 22:45 01/15/18 22:44 12/18/17 11:54 80 MLS/HR Gadobutrol (Gadavist) 10 mmol UD PRN IV 12/16/17 22:10 12/20/17 22:09 Ondansetron HCl (Zofran Inj) 4 mg Q6H PRN IV. 12/17/17 02:30 01/16/18 02:29 Metoclopramide HCl (Reglan Tab) 10 mg ACHS PO 12/17/17 11:00 01/16/18 10:59 12/18/17 11:49 10 MG Prochlorperazine Edisylate 5 mg/ Syringe 5 ml @ 5 mls/min Q6 PRN IV 12/17/17 09:00 01/16/18 08:59 12/17/17 10:14 5 MLS/MIN Metoprolol Succinate (Toprol Xl Tab) 50 mg DAILY PO 12/18/17 09:00 01/16/18 08:59 12/18/17 10:08 50 MG Heparin Sodium/ Dextrose 500 ml @ 27 mls/hr [id number] IV 12/17/17 18:45 01/16/18 18:44 12/18/17 11:51 27 MLS/HR Warfarin Sodium (Coumadin Tab) 7.5 mg DAILY@16 PO 12/18/17 16:00 01/17/18 15:59 Potassium Phosphate 30 mmol/ Sodium Chloride 510 ml @ 88 mls/hr ONE ONCE IV 12/18/17 08:45 12/18/17 14:32 12/18/17 10:07 88 MLS/HR Aspirin (Ecotrin Tab) 81 mg DAILY PO 12/18/17 09:00 8/11/18 08:59 12/18/17 10:07 81 MG Pantoprazole Sodium (Protonix Tab) 40 mg QAM PO 12/18/17 09:00 12/21/17 09:01 12/18/17 10:08 40 MG Impression Acute right cerebellar infarct resulting in dysarthria and right segun ataxia. There is some associated vasogenic edema and effacement of the 4th ventricle. There also appears to be some mass effect along the posterior aspect of the right anaya which I think may be causing a mild 6th nerve palsy. There is evidence of mild petechial hemorrhage within the infarct as well. Plan Case discussed with dynamite packing machine feeder. Would recommend a repeat CT of the head tonight to ensure stability of the observed petechial hemorrhage, vasogenic edema, and mass effect. Would hold on restarting warfarin at this time. May continue with heparin IV If patient's clinical status deteriorates, however, I would recommend transfer to a tertiary center with neurosurgical backup.
[2017-12-18] MEDS ORDERED: ASPI-461 PO (13:55)
[2017-12-18] MEDS ORDERED: [UNRECOGNIZED DRUG - CODE] (13:55)
--- NOTE | 2017-12-18 13:56 | Discharge Instructions ---
Discharge Instructions Date of Service Dec 18, 2017. 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 Current Hospital Diet Patient's current hospital diet: Full Liquid Diet Discharge Diet Recommended Diet: N/A Pending Studies Studies pending at discharge: no Laboratory Results Hemoglobin A1c Test 12/16/17 14:15 Range/Units Estimated Average Glucose 108 mg/dl Hemoglobin A1c 5.4 4.5-5.6 % Lipid Panel Test 12/17/17 04:29 Range/Units Triglycerides Level 33 0-150 mg/dl Cholesterol Level 122 0-200 mg/dl HDL Cholesterol 45 mg/dl Cholesterol/HDL Ratio 2.7 LDL Cholesterol, Calculated 70 mg/dl Medical Emergencies . Who to Call and When: Medical Emergencies: If at any time you feel your situation is an emergency, please call 911 immediately. . Non-Emergent Contact Non-Emergency issues call your: Primary Care Provider, Neurologist Call Non-Emergent contact if: temperature is above 101, your pain is not controlled . . "Provider Documentation" section prepared by Emmanuel Alicia. .
--- NOTE | 2017-12-18 14:01 | Critical Care Progress Note ---
Critical Care Progress Note Date of Service Dec 18, 2017. Attending Dr. Guillen Subjective The patient continues to have nystagmus, he is developing diplopia as well. He denies any weakness in the periphery or altered sensorium. He is continue to have slurred speech with dysarthria. The patient started on heparin overnight for aortic mechanical valve. Objective Physical exam on 12/18/2017, showed vital signs are stable, blood pressure is 160 /86, heart rate is 84 with occasional PVCs, O2 sats 92% on room air. Respiratory rate is 32. Continue to have nystagmus, no facial droop, slurred speech, the rest of his cranial nerves appears intact, no hemianopsia or visual loss. His motor sensory exam did not reveal any sensorium loss, Babinski's downgoing toes bilaterally, he is 5/54 extremities. Repeat CAT scan today revealed cerebellar edema right sided with mild midline shift. There is petechial hemorrhage as well. Assessment & Plan 1. 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 2. Cardiomyopathy with EF of 30%. 3. Aortic valve replacement with mechanical valve was supposed to be on Coumadin but the patient was noncompliant with it and his INR on admission was 1.2. 4. Hypertension. 5. Diplopia concerning for compression of the 6th nerve. No signs of herniation per CAT scan done today 4 hours ago. Plan: 1. Appreciate Dr. Uriarte input from neurology. 2. Continue with heparin drip. 3. No bolus of heparin was given. 4. Adjust the PTT. 5. The patient has not been taking Coumadin and was not given Coumadin in the hospital, but his INR repeatedly showed 2.0, not explained. 6. Due to the presence of diplopia, cerebellar edema, mild midline shift, compression of the 6th nerve, concerns was the patient could be developing cerebellar edema which could compromise his post CVA symptoms, the patient is not showing signs of herniation at this point. It was felt by neurology and by the team that the patient would benefit from being monitored in a tertiary care center in case he would need neurosurgical intervention. A service that we do not have at our institution. 7. Appreciate Dr. Alicia input in that regard. 8. I will hold off on the Coumadin for now. 9. Continue with heparin drip and adjusted PTT. 10. Echo was done which showed EF of 30% with mechanical valve, could not comment on transmural thrombus. 11. The patient was able to tolerate oral intake. 12. I will hold off on physical therapy at this point. Case discussed with the staff, with Dr. Uriarte, Dr. Alicia, and with the patient in details, appreciate all inputs. All questions been answered. Patient will be transferred to tertiary care center for closer neuro intensive care monitoring. Critical care time spent with the patient was 45 minutes. Data Medications: Current Inpatient Medications Medications (Trade) Dose Ordered Sig/Jesus Route Start Time Stop Time Status Last Admin Dose Admin Ioversol (Optiray 320) 100 ml UD PRN IV 12/16/17 14:45 12/20/17 14:44 Miscellaneous Information (Pharmacist Discharge Med Rec Consult) 1 ea UD PRN N/A 12/16/17 18:00 01/15/18 17:59 Miscellaneous Information (Icu Protocol For Hyperglycemia) 1 ea PRN PRN N/A 12/16/17 18:00 12/18/17 17:59 Atorvastatin Calcium (Lipitor Tab) 80 mg QAM PO 12/17/17 09:00 01/16/18 08:59 12/18/17 10:08 80 MG Multivitamins (Multivitamin Tab) 1 tab DAILY PO 12/17/17 09:00 01/16/18 08:59 12/18/17 10:08 1 TAB Acetaminophen 650 mg/Empty Bag 65 ml @ 260 mls/hr Q6H PRN IV 12/16/17 19:30 01/15/18 19:29 12/18/17 07:49 260 MLS/HR Sodium Chloride 1,000 ml @ 80 mls/hr [id number] IV 12/16/17 22:45 01/15/18 22:44 12/18/17 11:54 80 MLS/HR Gadobutrol (Gadavist) 10 mmol UD PRN IV 12/16/17 22:10 12/20/17 22:09 Ondansetron HCl (Zofran Inj) 4 mg Q6H PRN IV. 12/17/17 02:30 01/16/18 02:29 Metoclopramide HCl (Reglan Tab) 10 mg ACHS PO 12/17/17 11:00 01/16/18 10:59 12/18/17 11:49 10 MG Prochlorperazine Edisylate 5 mg/ Syringe 5 ml @ 5 mls/min Q6 PRN IV 12/17/17 09:00 01/16/18 08:59 12/17/17 10:14 5 MLS/MIN Metoprolol Succinate (Toprol Xl Tab) 50 mg DAILY PO 12/18/17 09:00 01/16/18 08:59 12/18/17 10:08 50 MG Heparin Sodium/ Dextrose 500 ml @ 27 mls/hr [id number] IV 12/17/17 18:45 01/16/18 18:44 12/18/17 11:51 27 MLS/HR Warfarin Sodium (Coumadin Tab) 7.5 mg DAILY@16 PO 12/18/17 16:00 01/17/18 15:59 Potassium Phosphate 30 mmol/ Sodium Chloride 510 ml @ 88 mls/hr ONE ONCE IV 12/18/17 08:45 12/18/17 14:32 12/18/17 10:07 88 MLS/HR Aspirin (Ecotrin Tab) 81 mg DAILY PO 12/18/17 09:00 01/17/18 08:59 12/18/17 10:07 81 MG Pantoprazole Sodium (Protonix Tab) 40 mg QAM PO 12/18/17 09:00 12/21/17 09:01 12/18/17 10:08 40 MG Vital Signs: Date Time Temp Pulse Resp B/P (MAP) Pulse Ox O2 Delivery O2 Flow Rate FiO2 12/18/17 13:05 78 92 12/18/17 12:00 36.7 73 20 147/78 (101) 97 Room Air 12/18/17 11:00 70 26 145/81 (102) 98 Room Air 12/18/17 10:00 64 18 144/86 (105) 97 Room Air 12/18/17 09:00 70 19 142/78 (99) 97 Room Air 12/18/17 08:00 Room Air 12/18/17 08:00 36.8 64 20 144/80 (101) 95 Room Air 12/18/17 07:00 68 18 127/74 (91) 95 Room Air 12/18/17 06:00 73 18 119/68 (85) 95 Room Air 12/18/17 05:00 36.9 75 14 118/72 (87) 97 Room Air 12/18/17 04:00 36.9 70 16 119/70 (86) 95 Room Air 12/18/17 03:00 84 18 138/82 (100) 96 Room Air 12/18/17 02:00 81 18 130/66 (87) 94 Room Air 12/18/17 01:00 78 16 129/63 (85) 93 Room Air 12/18/17 00:01 37.1 75 18 126/63 (84) 96 Room Air 12/17/17 23:00 83 14 119/62 (81) 96 Room Air 12/17/17 22:00 87 14 112/64 (80) 96 Room Air 12/17/17 21:00 78 12 122/64 (83) 97 Room Air 12/17/17 20:00 93 Room Air 12/17/17 20:00 37.4 80 18 124/65 (84) 93 Room Air 12/17/17 19:00 80 16 111/74 (86) 96 Room Air 12/17/17 18:00 88 24 118/62 (80) 97 Room Air 12/17/17 17:00 36.7 77 18 117/60 (79) 94 Room Air 12/17/17 16:00 36.8 85 22 126/68 (87) 95 Room Air 12/17/17 15:00 36.7 96 21 133/59 (83) 94 Room Air 12/17/17 14:00 36.7 97 23 139/68 (91) 94 Room Air Laboratory Results: Last 24 Hours Test 12/18/17 00:58 12/18/17 07:35 12/18/17 08:48 12/18/17 10:16 Activated Partial Thromboplast Time 45.9 SECONDS 156.4 SECONDS 154.3 SECONDS 74.9 SECONDS Partial Thromboplastin Ratio 1.8 6.0 5.9 2.9 White Blood Count 21.49 K/uL Red Blood Count 4.70 M/uL Hemoglobin 14.7 g/dL Hematocrit 42.6 % Mean Corpuscular Volume 90.6 fL Mean Corpuscular Hemoglobin 31.3 pg Mean Corpuscular Hemoglobin Concent 34.5 g/dl Platelet Count 147 K/uL Mean Platelet Volume 11.8 fL Neutrophils (%) (Auto) 86.8 % Lymphocytes (%) (Auto) 6.9 % Monocytes (%) (Auto) 6.0 % Eosinophils (%) (Auto) 0.0 % Basophils (%) (Auto) 0.0 % Neutrophils # (Auto) 18.64 K/uL Lymphocytes # (Auto) 1.49 K/uL Monocytes # (Auto) 1.29 K/uL Eosinophils # (Auto) 0.00 K/uL Basophils # (Auto) 0.01 K/uL RDW Standard Deviation 44.9 fL RDW Coefficient of Variation 13.4 % Immature Granulocyte % (Auto) 0.3 % Immature Granulocyte # (Auto) 0.06 K/uL Prothrombin Time 21.2 SECONDS 20.9 SECONDS Prothromb Time International Ratio 2.0 2.0 Sodium Level 141 mmol/L Potassium Level 3.2 mmol/L Chloride Level 109 mmol/L Carbon Dioxide Level 24 mmol/L Anion Gap 8.0 mmol/L Blood Urea Nitrogen 18 mg/dl Creatinine 0.73 mg/dl Est Creatinine Clear Calc Drug Dose 128.2 ml/min Estimated GFR () 119.3 Estimated GFR (Non- 103.0 BUN/Creatinine Ratio 24.5 Random Glucose 117 mg/dl Calcium Level 8.2 mg/dl Phosphorus Level 2.1 mg/dl Magnesium Level 2.3 mg/dl Total Bilirubin 0.9 mg/dl Direct Bilirubin 0.3 mg/dl Aspartate Amino Transf (AST/SGOT) 24 U/L Alanine Aminotransferase (ALT/SGPT) 21 U/L Alkaline Phosphatase 64 U/L Total Protein 6.7 gm/dl Albumin 3.6 gm/dl Test 12/18/17 11:45 Bedside Glucose 101 mg/dl
[2017-12-18] MEDS ORDERED: WARFARIN SOD 7.5 MG TAB PO SCH (16:00)
--- NOTE | 2017-12-18 17:08 | Discharge Summary ---
Discharge Summary Date of Service Dec 18, 2017. Discharge Summary Admission Date: Dec 16, 2017 at 18:32 Discharge Date: Dec 18, 2017 Discharge Disposition: Acute care facility Principal Diagnosis: Cerebellar infarct Problems/Secondary Diagnoses: (1) ATRIAL FIBRILLATION Status: Chronic (2) CORON ATHEROSCLER NOS TYPE VESSEL, POINT HOPE IRA OR GRAFT Status: Chronic (3) HYPERTENSION NOS Status: Chronic (4) PURE HYPERCHOLESTEROLEM Status: Chronic Immunizations: Have You Had Influenza Vaccine: No History of Tetanus Vaccine?: Yes History of Pneumococcal: No History of Hepatitis B Vaccine: No Procedures: HEAD WITHOUT CONTRAST (CT) CT DOSE: 729.78 mGycm HISTORY: Mental status change stroke TECHNIQUE: Multiaxial CT images of the head were performed without the use of intravenous contrast. A dose lowering technique was utilized adhering to the principles of ALARA. Comparison: 12/17/2017 Findings: The paranasal sinuses and mastoid air cells are clear. The right cerebellar infarct is again noted. Transaxial image 9 suggests the possibility of minimal T healed type hemorrhagic component although a large hemorrhagic component is not seen. There continues to be mild mass effect upon the fourth ventricle with mild displacement of the left. This is unchanged and stable. The ventricular system is midline. No additional new or interval findings are present. Impression: 1. Large geographic right cerebellar infarct. This appears unchanged in terms of size compared to the prior exam. 2. Small band of slightly increased density transaxial image 9. 3. This potentially represents a minimal petechial hemorrhagic component although a significant or large hematoma is not appreciated. 4. Mild left lateral midline shift of the fourth ventricle unchanged from the prior study. Electronically signed by: Enrique Bhandari M.D. 12/18/2017 10:47 AM CHEST ONE VIEW PORTABLE CLINICAL HISTORY: Stroke mental status change COMPARISON STUDY: 12/17/2017 FINDINGS: Mild cardia megaly. Prior median sternotomy. Mild increase in pulmonary vasculature compared to the prior study. IMPRESSION: Mild congestive heart failure. Electronically signed by: Enrique Bhandari M.D. 12/18/2017 7:00 AM MR ANGIOGRAM OF THE BRAIN CLINICAL HISTORY: Stroke. COMPARISON STUDY: MRI of the brain performed concurrently on 12/16/2017. TECHNIQUE: 3-D [id number] MR angiography of the intracranial circulation is performed. 3-D tumble views are created and assessed. IV contrast was not administered for this examination. FINDINGS: There is a left posterior communicating artery. The internal carotid arteries are widely patent bilaterally, as are the anterior and middle cerebral arteries. The vertebrobasilar system and posterior cerebral arteries are widely patent. The vertebral arteries are codominant. There is no aneurysm, high-grade stenosis, or focal vessel cutoff seen throughout the intracranial circulation. IMPRESSION: Unremarkable MR angiogram of the brain. Dictated Date/Time: 12/16/2017 10:51 PM MRI OF THE BRAIN COMBO CLINICAL HISTORY: Strokelike symptoms. COMPARISON STUDY: CT of the brain dated 12/16/2017. TECHNIQUE: MRI of the brain was performed utilizing various T1 and T2-weighted sequences in the axial, sagittal, and coronal planes. Contrast-enhanced sequences were acquired following the administration of 10 cc of Gadavist. FINDINGS: Brain parenchyma: There is a large region of restricted diffusion identified within the right cerebellar hemisphere consistent with acute to subacute ischemia. No additional foci of acute ischemia are identified. There is no hemorrhage or mass effect. A chronic lacunar infarct is also identified in the right cerebellar hemisphere. A small focus of right occipital encephalomalacia is consistent with a remote infarct. There is minimal periventricular microangiopathic disease. No enhancing mass lesion is identified on the postcontrast images. Carmona-white matter differentiation is preserved. No extra-axial fluid collection is seen. The cerebellar tonsils are normal in configuration. Ventricles, sulci, and cisterns: Normal in configuration. Pituitary and sella: Unremarkable. Intracranial vasculature: Normal flow voids are maintained at the skull base. Orbits: The bony orbits are grossly intact. Orbital contents are normal in appearance. Sinuses and mastoids: Clear. Calvarium: Unremarkable. Cervical cord: Partially visualized cervical spinal cord is normal in morphology and signal intensity. IMPRESSION: 1. There is a large acute to subacute infarct involving the right cerebellar hemisphere. 2. No additional foci of acute ischemia are identified. There is no hemorrhage or mass effect. 3. Additional chronic infarcts are seen in the right cerebellar hemisphere and the right occipital lobe. Electronically signed by: Neo Thomas M.D. 12/16/2017 10:50 PM CAROTID DOPPLER NECK ART HISTORY: Mental status change Stroke COMPARISON: None. TECHNIQUE: Real-time, grayscale, and color Doppler sonography of the carotid arteries was performed. Imaging reviewed in the transverse and longitudinal planes. All measurements were calculated based on NASCET criteria. FINDINGS: Antegrade flow is seen in the bilateral vertebral arteries. The brachial pressures are hemodynamically similar. Mild plaque formation bilaterally The peak systolic velocity within the right ICA is 46. The right systolic ratio is 0.7. The peak systolic velocity within the left ICA is 54. The left systolic ratio is 0.7. IMPRESSION: No hemodynamically significant stenosis seen within the carotid arteries. Minimal plaque formation bilaterally Electronically signed by: Enrique Bhandari M.D. 12/17/2017 6:44 AM Consultations: Dr. Uriarte and Alen from neuro Dr. Guillen from ICU Medication Reconciliation New Medications: Heparin Sod (Porcine) In D5w (Heparin Sodium/D5w) 1 Inj Inj 0 UNKNOWN CONTINOUS PRN for jer, #1 BAG Aspirin (Aspirin) 81 Mg Tab 81 MG PO DAILY, #90 TAB Continued Medications: Atorvastatin (Lipitor) 80 Mg Tab 80 MG PO QAM Metoprolol Succinate (Toprol Xl) 50 Mg Tabcr 50 MG PO DAILY Multiple Vitamin (Multivitamin) 1 Tab Tab 1 TAB PO DAILY, TAB Discontinued Medications: Warfarin Sodium (Warfarin Sodium) 5 Mg Tab 15 MG PO 5XWK, TAB TAKE 3 TABLETS (15 MG) EVERY FRIDAY,FRIDAY,FRIDAY,FRIDAY AND FRIDAY OR OTHERWISE DIRECTED TO TAKE BY ANTICOAGULATION CLINIC/MD Warfarin Sodium (Warfarin Sodium) 5 Mg Tab 10 MG PO 2XWK TAKE 2 TABLETS (10 MG) EVERY FRIDAY AND FRIDAY OR OTHERWISE DIRECTED TO TAKE BY ANTICOAGULATION CLINIC/MD Discharge Exam ROS Constitutional: no chills, aches, sweats or fever Respiratory: no sob,cough, sputum, or wheezing Cardiac: no chest pain, palpitations, edema, orthopnea or lightheadedness GI: no abdominal pain, nausea, vomiting, diarrhea or constipation : no dysuria or hesitancy Extremities: no joint pain or weakness Skin: no rash All other systems reviewed and negative PE General: no distress Eyes: normal inspection, PERLL Respiratory: chest non tender, clear to auscultation, normal breath sounds, no respiratory distress, no accessory muscle use Cardiac: regular rate and rhythm, no rub or gallop, systolic murmur, no edema, no jvd GI/: active bowel sounds, no abd pain or tenderness, soft, non distended Extremities: normal range of motion, normal strength, non tender Neuro/Psych: alert and oriented x 3, mild aphasia and dysarthria, no drift, bilateral lateral nystagmus and difficulty tracking, 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 Ríos was at work the day of admission when he began to feel a strange feeling in his left arm as well as lack of balance. However, he began vomiting and upon arriving to the ED that initially appeared to be his main problem as he was not communicating his symptoms. He was sent for a CT and an acute infarct was found in the right occiput. His NIHSS was initially 5 - he had slurred speech, left arm drift, not oriented to date. He was a stroke alert and TPA was given 12/16. He does take Coumadin for a prosthetic aortic valve however he was not therapeutic, INR was 1.2, when asked if he was taking it he states that he was, but might have missed a few doses. CVA requiring TPA - consulted soda flaker, ICU monitoring - Tpa protocol - CT head showed large evolving right cerebellar infarct as above. Today there is possible petechial hemorrhage on CT and mild midline shift - patient will transfer to tertiary care for surgical expertise for cerebral edema which may compressing sixth nerve and causing palsy - MRI supports diagnosis of cerebellar infarct, MRA head and carotid ultrasound unremarkable - continue home 80 mg atorvastatin - continue ASA - PT/OT/speech - consulted neurology - EKG with prolonged QT - resolved - NIHSS qS and per tPA protocol Afib, mechanical aortic valve, CAD, dyslipidemia, new onset cardiomyopathy - Deferred to soda flaker and neurology on timing of Coumadin restart - at time of transfer, patient's INR was 2.0 so Coumadin was not restarted - continue metoprolol, statin - consulted cardiology, patient sees Dr. Valles - Echo showing reduced EF 30%, WMA and hypokinesis - Patient at risk for thrombus with A.fib, mechanical valve and cardiomyopathy - continue heparin gtt - continue home metoprolol Hypokalemia, hypophosphatemia - K 3.2 today - replaced [employer] Physician Supervision Note: I interviewed and examined the patient. Discussed with Angela Pinzon NP and agree with findings and plan as documented in the note. Any exceptions or clarifications are listed here: None Concerns were raised of cerebral edema and possible cranal nerve impingement, I spoke to Dr Osman at [facility] who was stroke alert physician, she accepted the patient for further neurological and neurosurgical expertise. Air ambulance was arranged due to potential brain injury due to recent stroke and evolution of the same, Priti Alicia MD Total Time Spent: Greater than 30 minutes This includes examination of the patient, discharge planning, medication reconciliation, and communication with other providers. Discharge Instructions Please refer to the electronic Patient Visit Report (Discharge Instructions) for additional information.
[2017-12-18 17:18] LABS: PTT PATIENT 95.1 SECONDS (21.0-31.0)
== END 2017-12-18 17:08 | disposition short-term general hospital (02) | DRG 61 ==
LOC: EDBD 14:09 → C.EDC 14:11 → C.MSICU 18:32 → EDBEDREQ 18:40 → ENRESERV 18:41
PROVIDERS: ADMIT Internal Medicine; ATTEND Nurse Practitioner Family
DX: I63.8 Other cerebral infarction (principal); G93.6 Cerebral edema; I61.8 Other nontraumatic intracerebral hemorrhage; R29.705 NIHSS score 5; R47.81 Slurred speech; H55.00 Unspecified nystagmus; R27.0 Ataxia, unspecified; R47.1 Dysarthria and anarthria; R42 Dizziness and giddiness; H49.20 Sixth [abducent] nerve palsy, unspecified eye; H53.2 Diplopia; E87.6 Hypokalemia; E83.39 Other disorders of phosphorus metabolism; R79.1 Abnormal coagulation profile; I48.0 Paroxysmal atrial fibrillation; I11.9 Hypertensive heart disease without heart failure; I25.5 Ischemic cardiomyopathy; I25.10 Atherosclerotic heart disease of native coronary artery without angina pectoris; E78.00 Pure hypercholesterolemia, unspecified; E78.5 Hyperlipidemia, unspecified; Z51.81 Encounter for therapeutic drug level monitoring; Z79.899 Other long term (current) drug therapy; Z79.01 Long term (current) use of anticoagulants; Z91.14 Patient's other noncompliance with medication regimen; Z86.73 Personal history of transient ischemic attack (TIA), and cerebral infarction without residual deficits; Z95.2 Presence of prosthetic heart valve; Z87.74 Personal history of (corrected) congenital malformations of heart and circulatory system; Z95.1 Presence of aortocoronary bypass graft; Z88.8 Allergy status to other drugs, medicaments and biological substances; Z82.3 Family history of stroke; Z82.49 Family history of ischemic heart disease and other diseases of the circulatory system; Z84.1 Family history of disorders of kidney and ureter; Z83.3 Family history of diabetes mellitus

== ENCOUNTER → 2018-01-22 | Outpatient (CLI) | payer BC ==
[~2018-01-22] MED LIST changes: +ASPI-461 PO; +ATOR-26 PO; +METO-217 PO; -TPRSR/50 PO; +[UNRECOGNIZED DRUG - CODE]
[2018-01-22 16:45] LABS: INR 3.7 (0.9-1.1)
== END | disposition home or self-care (01) ==
LOC: C.LAB 15:34
PROVIDERS: ATTEND Internal Medicine Cardiovascular Disease
DX: I35.9 Nonrheumatic aortic valve disorder, unspecified (principal)

== ENCOUNTER 2021-12-05 13:41 | Observation (INO) ==
--- NOTE | 2021-12-05 13:49 | Emergency Department Note ---
Impression & Plan Acute exacerbation of CHF (congestive heart failure), Hx of CABG, S/P AVR (aortic valve replacement), ARIAS (dyspnea on exertion) ED Provider Note NAME: JENNA HERMAN AGE: 61 SEX: M : 1960 ARRIVES VIA: Walk-In INFORMANT: Patient, ED PROVIDER(S): Josemanuel Hermosillo MD Chief Complaint: Shortness of breath, dyspnea on exertion, chest tightness HPI: Patient presents due to concern for shortness of breath. The patient states that shortness of breath has been ongoing and progressively worsening over the last 1 month. The patient had called the office today was recently told to increase his Lasix from once daily to twice daily. The patient has noticed a 10 pound weight gain over the last month. The patient's diet has been more poor as he usually would be cooking dinner but he feels so out of breath that he cannot cook his meals and this is been resorting to take out which is heavy in salt. Patient does state that he has a nonproductive cough. Patient uses medical marijuana but denies any prior smoking history. The patient uses alcohol occasionally. Patient denies any nausea vomiting or diaphoresis. The patient does have chest tightness and states that his most recent episode was today and was with exertion. He denies any nausea vomiting or diarrhea. Patient does follow with Dr. Valles primarily with cardiology and Dr. Hu with [facility] for primary care. ROS: See HPI for pertinent positives and negatives. A total of 10 systems were reviewed and otherwise negative. Past medical history: See below Surgical history: See below Social history: See below Physical Exam: GENERAL: NAD, wearing a mask, non-toxic. EYE EXAM: Normal conjunctiva. PERRL, no anisocoria and EOM's grossly intact w/o pain. OROPHARYNX: Moist mucus membranes. Grossly normal dentition. NECK: Supple, no nuchal rigidity, no adenopathy, non-tender. No signs of meningismus. LUNGS: Decreased breath sounds bilateral bases. Normal chest wall mechanics. HEART: NSR, no MRG. ABDOMEN: Abdomen soft, non-tender, normo-active bowel sounds, no masses, no rebound or guarding. BACK: No CVA TTP. SKIN: No rashes and no bruising. UPPER EXTREMITIES: Upper extremities are grossly normal. LOWER EXTREMITIES: Grossly normal, mild pretibial edema bilaterally without any erythema or calf pain. His compartments are soft and neurovascular intact distally. NEURO EXAM: A&O x3, cranial nerves II-XII grossly intact, normal speech, moves all 4 extremities on command w/o issue. Differential diagnoses: Reactive airway disease, pneumonia, pneumothorax, COPD, CHF, infections, cardiac ischemia, pulmonary embolism, musculoskeletal, gastrointestinal, as well as other pathologies. Course: Patient was seen and evaluated the bedside. Full history physical exam was performed. EKG interpreted by me V paced rhythm with occasional PVC, rate of 76, wide QRS Imaging Studies: See Below Cardiac monitoring: An order was placed for continuous cardiac monitoring. The monitor shows a rate of 77 with paced rhythm. MDM: Patient was seen due to concern for ARIAS and shortness of breath. Blood work is obtained along with an EKG troponin chest x-ray. Patient's history and exam is likely consistent with volume overload. Pacemaker also interrogated. No concerning issues to pacemaker. Patient has a normal white count normal H&H and platelet count. The patient's kidney function is unremarkable. INR borderline supratherapeutic at 3.1. Patient does have a BNP greater than 1700. Troponin is slightly elevated. Likely demand secondary to the patient's history of ischemic cardiomyopathy and heart failure. The patient was ordered IV Lasix 40. I did speak the on-call hospitalist Dr. Villa and the patient was admitted to the medicine service Past Med/Surg History Medical History Anxiety BPH with obstruction/lower urinary tract symptoms CAD (coronary artery disease) F/U DR SAL VALLES S/p CABG x2 vessel 2007; known severe disease of Cx on recent cath CHF (congestive heart failure) CVA (cerebrovascular accident) HX X 2-LAST ONE 2018; hx of cerebellar CVA Depression Dyslipidemia History of aortic valve stenosis S/p AVR- 2007- mechanical - on Coumadin History of nephrolithiasis Insomnia Ischemic cardiomyopathy EF= 25% On anticoagulant therapy Paroxysmal atrial fibrillation Restless leg Sleep apnea BIPAP SOB (shortness of breath) on exertion Up-to-date with immunizations PT RECEIVED 3 DOSES MODERNA VACCINE-DATES NOT AVAILABLE Surgical History History of ankle surgery History of aortic valve replacement with metallic valve History of arthroplasty of knee History of cardiac cath [facility] History of colonoscopy History of elbow surgery Hx of CABG S/P AVR (aortic valve replacement) Family History Mother Diabetes Coronary heart disease Father Coronary heart disease Sister Kidney stone Family hx of colon cancer Social History Smoking Status: Never smoker Second Hand Exposure: Yes (FAMILY); Hx Alcohol Use: No Hx Substance Use: Yes Last Used Substance Other:: once or twice per week- not interested in using here Substance Use Type Other:: MEDICAL MARIJUANA CARD-INH PRN 2-3 X A WEEK Preferred Language: Lithuanian Communication Ability: Effective 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 Beliefs That Will Affect Care: None marital status: Current Living Situation: Other Current Living Situation Comment: Grief couselor [place] (same as emergency cont act) current occupational status: retired Other Information That Helps Us Care for You: Yes (PTSD- door closed and light off) Feels Safe at Home: Yes Safety Concerns: Feels Safe At This Time Assistive Devices: BiPap and Glasses Allergies Allergies Allergy/AdvReac Type Severity Reaction Status Date / Time carvedilol AdvReac Intermediate Unknown Verified 12/05/21 15:15 fentanyl AdvReac Intermediate Chills Verified 12/05/21 15:15 itraconazole AdvReac Intermediate headache Verified 12/05/21 15:15 sertraline AdvReac Intermediate feels nutty Verified 12/05/21 15:15 Home Meds Home Medications Medication Instructions Recorded Confirmed isosorbide mononitrate 30 mg 30 mg PO QAM 06/18/21 12/05/21 tablet,extended release 24 hr lorazepam 1 mg tablet 1 mg PO QID PRN tab 07/02/21 12/05/21 metoprolol succinate 50 mg 50 mg PO DAILY 07/02/21 12/05/21 tablet,extended release 24 hr Previous Rx's Medication Instructions Recorded atorvastatin 80 mg tablet 80 mg PO QAM #90 tab 06/20/21 warfarin 10 mg tablet 10 mg PO .COMPLEX #180 tab 07/31/21 amiodarone 200 mg tablet 200 mg PO DAILY #90 tab 09/04/21 furosemide 40 mg tablet 40 mg PO DAILY #90 tab 09/24/21 sacubitril 49 mg-valsartan 51 mg 1 tab PO BID #60 tab 10/29/21 tablet (Entresto) Results & Data (ED) Vital Signs Vital Signs - 24 hr 12/05/21 13:42 12/05/21 14:11 12/05/21 14:12 Pulse Rate 93 H 73 Pulse Rate [Apical] 70 Pulse Rhythm Regular Pulse Rhythm [Apical] Regular Pulse Strength Normal Respiratory Rate 20 19 Respiratory Effort / Characteristics Non-Labored Spontaneous Non-Labored Respiratory Depth Normal Normal Respiratory Pattern Regular Blood Pressure 130/95 Blood Pressure [Left Arm] 121/84 Blood Pressure Mean 106 Blood Pressure Mean [Left Arm] 96 Blood Pressure Position Sitting Pulse Oximetry 95 94 94 Oxygen Delivery Method Room Air Room Air Room Air Sepsis Recent Fever Within 48 Hours No Sepsis New/Unexplained Change in Mental Status No Sepsis Action Taken by Nursing No Action Required Home Medications Current Medication List: was personally reviewed by me Laboratory Data Attestation: I reviewed the patient's lab results. Result diagrams: 12/06/21 06:32 12/06/21 06:32 Lab Results 12/05/21 12/05/21 12/05/21 Range/Units 14:16 14:16 14:16 WBC 8.65 (4.8-10.8) K/uL RBC 4.42 L (4.7-6.1) M/uL Hgb 14.5 (14.0-18.0) g/dL Hct 42.7 (42-52) % MCV 96.6 (80-100) fL MCH 32.8 (25-34) pg MCHC 34.0 (32-36) g/dL RDW Std Deviation 53.1 H (36.4-46.3) fL RDW Coeff of [place] 14.9 H (11.5-14.5) % Plt Count 171 (130-400) K/uL MPV 12.6 H (7.4-10.4) fL Immature Gran % (Auto) 0.1 % Neut % (Auto) 79.1 % Lymph % (Auto) 13.8 % [place] % (Auto) 6.6 % Eos % (Auto) 0.3 % Baso % (Auto) 0.1 % Neut # (Auto) 6.84 H (1.4-6.5) K/uL Lymph # (Auto) 1.19 L (1.2-3.4) K/uL [place] # (Auto) 0.57 (0.11-0.59) K/uL Eos # (Auto) 0.03 (0-0.5) K/uL Baso # (Auto) 0.01 (0-0.2) K/uL Immature Gran # (Auto) 0.01 (0.00-0.02) K/uL PT Cancelled INR Cancelled Sodium TNP Potassium TNP Chloride 106 (98-107) mmol/L Carbon Dioxide 24 (21-32) mmol/L Anion Gap TNP BUN 19 (6-23) mg/dl Creatinine 1.00 (0.6-1.4) mg/dl Est Cr Clr Drug Dosing 91.3 ml/min Est GFR ( Amer) 93.7 ml/min Est GFR (Non-Af Amer) 80.9 ml/min BUN/Creatinine Ratio 19.0 (10-20) Glucose 111 H (70-99(Fasting)) mg/dl Calcium 9.1 (8.5-10.1) mg/dl Magnesium TNP Total Bilirubin 2.2 H (0.2-1.0) mg/dl AST TNP ALT 37 (7-52) U/L Alkaline Phosphatase 81 (34-104) U/L Troponin I High Sens 22.2 H (0-20) pg/ml B-Natriuretic Peptide (0-100) pg/ml Total Protein 7.0 (6.0-8.3) gm/dl Albumin 4.3 (3.4-5.0) gm/dl Globulin 2.7 (2.5-4.0) gm/dl Albumin/Globulin Ratio 1.6 (0.9-2) SARS-CoV-2, RNA, NAAT (NEGATIVE) 12/05/21 12/05/21 12/05/21 Range/Units 14:16 14:16 15:14 WBC (4.8-10.8) K/uL RBC (4.7-6.1) M/uL Hgb (14.0-18.0) g/dL Hct (42-52) % MCV (80-100) fL MCH (25-34) pg MCHC (32-36) g/dL RDW Std Deviation (36.4-46.3) fL RDW Coeff of [place] (11.5-14.5) % Plt Count (130-400) K/uL MPV (7.4-10.4) fL Immature Gran % (Auto) % Neut % (Auto) % Lymph % (Auto) % [place] % (Auto) % Eos % (Auto) % Baso % (Auto) % Neut # (Auto) (1.4-6.5) K/uL Lymph # (Auto) (1.2-3.4) K/uL [place] # (Auto) (0.11-0.59) K/uL Eos # (Auto) (0-0.5) K/uL Baso # (Auto) (0-0.2) K/uL Immature Gran # (Auto) (0.00-0.02) K/uL PT INR Sodium 139 Potassium 3.7 Chloride (98-107) mmol/L Carbon Dioxide (21-32) mmol/L Anion Gap BUN (6-23) mg/dl Creatinine (0.6-1.4) mg/dl Est Cr Clr Drug Dosing ml/min Est GFR ( Amer) ml/min Est GFR (Non-Af Amer) ml/min BUN/Creatinine Ratio (10-20) Glucose (70-99(Fasting)) mg/dl Calcium (8.5-10.1) mg/dl Magnesium 2.2 Total Bilirubin (0.2-1.0) mg/dl AST 25 ALT (7-52) U/L Alkaline Phosphatase (34-104) U/L Troponin I High Sens (0-20) pg/ml B-Natriuretic Peptide 1708 H (0-100) pg/ml Total Protein (6.0-8.3) gm/dl Albumin (3.4-5.0) gm/dl Globulin (2.5-4.0) gm/dl Albumin/Globulin Ratio (0.9-2) SARS-CoV-2, RNA, NAAT NEGATIVE (NEGATIVE) 12/05/21 Range/Units 15:20 WBC (4.8-10.8) K/uL RBC (4.7-6.1) M/uL Hgb (14.0-18.0) g/dL Hct (42-52) % MCV (80-100) fL MCH (25-34) pg MCHC (32-36) g/dL RDW Std Deviation (36.4-46.3) fL RDW Coeff of [place] (11.5-14.5) % Plt Count (130-400) K/uL MPV (7.4-10.4) fL Immature Gran % (Auto) % Neut % (Auto) % Lymph % (Auto) % [place] % (Auto) % Eos % (Auto) % Baso % (Auto) % Neut # (Auto) (1.4-6.5) K/uL Lymph # (Auto) (1.2-3.4) K/uL [place] # (Auto) (0.11-0.59) K/uL Eos # (Auto) (0-0.5) K/uL Baso # (Auto) (0-0.2) K/uL Immature Gran # (Auto) (0.00-0.02) K/uL PT 30.8 H INR 3.1 H Sodium Potassium Chloride (98-107) mmol/L Carbon Dioxide (21-32) mmol/L Anion Gap BUN (6-23) mg/dl Creatinine (0.6-1.4) mg/dl Est Cr Clr Drug Dosing ml/min Est GFR ( Amer) ml/min Est GFR (Non-Af Amer) ml/min BUN/Creatinine Ratio (10-20) Glucose (70-99(Fasting)) mg/dl Calcium (8.5-10.1) mg/dl Magnesium Total Bilirubin (0.2-1.0) mg/dl AST ALT (7-52) U/L Alkaline Phosphatase (34-104) U/L Troponin I High Sens (0-20) pg/ml B-Natriuretic Peptide (0-100) pg/ml Total Protein (6.0-8.3) gm/dl Albumin (3.4-5.0) gm/dl Globulin (2.5-4.0) gm/dl Albumin/Globulin Ratio (0.9-2) SARS-CoV-2, RNA, NAAT (NEGATIVE) Administered Medications Sacubitril/Valsartan (Valsartan/Sacubitril 51/49 Mg Tab) 1 tab PO BID TRAVIS Stop: 01/04/22 20:59 Last Admin: 12/05/21 20:45 Dose: Not Given Documented by: [id number] Discontinued Medications Furosemide (Furosemide 40 Mg/4 Ml Vial) 40 mg IV ONE ONE Stop: 12/05/21 15:59 Last Admin: 12/05/21 16:20 Dose: 40 mg Documented by: [id number] Potassium Chloride (Potassium Chloride Crtab 20 Meq Tabcr) 20 meq PO NOW STA Stop: 12/05/21 16:32 Last Admin: 12/05/21 16:49 Dose: 20 meq Documented by: [id number] Warfarin Sodium (Warfarin Sod 5 Mg Tab) 5 mg PO [id number] TRAVIS Stop: 01/04/22 20:59 Last Admin: 12/05/21 19:32 Dose: Not Given Documented by: [id number] Imaging Data Radiologist's Impression: Chest X-Ray 12/05/21 13:58 XR chest 1V portable HISTORY: 61 years-old Male Dyspnea acute shortness of breath COMPARISON: Chest radiographs 07/23/2021 TECHNIQUE: Portable AP view of the chest FINDINGS: The cardiac silhouette is enlarged. Prior median sternotomy with cardiac valvular prosthesis. Left subclavian pacer/AICD. Pulmonary vascular congestion with interstitial coarsening. No pneumothorax, large pleural effusion or lobar airspace consolidation. Degenerative changes of the shoulders and spine. IMPRESSION: Cardiomegaly with pulmonary edema. ACT 112: Negative or not required by law. The above report was generated using voice recognition software. It may contain grammatical, syntax or spelling errors. Electronically signed by: Raymundo Bhatia M.D. 12/05/2021 2:22 PM Discharge Plan Visit Data Chief Complaint: Shortness of Breath/Dyspnea Stated Complaint: PACEMAKER, SOB ED Provider: Josemanuel Hermosillo Discharge Problem: Acute exacerbation of CHF (congestive heart failure), Hx of CABG, S/P AVR (aortic valve replacement), ARIAS (dyspnea on exertion) Patient Disposition: Admitted As Inpatient Discharge Instructions Interventions: ED Discharge Assessment Last Done: 12/05/21 17:15 Discharge Problem: Acute exacerbation of CHF (congestive heart failure) Qualifiers: Heart failure type: unspecified Qualified Code(s): I50.9 - Heart failure, unspecified
--- NOTE | 2021-12-05 14:23 | XRay Report ---
XR chest 1V portable HISTORY: 61 years-old Male Dyspnea acute shortness of breath COMPARISON: Chest radiographs 07/23/2021 TECHNIQUE: Portable AP view of the chest FINDINGS: The cardiac silhouette is enlarged. Prior median sternotomy with cardiac valvular prosthesis. Left kaur bclavian pacer/AICD. Pulmonary vascular congestion with interstitial coarsening. No pneumothorax, lar ge pleural effusion or lobar airspace consolidation. Degenerative changes of the shoulders and spine. IMPRESSION: Cardiomegaly with pulmonary edema. ACT 112: Negative or not required by law. The above report was generated using voice recognition software. It may contain grammatical, syntax o r spelling errors. Electronically signed by: Raymundo Bhatia M.D. 12/05/2021 2:22 PM
--- NOTE | 2021-12-05 14:39 | Electrocardiogram Report ---
Test Reason : Blood Pressure : / mmHG Vent. Rate : 076 BPM Atrial Rate : 076 BPM P-R Int : 000 ms QRS Dur : 176 ms QT Int : 464 ms P-R-T Axes : 027 087 219 degrees QTc Int : 522 ms Ventricular-paced rhythm with occasional Premature ventricular complexes Abnormal ECG When compared with ECG of 23-JUL-2021 14:05, Vent. rate has increased BY 8 BPM Confirmed by Kiran Cano ([id number]) on 12/05/2021 2:38:52 PM Referred By: REFERRED SELF Confirmed By:Kiran Cano
[2021-12-05 14:42] LABS: Basophils # (auto) 0.01 K/uL (0-0.2); Basophils % (auto) 0.1 %; Eosinophils # (auto) 0.03 K/uL (0-0.5); Eosinophils % (auto) 0.3 %; Hematocrit (blood only) 42.7 % (42-52); Hemoglobin 14.5 g/dL (14.0-18.0); Immature Granulocytes # (auto) 0.01 K/uL (0.00-0.02); Immature Granulocytes % (auto) 0.1 %; Lymphocytes # (auto) 1.19 K/uL (1.2-3.4); Lymphocytes % (auto) 13.8 %; Mean Corpuscular Hemoglobin 32.8 pg (25-34); Mean Corpuscular Volume 96.6 fL (80-100); Mean Platelet Volume 12.6 fL (7.4-10.4); Monocytes # (auto) 0.57 K/uL (0.11-0.59); Monocytes % (auto) 6.6 %; Neutrophils # (auto) 6.84 K/uL (1.4-6.5); Neutrophils % (auto) 79.1 %; Platelet Count 171 K/uL (130-400); RDW Coefficient of Variation 14.9 % (11.5-14.5); RDW Standard Deviation 53.1 fL (36.4-46.3); Red Blood Count 4.42 M/uL (4.7-6.1); White Blood Count 8.65 K/uL (4.8-10.8)
[2021-12-05 15:01] LABS: Troponin I High Sensitivity 22.2 pg/ml (0-20)
[2021-12-05 15:06] LABS: Alanine Aminotransferase 37 U/L (7-52); Albumin Globulin Ratio 1.6 (0.9-2); Albumin Level 4.3 gm/dl (3.4-5.0); Alkaline Phosphatase 81 U/L (34-104); Bilirubin,Total 2.2 mg/dl (0.2-1.0); Blood Urea Nitrogen 19 mg/dl (6-23); Calcium 9.1 mg/dl (8.5-10.1); Carbon Dioxide 24 mmol/L (21-32); Chloride 106 mmol/L (98-107); Creatinine Clr Calc Pharmacy 91.3 ml/min; Est GFR (African American) 93.7 ml/min; Est GFR (Non-African American) 80.9 ml/min; Globulin 2.7 gm/dl (2.5-4.0); Glucose 111 mg/dl (70-99(Fasting))
[2021-12-05 15:40] LABS: INR 3.1 (0.9-1.1); Prothrombin Time 30.8 Seconds (9.0-12.0)
[2021-12-05 15:54] LABS: Magnesium 2.2 mg/dl (1.7-2.4); Potassium 3.7 mmol/L (3.5-5.1)
[2021-12-05] MEDS ORDERED: FUROSEMIDE 40 MG/4 ML VIAL IV ONE (15:58)
[2021-12-05] MEDS ORDERED: POTASSIUM CHLORIDE CRTAB 20 MEQ TABCR PO STA (16:31)
--- NOTE | 2021-12-05 16:54 | History & Physical Report ---
Date of Service December 05, 2021 Assessment & Plan (1) Acute on chronic systolic heart failure: Plan: Presents with dyspnea on minimal exertion without chest pain - Daily weights - 40mg IV Lasix now likely repeat in the morning - Follow hemodynamics through PM - Continue Entresto, Metoprolol - Consider referral to HF clinic for closer management of symptoms His HScTNI was 22.2 on arrival to the EMD- without symptoms- likely demand elevation from his underlying heart disease (2) ARIAS (dyspnea on exertion): Plan: As above - On going with his chronic depressed EF - HGB normal - fine crackles noted - Therapeutic on his INR (3) CAD (coronary artery disease): Plan: As above 2 vessel bypass history - Continue warfarin - Continue BB - Continue entresto - Continue Statin (4) Sleep apnea: Plan: Continue BiPAP 21/11 Patient brought on machine from home (5) Ischemic cardiomyopathy: Plan: Follows with Dr. Richards - AICD placed in 07/31- - Current sensing and pacing appropriatley (6) Afib: Plan: HX of - currently in AV paced rythm - Continue ammiodarone - Continue Warfarin (7) S/P AVR (aortic valve replacement): Plan: Mechanical valve [facility] - INR therapeutic 3.1 - Continue Warfarin History of Present Illness Primary Care Provider: Keo Hu MD 61 YOM with medical history of: CABG 2 (2007), vessel, Aortic Valve replacement ([facility] mechanical 2007), CVA(right cerebellar with hemorrhagic conversion), HFrEF (25-30%), AFIB, AICD (2021), CAD, Afib, VIANCA (BiPAP110/12), dizziness, BPH. Patient comes to the EMD today for complaints of increase in fatigue with dyspnea with minimal exertion. He reports that this has been ongoing for the past 3-4 months but got worse over the past 2-3 days. Patient was notified by his cardiology service this morning following AICD interrogation noting he had increase in fluid retention. He was instructed to increase his oral Lasix 40mg PO from daily to BID. He does not weigh himself daily. He reports that he has 2-3 pillow orthopnea which has not changed. His legs are not more swollen and he denies his pants fitting tighter. He states that he has not missed any doses of his medications or any dietary indiscretion. Patient is not hypoxic and he is hemodynamically stable. In the EMD the patient has had routine labs performed to include BNP and HScTNI. HScTNI 22 with BNP 1708. Will evaluate patient overnight follow hemodynamics and symptoms. Given 40mg IV now in the EMD and will redose in the morning. COVID test on admission is: NEGATIVE Allergies Allergy/AdvReac Type Severity Reaction Status Date / Time carvedilol AdvReac Intermediate Unknown Verified 12/05/21 15:15 fentanyl AdvReac Intermediate Chills Verified 12/05/21 15:15 itraconazole AdvReac Intermediate headache Verified 12/05/21 15:15 sertraline AdvReac Intermediate feels nutty Verified 12/05/21 15:15 Home Medications Medication Instructions Recorded Confirmed Type isosorbide mononitrate 30 mg 30 mg PO QAM 06/18/21 12/05/21 History tablet,extended release 24 hr atorvastatin 80 mg tablet 80 mg PO QAM #90 tab 06/20/21 12/05/21 Rx lorazepam 1 mg tablet 1 mg PO QID PRN tab 07/02/21 12/05/21 History metoprolol succinate 50 mg 50 mg PO DAILY 07/02/21 12/05/21 History tablet,extended release 24 hr warfarin 10 mg tablet 10 mg PO .COMPLEX #180 tab 07/31/21 12/05/21 Rx amiodarone 200 mg tablet 200 mg PO DAILY #90 tab 09/04/21 12/05/21 Rx furosemide 40 mg tablet 40 mg PO DAILY #90 tab 09/24/21 12/05/21 Rx sacubitril 49 mg-valsartan 51 mg 1 tab PO BID #60 tab 10/29/21 12/05/21 Rx tablet (Entresto) Past Med/Surg History Medical History Anxiety BPH with obstruction/lower urinary tract symptoms CAD (coronary artery disease) F/U DR SAL RICHARDS S/p CABG x2 vessel 2007; known severe disease of Cx on recent cath CHF (congestive heart failure) CVA (cerebrovascular accident) HX X 2-LAST ONE 2017; hx of cerebellar CVA Depression Dyslipidemia History of aortic valve stenosis S/p AVR- 2007- mechanical - on Coumadin History of nephrolithiasis Insomnia Ischemic cardiomyopathy EF= 25% On anticoagulant therapy Paroxysmal atrial fibrillation Restless leg Sleep apnea BIPAP SOB (shortness of breath) on exertion Up-to-date with immunizations PT RECEIVED 3 DOSES MODERNA VACCINE-DATES NOT AVAILABLE Surgical History History of ankle surgery History of aortic valve replacement with metallic valve History of arthroplasty of knee History of cardiac cath [facility] History of colonoscopy History of elbow surgery Hx of CABG S/P AVR (aortic valve replacement) Family History Mother Diabetes Coronary heart disease Father Coronary heart disease Sister Kidney stone Family hx of colon cancer Social History Smoking Status: Never smoker Second Hand Exposure: Yes (FAMILY); Hx Alcohol Use: No Hx Substance Use: Yes Last Used Substance Other:: once or twice per week- not interested in using here Substance Use Type Other:: MEDICAL MARIJUANA CARD-INH PRN 2-3 X A WEEK Preferred Language: Malay Communication Ability: Effective Surgical Scheduler Required: No Beliefs That Will Affect Care: None marital status: Current Living Situation: Other Current Living Situation Comment: Grief couselor Pola (same as emergency contact) current occupational status: retired Other Information That Helps Us Care for You: Yes (PTSD- door closed and light off) Feels Safe at Home: Yes Safety Concerns: Feels Safe At This Time Assistive Devices: BiPap and Glasses Review of Systems Review of Systems: REVIEW OF SYSTEMS: Constitutional: (+) fatigue, No fever, sweats or chills Eyes: No diplopia, no worsening or blurred vision ENT: normal hearing, no trouble swallowing Respiratory: No cough, sputum, dyspnea at rest or on exertion Cardiovascular: No chest pain, tightness or palpitations Abdomen: No pain, nausea, vomiting, diarrhea or constipation Musculoskeletal: No joint pain, calf pain, swelling Neurologic: No weakness, numbness/tingling, or balance problems Psychiatric: No anxiety or depression Skin: No rash or itch Physical Exam Physical Exam: PHYSICAL EXAM: General: awake, alert, no apparent distress Head: Normocephalic, atraumatic ENT: PERRL, EOMI, no pharyngeal exudate, mucous membranes moist Neuro: AAO x 3, speech clear and appropriate, strength intact bilaterally 5/5, sensation intact and equal all extremities and dermatomes, no pronator drift Chest: equal rise and fall of the chest, no accessory muscle use, no heaves or thrills, scattered fine crackles, on room air Cardiac: Regular rate and rhythm, telemetry reviewed, skin warm dry, cap refill <3 seconds, peripheral pulses +2 no JVD, no murmur, no edema GI: NABS x 4 quadrants, soft, nontender to palpation, no rebound, guarding or tenderness : Spontaneously voiding, no pain, no CVA tenderness, Extremities: Normal inspection, no peripheral edema or erythema, calfs nontender to palpation Psych: Normal mood and affect Skin: no rash or erythema Results & Data Results & Data ([facility]) Vital Signs (Past 12 Hours) Vital Signs Pulse Pulse Resp BP BP Pulse Ox 12/05/21 14:12 73 70 19 121/84 94 12/05/21 14:11 94 12/05/21 13:42 93 H 20 130/95 95 Laboratory Results Abnormal lab results 12/05/21 12/05/21 12/05/21 Range/Units 14:16 14:16 14:16 RBC 4.42 L (4.7-6.1) M/uL RDW Std Deviation 53.1 H (36.4-46.3) fL RDW Coeff of [place] 14.9 H (11.5-14.5) % MPV 12.6 H (7.4-10.4) fL Neut # (Auto) 6.84 H (1.4-6.5) K/uL Lymph # (Auto) 1.19 L (1.2-3.4) K/uL PT (9.0-12.0) Seconds INR (0.9-1.1) Glucose 111 H (70-99(Fasting)) mg/dl Total Bilirubin 2.2 H (0.2-1.0) mg/dl Troponin I High Sens 22.2 H (0-20) pg/ml B-Natriuretic Peptide 1708 H (0-100) pg/ml 12/05/21 Range/Units 15:20 RBC (4.7-6.1) M/uL RDW Std Deviation (36.4-46.3) fL RDW Coeff of [place] (11.5-14.5) % MPV (7.4-10.4) fL Neut # (Auto) (1.4-6.5) K/uL Lymph # (Auto) (1.2-3.4) K/uL PT 30.8 H (9.0-12.0) Seconds INR 3.1 H (0.9-1.1) Glucose (70-99(Fasting)) mg/dl Total Bilirubin (0.2-1.0) mg/dl Troponin I High Sens (0-20) pg/ml B-Natriuretic Peptide (0-100) pg/ml Diagnostic Findings Chest X-Ray 12/05/21 13:58 XR chest 1V portable HISTORY: 61 years-old Male Dyspnea acute shortness of breath COMPARISON: Chest radiographs 07/23/2021 TECHNIQUE: Portable AP view of the chest FINDINGS: The cardiac silhouette is enlarged. Prior median sternotomy with cardiac valvular prosthesis. Left subclavian pacer/AICD. Pulmonary vascular congestion with interstitial coarsening. No pneumothorax, large pleural effusion or lobar airspace consolidation. Degenerative changes of the shoulders and spine. IMPRESSION: Cardiomegaly with pulmonary edema. ACT 112: Negative or not required by law. The above report was generated using voice recognition software. It may contain grammatical, syntax or spelling errors. Electronically signed by: Raymundo Bhatia M.D. 12/05/2021 2:22 PM Medications Administered Home Medications isosorbide mononitrate 30 mg tablet,extended release 24 hr 30 mg PO QAM 06/18/21 [History Confirmed 12/05/21] atorvastatin 80 mg tablet 80 mg PO QAM #90 tab 06/20/21 [Rx Confirmed 12/05/21] lorazepam 1 mg tablet 1 mg PO QID PRN tab 07/02/21 [History Confirmed 12/05/21] metoprolol succinate 50 mg tablet,extended release 24 hr 50 mg PO DAILY 07/02/21 [History Confirmed 12/05/21] warfarin 10 mg tablet 10 mg PO .COMPLEX #180 tab 07/31/21 [Rx Confirmed 12/05/21] amiodarone 200 mg tablet 200 mg PO DAILY #90 tab 09/04/21 [Rx Confirmed 12/05/21] furosemide 40 mg tablet 40 mg PO DAILY #90 tab 09/24/21 [Rx Confirmed 12/05/21] sacubitril 49 mg-valsartan 51 mg tablet (Entresto) 1 tab PO BID #60 tab 10/29/21 [Rx Confirmed 12/05/21] Discontinued Medications Furosemide (Furosemide 40 Mg/4 Ml Vial) 40 mg IV ONE ONE Stop: 12/05/21 15:59 Last Admin: 12/05/21 16:20 Dose: 40 mg Documented by: [id number] Potassium Chloride (Potassium Chloride Crtab 20 Meq Tabcr) 20 meq PO NOW STA Stop: 12/05/21 16:32 Last Admin: 12/05/21 16:49 Dose: 20 meq Documented by: [id number] ECG Additional Comments: Ventricular-paced rhythm with occasional Premature ventricular complexes Abnormal ECG When compared with ECG of 23-JUL-2021 14:05, Vent. rate has increased BY 8 BPM Confirmed by Kiran Cano ([id number]) on 12/05/2021 2:38:52 PM Code Status & VTE Plan Code Status CODE: FULL VTE: SCDS, Coumadin VTE Prophylaxis Plan VTE Prophylaxis will be ordered: Yes Supervising Physician Co-Signing Physician Notes I personally saw and examined the patient. I verified all kohli points and agree with FABIÁN Palomino with the following exceptions and/or additions: 61 year old presents with acute on chronic fatigue is his main complaint but also non-associated. He has mostly been living in the dark due to vision sensitivity although reports this is chronic rather than any acute change. Fatigue getting worse over the year but much worse in the last month. O/E A&O x3, No acute respiratory distress, Leg edema 2+ to knees b/l equal A/P Acute on chronic HF with reduced EF - unclear if his fatigue can be purely related and he does not appear. Agree with Lasix 40mg IV daily. Optimize fluid status and may need further workup if fatigue still remains but given significant cardiac history has occurred over the same time frame I suspect his fatigue is related to this. PG Care Time/CCT Total # of Minutes Spent Total Time Spent with Patient: Total time spent is greater than 50% in coordination of care (as documented) at patient's floor/unit and/or counseling patient: Coding Level of Care Code INT OBSERVATION CARE 50M LVL 2 Diagnoses CAD (coronary artery disease) I25.10 ARIAS (dyspnea on exertion) R06.00 Sleep apnea G47.30 Ischemic cardiomyopathy I25.5 Acute on chronic systolic heart failure I50.23 Afib I48.91 S/P AVR (aortic valve replacement) Z95.2
[2021-12-05] MEDS ORDERED: LORazepam 1 MG TAB PO PRN (18:35)
[2021-12-05] MEDS: VALSARTAN/SACUBITRIL 51/49 MG TAB PO SCH (20:45)
[2021-12-05] MEDS ORDERED: WARFARIN SOD 5 MG TAB PO SCH (21:00)
[2021-12-06 07:16] LABS: Basophils # (auto) 0.01 K/uL (0-0.2); Basophils % (auto) 0.1 %; Eosinophils # (auto) 0.03 K/uL (0-0.5); Eosinophils % (auto) 0.3 %; Hematocrit (blood only) 39.2 % (42-52); Immature Granulocytes # (auto) 0.02 K/uL (0.00-0.02); Immature Granulocytes % (auto) 0.2 %; Lymphocytes # (auto) 0.93 K/uL (1.2-3.4); Mean Corpuscular Hemoglobin 31.6 pg (25-34); Mean Corpuscular Hgb Conc 33.2 g/dL (32-36); Mean Corpuscular Volume 95.4 fL (80-100); Mean Platelet Volume 12.9 fL (7.4-10.4); Monocytes # (auto) 0.66 K/uL (0.11-0.59); Monocytes % (auto) 7.1 %; Neutrophils # (auto) 7.63 K/uL (1.4-6.5); Neutrophils % (auto) 82.3 %; Platelet Count 150 K/uL (130-400); RDW Standard Deviation 52.6 fL (36.4-46.3); Red Blood Count 4.11 M/uL (4.7-6.1); White Blood Count 9.28 K/uL (4.8-10.8)
[2021-12-06 07:40] LABS: BUN Creatinine Ratio 19.6 (10-20); Calcium 8.4 mg/dl (8.5-10.1); Creatinine Clr Calc Pharmacy 80.3 ml/min; Est GFR (African American) 81.7 ml/min; Est GFR (Non-African American) 70.5 ml/min; Magnesium 2.1 mg/dl (1.7-2.4); Potassium 3.5 mmol/L (3.5-5.1)
[2021-12-06 07:42] LABS: Troponin I High Sensitivity 31.6 pg/ml (0-20)
[2021-12-06 07:58] LABS: INR 2.1 (0.9-1.1); Prothrombin Time 21.5 Seconds (9.0-12.0)
[2021-12-06] MEDS ORDERED: POTASSIUM CHLORIDE CRTAB 20 MEQ TABCR PO STA (08:10)
[2021-12-06] MEDS ORDERED: FUROSEMIDE 40 MG/4 ML VIAL IV ONE (08:10)
--- NOTE | 2021-12-06 08:48 | XRay Report ---
XR chest 1V portable HISTORY: 61 years-old Male CHF acute shortness of breath with congestive heart failure COMPARISON: Chest radiograph 12/05/2021 TECHNIQUE: Portable AP view of the chest FINDINGS: Cardiac silhouette is enlarged. Prior median sternotomy with cardiac valvular prosthesis. Left subcla vian pacer/AICD. There is no pneumothorax, large pleural effusion or lobar airspace consolidation. Pe rivascular congestion with interstitial coarsening is stable from prior. The bones appear grossly int act. IMPRESSION: Stable exam with cardiomegaly and pulmonary edema. ACT 112: Negative or not required by law. The above report was generated using voice recognition software. It may contain grammatical, syntax o r spelling errors. Electronically signed by: Raymundo Bhatia M.D. 12/06/2021 8:47 AM
[2021-12-06] MEDS: ATORVASTATIN 40 MG TAB PO SCH (09:10)
[2021-12-06] MEDS: ISOSORBIDE MONO EXTENDED REL 30 MG TABCR PO SCH (09:10)
[2021-12-06] MEDS: AMIODARONE 200 MG TAB PO SCH (09:10)
[2021-12-06] MEDS: METOPROLOL SUCC 50MG EXT REL TAB PO SCH (09:11)
[2021-12-06] MEDS: VALSARTAN/SACUBITRIL 51/49 MG TAB PO SCH (09:11)
--- NOTE | 2021-12-06 10:51 | Cardiology Consultation ---
Date of Consultation December 06, 2021 Assessment & Plan (1) ARIAS (dyspnea on exertion): (2) Acute on chronic systolic heart failure: (3) Ischemic cardiomyopathy: (4) History of aortic valve replacement with metallic valve: (5) Hx of CABG: (6) Presence of biventricular implantable cardioverter-defibrillator (ICD): (7) Paroxysmal atrial fibrillation: (8) Anticoagulant long-term use: 61-year-old man with ischemic cardiomyopathy (EF<15% prior to recent biventricular pacemaker placement)/mechanical AVR/CABG/paroxysmal afib who presents with progressive fatigue and dyspnea, some degree of pulmonary congestion on chest x-ray, but no evidence of substantial volume overload on exam (neck veins unremarkable, no edema, weight at the low end of his usual range). These findings suggest low output heart failure, possibly a representation of end-stage cardiomyopathy. Will check repeat echocardiogram, his ejection fraction was abysmal earlier this year but may have improved with the placement of biventricular pacemaker. If systolic function remains profoundly reduced, medical management could be pursued with aggressive afterload reduction, but LVAD or heart transplant may ultimately need to be a consideration as well. He does not appear hypovolemic, therefore current inpatient IV furosemide dosing (40 mg twice daily) does seem appropriate. Recommend increasing his Entresto from 51/49mg to 97/103 mg to further decrease afterload, will need to monitor for hypotension since blood pressure has been borderline in the past. Agree that minimal troponin elevation likely demand ischemia, this does not appear to be an acute coronary event. Will discuss patient's current status with Dr. Richards and Dr. Multani, who both follow him routinely, for further recommendations and longer-term plan. History of Present Illness Reason for Consultation: CHF Requesting Physician: Wagner Johnston MD Attending Physician: Wagner Johnston MD History of Present Illness 61-year-old man with complex cardiac history (followed by Dr. Richards and Dr. Multani) admitted 12/05/2021 with progressive fatigue and dyspnea on exertion which is somewhat chronic but markedly increased over the 2 days prior to admi ssion. His cardiovascular history includes: -CAD with two-vessel CABG 2007 -[facility] [facility] mechanical aortic valve replacement 2007 (chronic warfarin anticoagulation) -Biventricular ICD placement July 2021 -Paroxysmal atrial fibrillation (amiodarone/warfarin) -Ischemic cardiomyopathy with episodic congestive heart failure (EF June 2021 less than 15%, prior to biventricular pacemaker) -Right cerebellar CVA with hemorrhagic conversion 2017 He felt fatigued at the time of an office visit with Dr. Multani earlier this week, later that day he overexerted himself in the following 2 days he notes f eeling profoundly fatigued and complains of experiencing dyspnea walking 30 yards to his car and back. He has chronic orthopnea which is unchanged. He has chronically recurring chest discomfort which is nonexertional and not associated with other symptoms, he had several of his "usual" episodes in recent days but nothing out of the ordinary. He habitually sleeps very poorly due to PTSD and sleep apnea (on BiPAP), he notes he again slept poorly last night but states that his breathing was "slightly better" after dose of IV Lasix in the ER. He is not uncomfortable at rest, but notes that with minimal activity he becomes breathless. No chest pain, palpitations, or other complaints at rest currently. Allergies Allergy/AdvReac Type Severity Reaction Status Date / Time carvedilol AdvReac Intermediate Unknown Verified 12/05/21 15:15 fentanyl AdvReac Intermediate Chills Verified 12/05/21 15:15 itraconazole AdvReac Intermediate headache Verified 12/05/21 15:15 sertraline AdvReac Intermediate feels nutty Verified 12/05/21 15:15 Home Medications Medication Instructions Recorded Confirmed Type isosorbide mononitrate 30 mg 30 mg PO QAM 06/18/21 12/05/21 History tablet,extended release 24 hr atorvastatin 80 mg tablet 80 mg PO QAM #90 tab 06/20/21 12/05/21 Rx lorazepam 1 mg tablet 1 mg PO QID PRN tab 07/02/21 12/05/21 History metoprolol succinate 50 mg 50 mg PO DAILY 07/02/21 12/05/21 History tablet,extended release 24 hr warfarin 10 mg tablet 10 mg PO .COMPLEX #180 tab 07/31/21 12/05/21 Rx amiodarone 200 mg tablet 200 mg PO DAILY #90 tab 09/04/21 12/05/21 Rx furosemide 40 mg tablet 40 mg PO DAILY #90 tab 09/24/21 12/05/21 Rx sacubitril 49 mg-valsartan 51 mg 1 tab PO BID #60 tab 10/29/21 12/05/21 Rx tablet (Entresto) Patient History Medical History (Updated 12/06/21 @ 11:35 by Kiran Cano MD) Anxiety BPH with obstruction/lower urinary tract symptoms CAD (coronary artery disease) F/U DR SAL RICHARDS S/p CABG x2 vessel 2007; known severe disease of Cx on recent cath CHF (congestive heart failure) CVA (cerebrovascular accident) (2017) Depression Dyslipidemia History of aortic valve stenosis S/p AVR- 2007- mechanical - on Coumadin History of nephrolithiasis Insomnia Ischemic cardiomyopathy EF= 25% On anticoagulant therapy Paroxysmal atrial fibrillation Restless leg Sleep apnea BIPAP SOB (shortness of breath) on exertion Up-to-date with immunizations PT RECEIVED 3 DOSES MODERNA VACCINE-DATES NOT AVAILABLE Surgical History History of ankle surgery History of aortic valve replacement with metallic valve (2007) History of arthroplasty of knee History of cardiac cath [facility] History of colonoscopy History of elbow surgery Hx of CABG Family History Mother Diabetes Coronary heart disease Father Coronary heart disease Sister Kidney stone Family hx of colon cancer Social History Smoking Status: Never smoker Second Hand Exposure: Yes (FAMILY); Hx Alcohol Use: No Hx Substance Use: Yes Last Used Substance Other:: once or twice per week- not interested in using here Substance Use Type Other:: MEDICAL MARIJUANA CARD-INH PRN 2-3 X A WEEK Preferred Language: Belgian Communication Ability: Effective Mechanical Supervisor Required: No Beliefs That Will Affect Care: None marital status: Current Living Situation: Other Current Living Situation Comment: Grief couselor Pola (same as emergency contact) current occupational status: retired Other Information That Helps Us Care for You: Yes (PTSD- door closed and light off) Feels Safe at Home: Yes Safety Concerns: Feels Safe At This Time Assistive Devices: CPAP Assistive Devices Comment: Cpap supplied through [facility] Physical Exam Physical Exam: Normal habitus adult white male in no distress. Current weight 210 pounds (range over the past year 212-234 pounds). BP normotensive. Pulse 60 bpm and regular. Skin: No ecchymoses or generalized lesions. HEENT: unremarkable. Neck: Jugular venous pulse at our just above the clavicle at 90 degrees, no carotid bruits. Lungs: Faint crackles both lung mcadams, no wheezing even on forced exhalation. No accessory muscle use. Cardiac: regular rhythm, increased aortic and pulmonic closure sounds, 2/6 apical holosystolic murmur rating to the axilla, no diastolic murmur or rub. Abdomen: benign. Extremities: no edema, pulses intact. Neurologic: normal affect and conversation, grossly nonfocal. Results & Data ([facility]) Vital Signs (Past 12 Hours) Vital Signs Temp Pulse Pulse Resp BP Pulse Ox 12/06/21 07:26 61 12/06/21 07:08 97.9 F 67 18 124/74 95 12/06/21 03:17 99.1 F 68 18 116/71 95 12/06/21 00:23 76 12/05/21 22:52 99.7 F H 73 20 126/75 96 Laboratory Results INR therapeutic at 2.1. Normal electrolytes with potassium 3.5, BUN 22, creatinine 1.12. High-sensitivity troponin relatively flat pattern 22-32-31 BNP 1708 (historical range [id number]) Diagnostic Findings ECG showed sinus rhythm with biventricular pacing and occasional PVC. Telemetry showed appropriate pacing without significant dysrhythmia. Chest x-ray yesterday and today showed cardiomegaly with pulmonary vascular congestion but no effusions. Echocardiogram June 2021 (prior to biventricular pacemaker) showed EF less than 15% with mid to distal septal and apical akinesis and all other segments hypokinetic. Mild [place] valvular regurgitation. Properly functioning mechanical aortic valve. PG Care Time/CCT Total # of Minutes Spent Total Time Spent with Patient: Total time spent is greater than 50% in coordination of care (as documented) at patient's floor/unit and/or counseling patient: Coding Level of Care Code 58737 Inpt Consult Level 4 Diagnoses History of aortic valve replacement with metallic valve Z95.4 Hx of CABG Z95.1 Presence of biventricular implantable cardioverter-defibrillator (ICD) Z95.810 Ischemic cardiomyopathy I25.5 Paroxysmal atrial fibrillation I48.0 Anticoagulant long-term use Z79.01 ARIAS (dyspnea on exertion) R06.00 Acute on chronic systolic heart failure I50.23
--- NOTE | 2021-12-06 11:27 | Hospitalist Progress Note ---
Date of Service December 06, 2021 Assessment & Plan (1) Acute on chronic systolic heart failure: Plan: Continue parenteral Lasix diuresis and monitor intake and output. Await cardiology consultation. Repeat chest x-ray today, December 06. Continue Entresto, Metoprolol (2) ARIAS (dyspnea on exertion): Plan: Due to CHF. Should resolve with treatment of congestive heart failure. (3) CAD (coronary artery disease): Plan: 2 vessel bypass history. Stable. Continue current medical management (4) Sleep apnea: Plan: Continue BiPAP 21/11 Patient brought his machine from home (5) Ischemic cardiomyopathy: Plan: Follows with Dr. Valles - AICD placed in 07/31- - Current sensing and pacing appropriatlely (6) Afib: Plan: HX of - currently in AV paced rythm - Continue ammiodarone - Continue Warfarin. Daily INR (7) S/P AVR (aortic valve replacement): Plan: Mechanical valve [facility] - INR therapeutic on admission. Daily INR - Continue Warfarin Plan: Eventual discharge to home Admission and Anticipated Discharge Date Admission Date: December 05, 2021 Subjective Alert and oriented. No distress. Good diuretic response with IV Lasix which will be continued. Awaiting cardiology consultation. Potassium replacement underway. Review of Systems Review of Systems: Constitutional-no fever or chills ENT-no blurred vision, no double vision, no epistaxis, no sore throat Respiratory-no cough, no wheezing. Dyspnea on exertion Cardiac-no palpitations, no chest pain, no syncope. Orthopnea noted GI-no nausea, vomiting, diarrhea, melena, hematochezia -no urinary retention, no urinary incontinence, no dysuria, no hematuria Musculoskeletal-no joint pain, no muscle tenderness Skin-no bruising, no rashes, no pruritus Neuro-no isolated weakness, no paresthesia, no weakness Psych-no depression, no anxiety Physical Exam Physical Exam: General-alert and oriented x3, no fevers, no chills HEENT-head atraumatic and normocephalic, TMs intact bilaterally, pupils equal and reactive to light, extraocular muscles intact Neck-no lymphadenopathy or thyromegaly, trachea midline Chest-bilateral inspiratory rales. No wheezing. No dullness Cardiac-regular rate and rhythm, normal S1 and S2. Systolic aortic valve murmur Abdomen-normal bowel sounds, nontender, no hepatosplenomegaly Extremities-no cyanosis, clubbing, or edema Neuro-cranial nerves II through XII intact, motor and sensory function within normal limits, strength symmetrical , no focal deficits Psych-normal affect, normal mood Results & Data Results & Data ([facility]) Vital Signs (Past 12 Hours) Vital Signs Temp Pulse Pulse Resp BP Pulse Ox 12/06/21 07:26 61 12/06/21 07:08 36.6 C 67 18 124/74 95 12/06/21 03:17 37.3 C 68 18 116/71 95 12/06/21 00:23 76 Laboratory Results 12/06/21 06:32 12/06/21 06:32 PG Care Time/CCT Total # of Minutes Spent Total Time Spent with Patient: Total time spent is greater than 50% in coordination of care (as documented) at patient's floor/unit and/or counseling patient: Coding Level of Care Code 09087 Subseq Hosp Care Lvl 3 Diagnoses Acute on chronic systolic heart failure I50.23 ARIAS (dyspnea on exertion) R06.00 CAD (coronary artery disease) I25.10 Sleep apnea G47.30 Ischemic cardiomyopathy I25.5 Afib I48.91 S/P AVR (aortic valve replacement) Z95.2
--- NOTE | 2021-12-06 15:15 | XCELERA ---
[id number]
[2021-12-06] MEDS ORDERED: WARFARIN SOD 5 MG TAB PO SCH (16:00)
[2021-12-06] MEDS ORDERED: WARFARIN SOD 10 MG TAB PO SCH (16:00)
[2021-12-06] MEDS: VALSARTAN/SACUBITRIL 103/97MG TAB PO SCH (20:35)
[2021-12-06] MEDS: FUROSEMIDE 40 MG/4 ML VIAL IV SCH (20:36)
[2021-12-06] MEDS ORDERED: MELATONIN 3 MG TAB PO PRN (20:57)
[2021-12-07 07:48] LABS: Basophils # (auto) 0.01 K/uL (0-0.2); Basophils % (auto) 0.1 %; Eosinophils # (auto) 0.05 K/uL (0-0.5); Eosinophils % (auto) 0.6 %; Hematocrit (blood only) 39.7 % (42-52); Hemoglobin 13.6 g/dL (14.0-18.0); Immature Granulocytes # (auto) 0.01 K/uL (0.00-0.02); Immature Granulocytes % (auto) 0.1 %; Lymphocytes # (auto) 0.94 K/uL (1.2-3.4); Lymphocytes % (auto) 11.8 %; Mean Corpuscular Hemoglobin 32.8 pg (25-34); Mean Corpuscular Hgb Conc 34.3 g/dL (32-36); Mean Corpuscular Volume 95.7 fL (80-100); Mean Platelet Volume 12.7 fL (7.4-10.4); Monocytes # (auto) 0.44 K/uL (0.11-0.59); Monocytes % (auto) 5.5 %; Neutrophils # (auto) 6.52 K/uL (1.4-6.5); Neutrophils % (auto) 81.9 %; Platelet Count 154 K/uL (130-400); RDW Coefficient of Variation 14.6 % (11.5-14.5); RDW Standard Deviation 51.5 fL (36.4-46.3); Red Blood Count 4.15 M/uL (4.7-6.1); White Blood Count 7.97 K/uL (4.8-10.8)
[2021-12-07 07:52] LABS: INR 1.7 (0.9-1.1); Prothrombin Time 17.7 Seconds (9.0-12.0)
[2021-12-07 08:01] LABS: BUN Creatinine Ratio 26.3 (10-20); Calcium 8.6 mg/dl (8.5-10.1); Creatinine Clr Calc Pharmacy 93.6 ml/min; Est GFR (African American) 99.7 ml/min; Est GFR (Non-African American) 86.1 ml/min; Magnesium 2.1 mg/dl (1.7-2.4); Potassium 3.9 mmol/L (3.5-5.1)
[2021-12-07] MEDS: FUROSEMIDE 40 MG/4 ML VIAL IV SCH (08:15)
[2021-12-07] MEDS: ATORVASTATIN 40 MG TAB PO SCH (08:15)
[2021-12-07] MEDS: AMIODARONE 200 MG TAB PO SCH (08:15)
[2021-12-07] MEDS: VALSARTAN/SACUBITRIL 103/97MG TAB PO SCH (08:15)
[2021-12-07] MEDS: METOPROLOL SUCC 50MG EXT REL TAB PO SCH (08:15)
[2021-12-07] MEDS: ISOSORBIDE MONO EXTENDED REL 30 MG TABCR PO SCH (08:15)
[2021-12-07] MEDS ORDERED: WARFARIN SOD 10 MG TAB PO ONE (08:36)
--- NOTE | 2021-12-07 10:02 | Hospitalist Progress Note ---
Date of Service December 07, 2021 Assessment & Plan (1) Acute on chronic systolic heart failure: Plan: Treated with parenteral Lasix diuresis . Appreciate cardiology consultation. Entresto dosage has been uptitrated. Continue Entresto, Metoprolol (2) ARIAS (dyspnea on exertion): Plan: Due to CHF. Resolved with treatment of congestive heart failure. (3) CAD (coronary artery disease): Plan: 2 vessel bypass history. Stable. Continue current medical management (4) Sleep apnea: Plan: Continue BiPAP 21/11 Patient brought his machine from home (5) Ischemic cardiomyopathy: Plan: Follows with Dr. Valles - AICD placed in 07/31- - Current sensing and pacing appropriatlely (6) Afib: Plan: HX of - currently in AV paced rythm - Continue ammiodarone - Continue Warfarin. Daily INR (7) S/P AVR (aortic valve replacement): Plan: Mechanical valve [facility] - INR therapeutic on admission. Daily INR - Continue Warfarin Plan: l discharge to home today, December 07 Admission and Anticipated Discharge Date Admission Date: December 05, 2021 Subjective Alert and oriented. On room air. INR is low at 1.7 and Coumadin 10 mg will be dosed now. Mild hypokalemia has improved to 3.9. Intravenous Lasix has resulted in adequate diuresis. Entresto dosage has been uptitrated per car diology recommendation. Review of Systems Review of Systems: Constitutional-no fever or chills ENT-no blurred vision, no double vision, no epistaxis, no sore throat Respiratory-no cough, no wheezing, no shortness of breath Cardiac-no palpitations, no chest pain, no syncope GI-no nausea, vomiting, diarrhea, melena, hematochezia -no urinary retention, no urinary incontinence, no dysuria, no hematuria Musculoskeletal-no joint pain, no muscle tenderness Skin-no bruising, no rashes, no pruritus Neuro-no isolated weakness, no paresthesia, no weakness Psych-no depression, no anxiety Physical Exam Physical Exam: General-alert and oriented x3, no fevers, no chills HEENT-head atraumatic and normocephalic, TMs intact bilaterally, pupils equal and reactive to light, extraocular muscles intact Neck-no lymphadenopathy or thyromegaly, trachea midline Chest-clear to auscultation percussion. No rales wheezing or rhonchi Cardiac-regular rate and rhythm, normal S1 and S2, no murmurs Abdomen-normal bowel sounds, nontender, no hepatosplenomegaly Extremities-no cyanosis, clubbing, or edema Neuro-cranial nerves II through XII intact, motor and sensory function within normal limits, strength symmetrical , no focal deficits Psych-normal affect, normal mood Results & Data Results & Data ([facility]) Vital Signs (Past 12 Hours) Vital Signs Temp Pulse Pulse Resp BP BP Pulse Ox 12/07/21 07:57 62 12/07/21 07:48 36.4 C L 65 18 108/67 96 12/07/21 03:01 36.4 C L 64 18 101/63 96 12/06/21 23:20 36.4 C L 62 20 105/67 95 12/06/21 23:15 62 Laboratory Results 12/07/21 07:28 12/07/21 07:28 PG Care Time/CCT Total # of Minutes Spent Total Time Spent with Patient: Total time spent is greater than 50% in coordination of care (as documented) at patient's floor/unit and/or counseling patient: Coding Level of Care Code 08872 Subseq Hosp Care Lvl 3 Diagnoses Acute on chronic systolic heart failure I50.23 ARIAS (dyspnea on exertion) R06.00 CAD (coronary artery disease) I25.10 Sleep apnea G47.30 Ischemic cardiomyopathy I25.5 Afib I48.91 S/P AVR (aortic valve replacement) Z95.2
--- NOTE | 2021-12-07 10:04 | Discharge Summary ---
Date of Service December 07, 2021 Admission HPI Per Admitting Provider 61 YOM with medical history of: CABG 2 (2007), vessel, Aortic Valve replacement ([facility] mechanical 2007), CVA(right cerebellar with hemorrhagic conversion), HFrEF (25-30%), AFIB, AICD (2021), CAD, Afib, VIANCA (BiPAP15/6), dizziness, BPH. Patient comes to the EMD today for complaints of increase in fatigue with dyspnea with minimal exertion. He reports that this has been ongoing for the past 3-4 months but got worse over the past 2-3 days. Patient was notified by his cardiology service this morning following AICD interrogation noting he had increase in fluid retention. He was instructed to increase his oral Lasix 40mg PO from daily to BID. He does not weigh himself daily. He reports that he has 2-3 pillow orthopnea which has not changed. His legs are not more swollen and he denies his pants fitting tighter. He states that he has not missed any doses of his medications or any dietary indiscretion. Patient is not hypoxic and he is hemodynamically stable. In the EMD the patient has had routine labs performed to include BNP and HScTNI. HScTNI 22 with BNP 1708. Will evaluate patient overnight follow hemodynamics and symptoms. Given 40mg IV now in the EMD and will redose in the morning. COVID test on admission is: NEGATIVE Principal Diagnosis Acute on chronic systolic CHF, hypokalemia Discharge Exam General-alert and oriented x3, no fevers, no chills HEENT-head atraumatic and normocephalic, TMs intact bilaterally, pupils equal and reactive to light, extraocular muscles intact Neck-no lymphadenopathy or thyromegaly, trachea midline Chest-clear to auscultation percussion. No rales wheezing or rhonchi Cardiac-regular rate and rhythm, normal S1 and S2, no murmurs Abdomen-normal bowel sounds, nontender, no hepatosplenomegaly Extremities-no cyanosis, clubbing, or edema Neuro-cranial nerves II through XII intact, motor and sensory function within normal limits, strength symmetrical , no focal deficits Psych-normal affect, normal mood Discharge Data Allergies Allergy/AdvReac Type Severity Reaction Status Date / Time carvedilol AdvReac Intermediate Unknown Verified 12/05/21 15:15 fentanyl AdvReac Intermediate Chills Verified 12/05/21 15:15 itraconazole AdvReac Intermediate headache Verified 12/05/21 15:15 sertraline AdvReac Intermediate feels nutty Verified 12/05/21 15:15 Consultations 12/05/21 16:07 ED Decision to Admit Stat 12/06/21 08:12 Consult Cardiology Routine Hospital Course (1) Acute on chronic systolic heart failure: Treated with parenteral Lasix diuresis . Appreciate cardiology consultation. Entresto dosage has been uptitrated. Continue Entresto, Metoprolol (2) ARIAS (dyspnea on exertion): Due to CHF. Resolved with treatment of congestive heart failure. (3) CAD (coronary artery disease): 2 vessel bypass history. Stable. Continue current medical management (4) Sleep apnea: Continue BiPAP 21/11 Patient brought his machine from home (5) Ischemic cardiomyopathy: Follows with Dr. Valles - AICD placed in 07/31- - Current sensing and pacing appropriatlely (6) Afib: HX of - currently in AV paced rythm - Continue ammiodarone - Continue Warfarin. Daily INR (7) S/P AVR (aortic valve replacement): Mechanical valve [facility] - INR therapeutic on admission. Daily INR - Continue Warfarin l discharge to home today, December 07 Total Time Total Time Spent Total Time Spent (In Minutes): 35 minutes Discharge Plan Discharge Items Patient Disposition: Home - Self-Care Reason For Visit: DYSPNEA Discharge Diagnosis: Acute on chronic systolic congestive heart failure Activity: Resume your previous activity Non-emergency contact: Primary Care Provider and Director Mba Call non-emergency contact if: you have any medication questions and your symptoms worsen Follow-up/Referrals: Keo Hu MD [Primary Care Provider] - Diet: Heart Healthy Addtl Attending Provider Instructions: Entresto dosage has been increased Pending Studies at Discharge: No Stand-Alone Forms: My [employer], Smoking Cessation Medications and DC Order Prescriptions: New Entresto 97-103 mg Tablet 1 tab PO BID Qty: 60 RF: 0 Continued atorvastatin 80 mg tablet 80 mg PO QAM Qty: 90 RF: 3 warfarin 10 mg tablet 10 mg PO .COMPLEX Qty: 180 RF: 3 amiodarone 200 mg tablet 200 mg PO DAILY Qty: 90 RF: 3 furosemide 40 mg tablet 40 mg PO DAILY Qty: 90 RF: 3 metoprolol succinate 50 mg tablet extended release 24 hr 50 mg PO DAILY RF: 0 lorazepam 1 mg tablet 1 mg PO QID PRN (Reason: Anxiety) RF: 0 isosorbide mononitrate 30 mg tablet extended release 24 hr 30 mg PO QAM RF: 0 Discontinued Entresto 49-51 mg tablet 1 tab PO BID Qty: 60 RF: 2 Discharge Orders: Discharge Order (Routine); Ordered 12/07/21 Ordered By: Wagner Johnston Admission Data Admit Date/Time: 12/05/21 16:30 Attending Provider: Wagner Johnston Admit Provider: Fredy Villa Primary Care Provider: Keo Hu Other Providers: Fredy Villa ; Hill Rodriguez ; Kiran Cano ; Keo Schmid ; Sumeet Best ; Howie Rubio ; Howard Valles Jr ; Ishan Shaw ; Bree Ballard ; Carrie Kwong ; Rigoberto Hutchinson ; Robbin Multani ; Wagner Page ; Arabella Loza ; Lauren Armijo ; Eric Sage ; Lex Delgado Michael K. ; Nick Clarke ; Sumeet Curtis V. Coding Level of Care Code D/C DAY MANAGEMENT >30 MINS Diagnoses Acute on chronic systolic heart failure I50.23 ARIAS (dyspnea on exertion) R06.00 CAD (coronary artery disease) I25.10 Sleep apnea G47.30 Ischemic cardiomyopathy I25.5 Afib I48.91 S/P AVR (aortic valve replacement) Z95.2
--- NOTE | 2021-12-07 12:31 | Cardiology Progress Note ---
Date of Service December 07, 2021 Assessment & Plan (1) ARIAS (dyspnea on exertion): (2) Acute on chronic systolic heart failure: (3) Ischemic cardiomyopathy: (4) History of aortic valve replacement with metallic valve: (5) Hx of CABG: (6) Presence of biventricular implantable cardioverter-defibrillator (ICD): (7) Paroxysmal atrial fibrillation: (8) Anticoagulant long-term use: Plan: He seems to be improved, but certainly has an element of exercise intolerance and dyspnea related to his severely reduced LV systolic function. His entresto Was increased. He seems to be tolerating this dose so far. He appears to be stable for discharge with resumption of his outpatient medical regimen including a higher dose of entresto. he would likely benefit from initiation of an aldosterone receptor antagonist as well. He did have a breast lump evaluated previously, so the pleura known may be a better option for him. This can be performed in the outpatient setting. He also verbalized some interest in pain closer attention to his weight and medical therapy. He would seem to be a good candidate for our congestive Heart failure Clinic, and I can make the referral. Admission and Anticipated Discharge Date Admission Date: December 05, 2021 Subjective this morning the patient claims to be feeling better. He states that he is at his "good baseline" as opposed to his "bad baseline". he has not done much ambulation around the room. As such, he did not feel comfortable commenting on any dizziness or lightheadedness. He did sleep well last night which is unusual for him. Physical Exam Physical Exam: The patient is alert and oriented. Mood and affect appeared normal. He answered all questions appropriately. HEENT: Pupils are equal and reactive to light and accommodation. Extraocular movements are intact. The sclerae are anicteric. Neuro: Cranial nerves intact Lungs: Clear to auscultation bilaterally. He has good air movement without use of accessory muscles. No rales wheezes or rhonchi. Cardiac: Heart demonstrates a regular rate and rhythm. Normal S1 and Chrisp S2. crescendo systolic murmur Pulses: The patient has palpable radial pulses bilaterally that are equal in intensity Extremities: There was no evidence of hypoperfusion. There is no cyanosis or clubbing. Skin: I did not appreciate any rashes on examination today. Results & Data ([facility]) Vital Signs (Past 12 Hours) Vital Signs Temp Pulse Pulse Pulse Resp BP BP 12/07/21 12:00 36.4 C L 81 65 18 108/67 105/67 12/07/21 07:57 62 12/07/21 07:48 36.4 C L 65 18 108/67 12/07/21 03:01 36.4 C L 64 18 101/63 Pulse Ox 12/07/21 12:00 96 12/07/21 07:57 12/07/21 07:48 96 12/07/21 03:01 96 Laboratory Results Abnormal Lab Results 12/06/21 12/07/21 12/07/21 06:32 07:28 07:28 WBC 7.97 RBC 4.15 L Hgb 13.6 L Hct 39.7 L MCV 95.7 MCH 32.8 MCHC 34.3 RDW Std Deviation 51.5 H RDW Coeff of [place] 14.6 H Plt Count 154 MPV 12.7 H Immature Gran % (Auto) 0.1 Neut % (Auto) 81.9 Lymph % (Auto) 11.8 [place] % (Auto) 5.5 Eos % (Auto) 0.6 Baso % (Auto) 0.1 Neut # (Auto) 6.52 H Lymph # (Auto) 0.94 L [place] # (Auto) 0.44 Eos # (Auto) 0.05 Baso # (Auto) 0.01 Immature Gran # (Auto) 0.01 PT 17.7 H INR 1.7 H Sodium Potassium Chloride Carbon Dioxide Anion Gap BUN Creatinine Est Cr Clr Drug Dosing Est GFR ( Amer) Est GFR (Non-Af Amer) BUN/Creatinine Ratio Glucose Calcium Magnesium Hepatitis C Ab (EIA) NON-REACTIVE Hep C Ab Signal/Cutoff 0.01 12/07/21 07:28 WBC RBC Hgb Hct MCV MCH MCHC RDW Std Deviation RDW Coeff of [place] Plt Count MPV Immature Gran % (Auto) Neut % (Auto) Lymph % (Auto) [place] % (Auto) Eos % (Auto) Baso % (Auto) Neut # (Auto) Lymph # (Auto) [place] # (Auto) Eos # (Auto) Baso # (Auto) Immature Gran # (Auto) PT INR Sodium 139 Potassium 3.9 Chloride 106 Carbon Dioxide 26 Anion Gap 7 BUN 25 H Creatinine 0.95 Est Cr Clr Drug Dosing 93.6 Est GFR ( Amer) 99.7 Est GFR (Non-Af Amer) 86.1 BUN/Creatinine Ratio 26.3 H Glucose 101 H Calcium 8.6 Magnesium 2.1 Hepatitis C Ab (EIA) Hep C Ab Signal/Cutoff Diagnostic Findings echocardiogram performed yesterday demonstrating persistently low ejection fraction and global LV dysfunction with dilation. PG Care Time/CCT Total # of Minutes Spent Total Time Spent with Patient: Total time spent is greater than 50% in coordination of care (as documented) at patient's floor/unit and/or counseling patient: Coding Level of Care Code 17333 Subseq Obs Care Lvl 2 Diagnoses ARIAS (dyspnea on exertion) R06.00 Acute on chronic systolic heart failure I50.23 Ischemic cardiomyopathy I25.5 History of aortic valve replacement with metallic valve Z95.4 Hx of CABG Z95.1 Presence of biventricular implantable cardioverter-defibrillator (ICD) Z95.810 Paroxysmal atrial fibrillation I48.0 Anticoagulant long-term use Z79.01
[2021-12-07] MEDS ORDERED: WARFARIN SOD 10 MG TAB PO SCH (16:00)
== END 2021-12-07 12:33 | disposition home or self-care (01) ==
LOC: ED 13:41 → 2W 13:41 → SUATTDRO 16:30 → 2W 17:15